=== PATIENT | female | born 1945 | race Caucasian/White ===

== ENCOUNTER → 2016-08-31 | Outpatient (REF) | payer OTHER, MEDICARE ==
[2016-08-31 10:10] LABS: BASO # 0.1 K/mm3 (0.0-0.2); BASO % 1.1 % (0.0-1.0); EOS # 0.5 K/mm3 (0.0-0.50); EOS % 6.2 % (0.0-3.0); LARGE UNSTAINED CELL # 0.2 K/mm3 (0.0-0.4); LARGE UNSTAINED CELL % 2.1 % (0.0-4.0); LYMPH # 2.1 K/mm3 (1.5-4.5); LYMPH % 24.7 % (24.0-44.0); MEAN CORPUSCULAR HEMOGLOBIN 29.1 pg (27.0-33.0); MEAN CORPUSCULAR VOLUME 88.3 fl (80.0-96.0); MONO # 0.8 K/mm3 (0.0-0.8); MONO % 9.8 % (0.0-5.0); NEUTROPHILS # 4.3 K/mm3 (1.8-7.7); NEUTROPHILS % 56.1 % (36.0-66.0); PLATELET COUNT, AUTOMATED 273 k/mm3 (150-450); RED CELL DISTRIBUTION WIDTH 13.1 % (11.5-14.5); WHITE BLOOD COUNT 7.7 K/mm3 (4.0-10.0)
[2016-08-31 10:11] LABS: ALBUMIN 3.8 GM/DL (3.2-5.2); ALBUMIN/GLOBULIN RATIO 1.12 (1.00-1.93); ALKALINE PHOSPHATASE 88 U/L (45-117); ALT/SGPT 22 U/L (12-78); ANION GAP 5 MEQ/L (8-16); AST/SGOT 20 U/L (15-37); BILIRUBIN,TOTAL 0.2 MG/DL (0.2-1.0); BLOOD UREA NITROGEN 24 MG/DL (7-18); CALCIUM LEVEL 9.3 MG/DL (8.8-10.2); CARBON DIOXIDE LEVEL 33 MEQ/L (21-32); CHLORIDE LEVEL 105 MEQ/L (98-107); CHOLESTEROL LEVEL 211 MG/DL (<200); GLOMERULAR FILTRATION RATE > 60.0 (>39); GLUCOSE, FASTING 108 MG/DL (83-110); POTASSIUM SERUM 3.8 MEQ/L (3.5-5.1); SODIUM LEVEL 143 MEQ/L (136-145); TOTAL PROTEIN 7.2 GM/DL (6.4-8.2); TRIGLYCERIDES LEVEL 80 MG/DL (<150)
== END ==
LOC: M LABDRAW1 09:27
PROVIDERS: ATTEND Family Medicine
DX: E78.00 Pure hypercholesterolemia, unspecified (principal); I10 Essential (primary) hypertension; R73.01 Impaired fasting glucose

== ENCOUNTER → 2016-11-28 | Outpatient (REF) | payer OTHER, MEDICARE ==
[2016-11-28 12:55] LABS: ALBUMIN 3.6 GM/DL (3.2-5.2); ALBUMIN/GLOBULIN RATIO 1.03 (1.00-1.93); ALKALINE PHOSPHATASE 91 U/L (45-117); ALT/SGPT 23 U/L (12-78); ANION GAP 8 MEQ/L (8-16); AST/SGOT 17 U/L (15-37); BILIRUBIN,TOTAL 0.4 MG/DL (0.2-1.0); BLOOD UREA NITROGEN 23 MG/DL (7-18); CALCIUM LEVEL 9.4 MG/DL (8.8-10.2); CARBON DIOXIDE LEVEL 31 MEQ/L (21-32); CHLORIDE LEVEL 102 MEQ/L (98-107); CHOLESTEROL LEVEL 248 MG/DL (<200); CREATININE FOR GFR 0.65 MG/DL (0.55-1.02); GLOMERULAR FILTRATION RATE > 60.0 (>39); GLUCOSE, FASTING 100 MG/DL (83-110); POTASSIUM SERUM 3.4 MEQ/L (3.5-5.1); SODIUM LEVEL 141 MEQ/L (136-145); TOTAL PROTEIN 7.1 GM/DL (6.4-8.2); TRIGLYCERIDES LEVEL 111 MG/DL (<150)
== END ==
LOC: M LABDRAW1 10:18
PROVIDERS: ATTEND Family Medicine
DX: R73.9 Hyperglycemia, unspecified (principal); E78.00 Pure hypercholesterolemia, unspecified

== ENCOUNTER → 2017-03-01 | Outpatient (REF) | payer OTHER, MEDICARE ==
[2017-03-01 14:20] LABS: ALKALINE PHOSPHATASE 90 U/L (45-117); ALT/SGPT 17 U/L (12-78); ANION GAP 9 MEQ/L (8-16); AST/SGOT 14 U/L (7-37); BILIRUBIN,TOTAL 0.3 MG/DL (0.2-1.0); BLOOD UREA NITROGEN 33 MG/DL (7-18); CALCIUM LEVEL 9.9 MG/DL (8.8-10.2); CARBON DIOXIDE LEVEL 31 MEQ/L (21-32); CHLORIDE LEVEL 99 MEQ/L (98-107); CHOLESTEROL LEVEL 199 MG/DL (<200); CREATININE FOR GFR 0.76 MG/DL (0.55-1.02); GLOMERULAR FILTRATION RATE > 60.0 (>39); GLUCOSE, FASTING 106 MG/DL (83-110); POTASSIUM SERUM 3.7 MEQ/L (3.5-5.1); SODIUM LEVEL 139 MEQ/L (136-145); TRIGLYCERIDES LEVEL 86 MG/DL (<150)
[2017-03-01 14:21] LABS: ALBUMIN 3.8 GM/DL (3.2-5.2); ALBUMIN/GLOBULIN RATIO 1.09 (1.00-1.93); TOTAL PROTEIN 7.3 GM/DL (6.4-8.2)
== END ==
LOC: M LAB REF 08:11
PROVIDERS: ATTEND Physician Assistant Medical
DX: E78.00 Pure hypercholesterolemia, unspecified (principal); I10 Essential (primary) hypertension; R73.03 Prediabetes

== ENCOUNTER → 2017-10-03 | Outpatient (REF) | payer OTHER, MEDICARE ==
[2017-10-03 12:02] LABS: HEMATOCRIT 37.6 % (36.0-47.0); HEMOGLOBIN 12.1 g/dl (12.0-15.5); MEAN CORPUSCULAR HEMOGLOBIN 28.5 pg (27.0-33.0); MEAN CORPUSCULAR HGB CONC 32.2 g/dl (32.0-36.5); MEAN CORPUSCULAR VOLUME 88.5 fl (80.0-96.0); PLATELET COUNT, AUTOMATED 353 10^3/uL (150-450); RED BLOOD COUNT 4.25 10^6/uL (4.00-5.40); RED CELL DISTRIBUTION WIDTH 13.9 % (11.5-14.5)
[2017-10-03 12:21] LABS: ALBUMIN/GLOBULIN RATIO 1.18 (1.00-1.93); ALKALINE PHOSPHATASE 106 U/L (45-117); ALT/SGPT 20 U/L (12-78); ANION GAP 8 MEQ/L (8-16); AST/SGOT 17 U/L (7-37); BILIRUBIN,TOTAL 0.3 MG/DL (0.2-1.0); BLOOD UREA NITROGEN 37 MG/DL (7-18); CALCIUM LEVEL 10.1 MG/DL (8.8-10.2); CARBON DIOXIDE LEVEL 30 MEQ/L (21-32); CHLORIDE LEVEL 105 MEQ/L (98-107); CHOLESTEROL LEVEL 167 MG/DL (<200); CHOLESTEROL RISK RATIO 2.197 (<5); CREATININE FOR GFR 0.85 MG/DL (0.55-1.30); GLOMERULAR FILTRATION RATE > 60.0 (>39); GLUCOSE, FASTING 106 MG/DL (70-100); HDL CHOLESTEROL 76 MG/DL (>40); NON-HDL-C 91 MG/DL; POTASSIUM SERUM 3.9 MEQ/L (3.5-5.1); SODIUM LEVEL 143 MEQ/L (136-145); TOTAL PROTEIN 7.4 GM/DL (6.4-8.2); TRIGLYCERIDES LEVEL 70 MG/DL (<150)
[2017-10-03 12:32] LABS: ESTIMATED AVERAGE GLUCOSE 128 MG/DL (60-110); HEMOGLOBIN A1c 6.1 %
[2017-10-03 12:39] LABS: TOTAL 25(OH) VITAMIN D 19.5 NG/ML (30.0-100.0)
== END ==
LOC: M LABDRAW1 08:14
DX: Z00.00 Encounter for general adult medical examination without abnormal findings (principal); R73.03 Prediabetes; E78.00 Pure hypercholesterolemia, unspecified; E55.9 Vitamin D deficiency, unspecified; Z79.899 Other long term (current) drug therapy
CPT/HCPCS: 80053

== ENCOUNTER → 2017-10-29 | Outpatient (CLI) | payer OTHER ==
[~2017-10-29] MED LIST: GASTROGRAFIN SOLUTION 30ML (Q9963) As Ordered; ISOVUE-370 76% 100ML VIAL (Q9967) As Ordered
== END ==
LOC: M RAD 13:37
DX: R14.0 Abdominal distension (gaseous) (principal)
CPT/HCPCS: Q9963

== ENCOUNTER → 2017-11-04 | Outpatient (CLI) | payer OTHER ==
[~2017-11-04] MED LIST changes: -GASTROGRAFIN SOLUTION 30ML (Q9963) As Ordered; -ISOVUE-370 76% 100ML VIAL (Q9967) As Ordered; +METHACHOLINE KIT (J7674) INH
== END ==
LOC: M CARPUL 06:47
DX: R06.02 Shortness of breath (principal)
CPT/HCPCS: J7674

== ENCOUNTER → 2018-05-13 | Outpatient (REF) | payer OTHER ==
[2018-05-13 10:59] LABS: HEMATOCRIT 40.1 % (36.0-47.0); HEMOGLOBIN 13.2 g/dl (12.0-15.5); MEAN CORPUSCULAR HEMOGLOBIN 28.2 pg (27.0-33.0); MEAN CORPUSCULAR HGB CONC 32.9 g/dl (32.0-36.5); MEAN CORPUSCULAR VOLUME 85.7 fl (80.0-96.0); PLATELET COUNT, AUTOMATED 377 10^3/uL (150-450); RED BLOOD COUNT 4.68 10^6/uL (4.00-5.40); WHITE BLOOD COUNT 8.3 10^3/uL (4.0-10.0)
[2018-05-13 11:13] LABS: ALT/SGPT 18 U/L (12-78); BILIRUBIN,TOTAL 0.3 MG/DL (0.2-1.0); BLOOD UREA NITROGEN 32 MG/DL (7-18); CALCIUM LEVEL 9.6 MG/DL (8.8-10.2); CARBON DIOXIDE LEVEL 28 MEQ/L (21-32); CHLORIDE LEVEL 100 MEQ/L (98-107); CHOLESTEROL LEVEL 199 MG/DL (<200); CHOLESTEROL RISK RATIO 2.117 (<5); CREATININE FOR GFR 0.84 MG/DL (0.55-1.30); GLOMERULAR FILTRATION RATE > 60.0 (>39); GLUCOSE, FASTING 109 MG/DL (70-100); HDL CHOLESTEROL 94 MG/DL (>40); LDL CHOLESTEROL 91 MG/DL (<100); NON-HDL-C 105 MG/DL; POTASSIUM SERUM 3.1 MEQ/L (3.5-5.1); SODIUM LEVEL 140 MEQ/L (136-145); TOTAL 25(OH) VITAMIN D 30.1 NG/ML (30.0-100.0); TOTAL PROTEIN 8.1 GM/DL (6.4-8.2); TRIGLYCERIDES LEVEL 69 MG/DL (<150)
[2018-05-13 11:40] LABS: HEMOGLOBIN A1c 6.4 %
== END ==
LOC: M LABDRAW1 09:21
PROVIDERS: ATTEND Nurse Practitioner Adult Health
DX: E78.00 Pure hypercholesterolemia, unspecified (principal); E55.9 Vitamin D deficiency, unspecified; R73.03 Prediabetes

== ENCOUNTER → 2018-08-14 | Outpatient (CLI) | payer MEDICARE ==
--- NOTE | 2018-08-14 13:50 | REP ---
ABDOMEN: TWO VIEWS. HISTORY: Hematuria. FINDINGS: Two views of the abdomen demonstrate a normal bowel gas pattern. There are surgical clips in the left pelvis. There is a levoconvex lumbar scoliosis with degenerative disc and facet changes. Psoas margins and flank stripes are intact. No mass or organomegaly is seen. There is a calcification overlying the right kidney measuring 0.5 cm in diameter compatible with an intrarenal calculus. There are other calcifications believed to be costochondral calcifications which project outside the kidney. Some vascular calcifications noted. IMPRESSION: 5 mm calcification projecting over the right kidney may be an intrarenal stone. Scoliosis. Normal bowel gas pattern. Electronically Signed by Cm Borja MD 08/14/2018 02:10 P
== END ==
LOC: M WUC 12:38
PROVIDERS: ATTEND Nurse Practitioner Adult Health
DX: N20.0 Calculus of kidney (principal); R30.0 Dysuria; R31.9 Hematuria, unspecified
CPT/HCPCS: 74018; 81002; 87086; G0463

== ENCOUNTER → 2018-08-21 | Outpatient (REF) | payer MEDICARE ==
[2018-08-21 17:33] LABS: APPEARANCE, URINE HAZY (CLEAR); BACTERIA, URINE AUTO NEGATIVE (NEGATIVE); BILIRUBIN, URINE AUTO NEGATIVE (NEGATIVE); BLOOD, URINE BLOOD NEGATIVE (NEGATIVE); COLOR, URINE YELLOW (YELLOW); GLUCOSE, URINE (UA) AUTO NEGATIVE (NEGATIVE); KETONE, URINE AUTO NEGATIVE (NEGATIVE); LEUKOCYTE ESTERASE, URINE AUTO 3+ (NEGATIVE); NITRITE, URINE AUTO NEGATIVE (NEGATIVE); PROTEIN, URINE AUTO NEGATIVE (NEGATIVE); RBC, URINE AUTO 1 /HPF (0-3); SPECIFIC GRAVITY URINE AUTO 1.017 (1.002-1.035); SQUAMOUS EPITHELIAL CELL UR AU 2 /HPF (0-6); UROBILINOGEN, URINE AUTO 0.2 mg/dL (0.0-2.0); WBC, URINE AUTO 13 /HPF (0-3)
== END ==
LOC: M SMT 17:11
PROVIDERS: ATTEND Nurse Practitioner Women's Health
DX: R31.29 Other microscopic hematuria (principal)
CPT/HCPCS: 36415; 80048; 81001; 87086; 88108; G0463

== ENCOUNTER → 2018-08-21 | Outpatient (CLI) | payer MEDICARE ==
[2018-08-21 17:42] LABS: CALCIUM LEVEL 9.5 MG/DL (8.8-10.2); CREATININE FOR GFR 1.39 MG/DL (0.55-1.30); GLOMERULAR FILTRATION RATE 39.6 (>39)
== END ==
LOC: M SMT 15:19
PROVIDERS: ATTEND Nurse Practitioner Women's Health
DX: R31.29 Other microscopic hematuria (principal)

== ENCOUNTER 2018-10-30 05:58 | Day surgery (SDC) | payer MEDICARE ==
[~2018-10-30] VITALS: Ht 149.9 cm; Wt 68.9 kg
[~2018-10-30 05:58] MED LIST changes: +COQ1200C3 PO; +CVS400CA PO; +DOCU-123 PO; +ESSE250T PO; +GEMF600T5 PO; +GLUCCAP5 PO; +LISI-538 PO; +MAPA325T2 PO; +MAPA500C PO; -METHACHOLINE KIT (J7674) INH; +MULTCAP PO; +OCUV1CAP4 PO; +OMEG12004 PO; +OYST1TAB PO; +VITA1CAP25 PO; +VITA80003 PO; +ZANT150T40 PO; +[UNRECOGNIZED DRUG - CODE] PO
[2018-10-30] MEDS ORDERED: ACETAMINOPHEN 325 MG TAB PO PRN (06:00)
[2018-10-30] MEDS ORDERED: BALANCED SALT IRRIGATION SOLUTION 500ML BAG (FOR OR EYE MACHINE) As Ordered ONE (06:12)
[2018-10-30] MEDS ORDERED: POVIDONE-IODINE 5% OPHTH PREP SOL 30ML As Ordered ONE (06:12)
[2018-10-30] MEDS ORDERED: CEFUROXIME 1MG/0.1ML INTRACAMERAL INJ As Ordered ONE (06:13)
[2018-10-30] MEDS ORDERED: DUOVISC (0.50ML VISCOAT/0.55ML PROVISC) OPHTH KIT As Ordered ONE (06:13)
[2018-10-30] MEDS ORDERED: LIDOCAINE 0.75%/EPINEPHRINE 0.025% IN BSS 1ML SYR INTRACAMERAL (OR ONLY) As Ordered ONE (06:13)
[2018-10-30] MEDS ORDERED: MIDAZOLAM INJ 2 MG/2 ML VIAL (J2250) As Ordered ONE (06:59)
[2018-10-30] MEDS ORDERED: fentaNYL 100 MCG/2 ML INJECTION (J3010) As Ordered ONE (06:59)
[2018-10-30] MEDS ORDERED: TROPICAMIDE 1% OPHTH SOLN 2ML OS ONE (07:00)
[2018-10-30] MEDS ORDERED: PHENYLEPHRINE 2.5% OPHTH SOL 2ML OS ONE (07:00)
[2018-10-30] MEDS ORDERED: PROPARACAINE 0.5% OPHTH SOL 15ML OS ONE (07:00)
[2018-10-30] MEDS ORDERED: OFLOXACIN 0.3 % (OCUFLOX) OPTH SOL 5ML OS ONE (07:00)
[2018-10-30 08:40] VITALS: BP 100/57
[2018-10-30] MEDS ORDERED: PROMETHAZINE INJ 25 MG/ML VIAL (J2550) IV PRN (08:45)
[2018-10-30] MEDS ORDERED: METOCLOPRAMIDE INJ 10MG/2ML VIAL (J2765) IV PRN (08:45)
[2018-10-30] MEDS ORDERED: TRIMETHOBENZAMIDE 300 MG CAP PO PRN (08:45)
[2018-10-30] MEDS ORDERED: oxyCODONE 5MG TAB PO PRN (08:45)
[2018-10-30] MEDS ORDERED: fentaNYL 100 MCG/2 ML INJECTION (J3010) IV PRN (08:45)
--- NOTE | 2018-10-31 22:30 | RO ---
DATE OF PROCEDURE: 10/30/2018 PREOPERATIVE DIAGNOSIS: 1. Visually significant nuclear sclerotic cataract left eye. 2. Presbyopia, left eye POSTOPERATIVE DIAGNOSIS: 1. Visually significant nuclear sclerotic cataract left eye. PROCEDURE PERFORMED: 1. Cataract extraction with use of phacoemulsification, and placement of intraocular lens, SN6AD1, 20.5 D, left eye, with use of intraoperative aberrometry. SURGEON: Dr. Barry Whitaker VENDING MACHINE REPAIRER: ANESTHESIA: Local with monitored anesthesia care (MAC). COMPLICATIONS: None. POSTOPERATIVE CONDITION: Stable. INDICATION FOR SURGERY: 1. Blurred vision affecting patient's activities of daily living. DESCRIPTION OF PROCEDURE: The patient was seen in the preoperative area and properly identified. The correct operative eye was identified and marked. The patient received topical anesthetic, antibiotics, and topical dilating drops. The patient was then transferred to the operating room. The correct side was re-identified and a time-out was performed. The eye was prepped and draped in a sterile fashion. The eyelids were isolated with Tegaderm tape, and the lids were held open with an adjustable speculum. A 1.0 mm paracentesis incision was made. Intraocular preservative-free Shugarcaine was then injected into the anterior chamber through the paracentesis. Using a 2.4 mm sharp-tipped keratome, the anterior chamber was entered via a temporal clear corneal incision. A continuous curvilinear capsulorrhexis was created with Utrata forceps. Hydrodissection was performed with balanced salt solution (BSS) on a blunt cannula until the nucleus was able to rotate freely. The crystalline lens was phacoemulsified and aspirated. Irrigation/aspiration was used to remove the cortical material. Cohesive viscoelastic was placed into the capsular bag to deepen it. The Optiwave Refractive Analysis (ORA) device was turned on, two sets of measurements were obtained, and the implant power was confirmed. The implant was placed into the capsular bag and allowed to unfold. Placement was confirmed by visualizing the anterior capsulorrhexis. Irrigation/aspiration was used to remove the viscoelastic. The clear corneal incision was hydrated with BSS on a blunt cannula. The lens was well positioned. The incisions were then tested for leaks and found to be negative. The eye was then palpated for appropriate pressure and adjusted accordingly with BSS. The eyelid speculum was then carefully removed. A shield was placed over the eye. The patient tolerated the procedure well and was discharged to the recovery unit in a stable condition. BETHANY
== END 2018-10-30 08:59 | disposition home or self-care (01) ==
LOC: M SDC 05:58
PROVIDERS: ATTEND Ophthalmology
DX: H25.12 Age-related nuclear cataract, left eye (principal); E11.9 Type 2 diabetes mellitus without complications; I10 Essential (primary) hypertension; E78.5 Hyperlipidemia, unspecified; G47.30 Sleep apnea, unspecified; K21.9 Gastro-esophageal reflux disease without esophagitis; Z79.899 Other long term (current) drug therapy
CPT/HCPCS: 66984; 92015; J2250; J3010; V2788

== ENCOUNTER → 2019-05-12 | Outpatient (CLI) | payer MEDICARE ==
--- NOTE | 2019-05-12 16:42 | REP ---
The PA and lateral chest: There are no comparisons. The lung adams are clear. The cardiac size is normal. The maria victoria and mediastinum are unremarkable. There is thoracic scoliosis convex right in the mid thoracic spine left at the thoracolumbar junction. Impression: Scoliosis. Otherwise, negative PA and lateral chest Electronically Signed by Lauri Smith MD 05/12/2019 04:34 P
== END ==
LOC: M WUC 10:49
PROVIDERS: ATTEND Nurse Practitioner Adult Health
DX: R05 Cough (principal)

== ENCOUNTER → 2019-05-15 | Outpatient (REF) | payer MEDICARE ==
[2019-05-15 11:51] LABS: ALBUMIN 3.8 GM/DL (3.2-5.2); BILIRUBIN,TOTAL 0.5 MG/DL (0.2-1.0); CHOLESTEROL RISK RATIO 2.675 (<5); CREATININE FOR GFR 0.98 MG/DL (0.55-1.30); GLOMERULAR FILTRATION RATE 59.1 (>39); POTASSIUM SERUM 4.8 MEQ/L (3.5-5.1); TOTAL PROTEIN 7.1 GM/DL (6.4-8.2)
[2019-05-15 12:06] LABS: TOTAL 25(OH) VITAMIN D 40.8 NG/ML (30.0-100.0)
[2019-05-15 12:07] LABS: HEMOGLOBIN A1c 6.4 %
== END ==
LOC: M LABDRAW1 09:02
PROVIDERS: ATTEND Nurse Practitioner Adult Health
DX: R73.03 Prediabetes (principal); I10 Essential (primary) hypertension; E55.9 Vitamin D deficiency, unspecified; E78.00 Pure hypercholesterolemia, unspecified; Z79.899 Other long term (current) drug therapy

== ENCOUNTER → 2019-10-01 | Outpatient (REF) | payer MEDICARE ==
[~2019-10-01] MED LIST changes: -MAPA325T2 PO; +MAPA325T8 PO
[2019-10-01 17:30] LABS: APPEARANCE, URINE CLOUDY (CLEAR); BACTERIA, URINE AUTO NEGATIVE (NEGATIVE); BILIRUBIN, URINE AUTO NEGATIVE (NEGATIVE); BLOOD, URINE BLOOD 1+ (NEGATIVE); COLOR, URINE YELLOW (YELLOW); GLUCOSE, URINE (UA) AUTO NEGATIVE (NEGATIVE); KETONE, URINE AUTO NEGATIVE (NEGATIVE); LEUKOCYTE ESTERASE, URINE AUTO 3+ (NEGATIVE); MUCUS, URINE SMALL (NEGATIVE); NITRITE, URINE AUTO NEGATIVE (NEGATIVE); PROTEIN, URINE AUTO NEGATIVE (NEGATIVE); RBC, URINE AUTO 6 /HPF (0-3); SPECIFIC GRAVITY URINE AUTO 1.019 (1.002-1.035); SQUAMOUS EPITHELIAL CELL UR AU 8 /HPF (0-6); UROBILINOGEN, URINE AUTO 0.2 mg/dL (0.0-2.0); WBC, URINE AUTO 35 /HPF (0-3)
== END ==
LOC: M SFHCPLAZ 16:34
PROVIDERS: ATTEND Physician Assistant Medical
DX: R35.0 Frequency of micturition (principal)

== ENCOUNTER → 2019-12-01 | Outpatient (REF) | payer MEDICARE ==
[2020-01-15 21:10] LABS: ALBUMIN 3.8 GM/DL (3.2-5.2); BILIRUBIN,TOTAL 0.4 MG/DL (0.2-1.0); CALCIUM LEVEL 10.4 MG/DL (8.8-10.2); CHOLESTEROL RISK RATIO 1.877 (<5); CREATININE FOR GFR 1.05 MG/DL (0.55-1.30); GLOMERULAR FILTRATION RATE 54.4 (>39); POTASSIUM SERUM 4.9 MEQ/L (3.5-5.1); TOTAL 25(OH) VITAMIN D 24.9 NG/ML (30.0-100.0); TOTAL PROTEIN 7.1 GM/DL (6.4-8.2)
== END ==
LOC: M LABWUC 07:24 → M SFHCPLAZ 07:24
PROVIDERS: ATTEND Nurse Practitioner Adult Health
DX: R73.03 Prediabetes (principal); E55.9 Vitamin D deficiency, unspecified; I10 Essential (primary) hypertension; E78.00 Pure hypercholesterolemia, unspecified; Z79.899 Other long term (current) drug therapy

== ENCOUNTER → 2020-03-11 | Outpatient (CLI) | payer MEDICARE ==
--- NOTE | 2020-03-11 12:38 | REPPI ---
INDICATION: PAIN. COMPARISON: None. TECHNIQUE: Four views FINDINGS: No acute fracture or destructive osseous lesion. The mortise is intact. There is a smoothly marginated well corticated 5 mm sized ossific density just distal to the distal fibular tip. There is a small plantar calcaneal heel spur. IMPRESSION: Chronic changes as described above. <Electronically signed by Lobito Vaz > 03/11/20 [id number]
--- NOTE | 2020-03-11 12:49 | REPPI ---
INDICATION: PAIN. COMPARISON: 12/21/2011 TECHNIQUE: Four views FINDINGS: There is a hallux valgus deformity which is essentially unchanged. There is asymmetric joint space narrowing involving the 1st metatarsophalangeal joint. More mild degenerative changes seen throughout the foot. These, however, have increased from the prior exam. There is a plantar calcaneal heel spur. This has increased in size from the prior exam. There is no evidence of an acute fracture.. IMPRESSION: Chronic changes as described above. <Electronically signed by Lobito Vaz > 03/11/20 [id number]
== END ==
LOC: M PLAIMG 11:23
PROVIDERS: ATTEND Physician Assistant
DX: M20.12 Hallux valgus (acquired), left foot (principal); M19.072 Primary osteoarthritis, left ankle and foot; M77.32 Calcaneal spur, left foot; M25.572 Pain in left ankle and joints of left foot; M79.672 Pain in left foot

== ENCOUNTER → 2020-05-25 | Outpatient (CLI) | payer MEDICARE ==
[~2020-05-25] MED LIST changes: -LISI-538 PO; +LISI20TA33 PO
[2020-05-25 17:19] LABS: HEMATOCRIT 35.7 % (36.0-47.0); HEMOGLOBIN 11.4 g/dl (12.0-15.5); MEAN CORPUSCULAR HEMOGLOBIN 28.9 pg (27.0-33.0); MEAN CORPUSCULAR HGB CONC 31.9 g/dl (32.0-36.5); MEAN CORPUSCULAR VOLUME 90.4 fl (80.0-96.0); PLATELET COUNT, AUTOMATED 462 10^3/uL (150-450); RED BLOOD COUNT 3.95 10^6/uL (4.00-5.40); WHITE BLOOD COUNT 12.4 10^3/uL (4.0-10.0)
== END ==
LOC: M PLALAB 14:16
PROVIDERS: ATTEND Physician Assistant Medical
DX: R19.5 Other fecal abnormalities (principal)
CPT/HCPCS: 36415; 85027; G0463

== ENCOUNTER → 2020-06-02 | Outpatient (REF) | payer MEDICARE ==
[2020-06-02 11:04] LABS: ALBUMIN 4.1 GM/DL (3.2-5.2); BILIRUBIN,TOTAL 0.2 MG/DL (0.2-1.0); CALCIUM LEVEL 10.1 MG/DL (8.8-10.2); CHOLESTEROL RISK RATIO 2.614 (<5); CREATININE FOR GFR 1.01 MG/DL (0.55-1.30); GLOMERULAR FILTRATION RATE 56.9 (>39); POTASSIUM SERUM 4.9 MEQ/L (3.5-5.1); TOTAL PROTEIN 7.5 GM/DL (6.4-8.2)
== END ==
LOC: M SFHCPLAZ 08:02
PROVIDERS: ATTEND Nurse Practitioner Adult Health
DX: R73.03 Prediabetes (principal); E55.9 Vitamin D deficiency, unspecified; I10 Essential (primary) hypertension; E78.00 Pure hypercholesterolemia, unspecified; R19.5 Other fecal abnormalities; D64.9 Anemia, unspecified

== ENCOUNTER → 2020-06-02 | Outpatient (CLI) | payer MEDICARE ==
[2020-06-02 11:00] LABS: PERCENT SATURATION 15.5 % (13.2-45.0)
== END ==
LOC: M PLALAB 08:00
PROVIDERS: ATTEND Physician Assistant Medical
DX: R19.5 Other fecal abnormalities (principal); D64.9 Anemia, unspecified

== ENCOUNTER → 2020-06-11 | Outpatient (CLI) | payer MEDICARE ==
[~2020-06-11] MED LIST changes: +CINN500C15 PO; +COQ-100C5 PO; +CYAN500T14 PO; +D31000TA2 PO; +FAMO20TA5 PO; +GNP10TAB20 PO; +IBUP-1022 PO; +LISI-898 PO; +LOPI600T PO; +RA T500C2 PO; +VITMTA PO; +omega red PO; +vitamin b1 PO
== END ==
LOC: M LABSMTC 10:05
PROVIDERS: ATTEND Anesthesiology
DX: Z01.812 Encounter for preprocedural laboratory examination (principal); Z20.822 Contact with and (suspected) exposure to COVID-19

== ENCOUNTER 2020-06-16 09:00 | Day surgery (SDC) | payer MEDICARE ==
[~2020-06-16] VITALS: Ht 152.4 cm; Wt 69.3 kg
[~2020-06-16 09:00] MED LIST changes: +LIDOCAINE 2% 100MG/5ML SDV (FOR ANES.) As Ordered ONE; +NS 1,000 ML IV ONE; +propofoL 500 MG/50 ML VIAL As Ordered ONE
--- OUTSIDE RECORDS SUMMARY | 2020-06-16 09:05 | CCD | Continuity of Care Document ---
Author Author Lucy ARENAS MD Organization Unknown Address [address] [place] [id number] Phone [phone] Care Team Providers Care Net Web Application Developer Name Role Phone Swati Guzman M.D. AUTM [phone] Valeria Deng R.N. AUTM [phone] AUTM Unavailable Problems Active Problems Provider Date Obstructive sleep apnea syndrome Munira Meek A.N.P. Onset: 05/17/2010 Essential hypertension ZACH Slater Onset: Social History Type Date Description Comments Sex Unknown ETOH Use Drinks Alcoholic Beverages Rarel y Tobacco Use Start: Unknown Patient has never smoked Recreational Drug Use Denies Drug Use Tobacco Use Start: Unknown No Exposure To Second-Hand Smoke In The Home Exercise Type/Frequency Occasional Mild Exercise Allergies, Adverse Reactions, Alerts Description No Known Drug Allergies Medications Active Medications SIG Qnty Indications Ordering Provide r Date Suprep Bowel Prep Kit 17.5-3.13-1.6GM/177ML Solution take per doctor's bowel prep instructions. 354ml K21.9 Kody Arenas MD 05/19/[address] take 4 tabs by mouth prior to procedure per instructions. 4tabs R19.5 Kody Arenas MD 05/19/2020 Famotidine 20mg Tablets 1 at hs Unknown Turmeric Curcumin Capsules D aily Unknown Flaxseed Oil 1000mg Capsules Daily Unknown Coq10 100mg Capsules Daily Unknown [place]-3 Krill Oil 300mg Capsules Daily Unknown Niacinamide 500mg Tablets Martina ly Unknown Vitamin B1 100mg Tablets 1 by mouth every day Unknown Vitamin D3 125mcg (5000 Ut) Capsul es Daily Unknown Lutein 10mg Tablets Daily Unknown Acidophilus Lactobacillus Capsule s 1 by mouth every day Unknown Lisinopril 5mg Tablets bid Unknown Dhea 25mg Tablets 1 po qod Unknown Cinnamon 500mg Capsules 2 po qd Unknown Acetaminophen 500mg Tablets 2 tablets every six hours as needed Unknown Gemfibrozil 600mg Tablets bid Unknown Glucosamine Chondroitin 1500 Complex Max imum Strength 1500Com Capsules Unknow n Magnesium 500mg Tablets once a day with a meal Unknown Multivitamin Adult Chewtabs 1 by mouth every day Unknown Immunizations Description No Information Available Vital Signs Date Vital Result Comment 05/19/2020 1:11pm BP Systolic 132 mmHg BP Diastolic 82 mmHg Height 60 inches 5'0" Weight 154.00 lb BMI (Body Mass Index) 30.1 kg/m2 [place] Body Weight 100 lb Weight 69.854 kg BSA (Body Surface Area) 1.67 m2 12/04/2018 9:18am Height 60 inches 5'0" Weight 150.00 lb BMI (Body Mass Index) 29.3 kg/m2 [place] Body Weight 100 lb Weight 68.040 kg BSA (Body Surface Area) 1.65 m2 Results Test Acquired Date Facility Test Result H/L Range Note Total Iron Binding Capacit 06/02/2020 [facility] [address] [place] [address] [phone] Iron (Fe) 74 g/dL Normal 50-170 Total Iron Binding Capacity 476 g/dL High 250-450 Percent Saturation 15.5 % Normal 13.2-45.0 Complete Blood Count 05/25/2020 [facility] [address] [place] [address] [phone] White Blood Count 12.4 10 High 4.0-10.0 Red Blood Count 3.95 10 Low 4.00-5.40 Hemoglobin 11.4 g/dL Low 12.0-15.5 Hematocrit 35.7 % Low 36.0-47.0 Mean Corpuscular Volume 90.4 fl Normal 80.0-96.0 Mean Corpuscular Hemoglobin 28.9 pg Normal 27.0-33.0 Mean Corpuscular HGB Conc 31.9 g/dL Low 32.0-36.5 Red Cell Distribution Width 13.3 % Normal 11.5-14.5 Platelet Count, Automated 462 10 High 150-450 Nucleated Red Blood Cell % 0.0 % Normal 0-0 1 1 05/27/20 (SatMay 27) 04:45 P M RAMEZ KING Abnormalities noted. Will discuss with patient. See triage. Procedures Description No Information Available Medical Devices Description No Information Available Encounters Description No Information Available Assessments Date Code Description Provider 05/19/2020 K21.9 Gastro-esophageal reflux disease without esophagitis ZACH Slater 05/19/2020 R19.5 Other fecal abnormalities [place] ZACH Schreiber 05/19/2020 K62.5 Hemorrhage of anus and rectum [place] 05/19/2020 R19.8 Other specified symp toms and signs involving the digestive system and abdomen ZACH Slater Plan of Treatment Future Appointment(s):* 06/22/2020 1:20 pm - Mal Morrison M.D. at [facility] * 06/16/2020 8:03 am - Mal Morrison M.D. at [facility] 05/19/2020 - ZACH Slater* K21.9 Gastro-esophageal reflux disease without esophagitis * R19.5 Other fecal abnormalities * K62.5 Hemorrhage of anus and rectum * R19.8 Other specified symptoms and signs involving the digestive system and abdomen * * New Medication:* Suprep Bowel Prep Kit 17.5-3.13-1.6 GM/177ML * New Orders:* Endoscopy, Ordered: 05/19/20 * Comments:* Will arrange for upper endoscopy and colonoscopy. Reviewed risks and benefits of the procedures, as well as other options, with the patient. Prep for this procedure was discussed with patient, including risks and side effects associated with the prep. Patient verbalized understanding of all of the above and is in agreement to proceed. Patient will seek medical attention for any acute changes. Will monitor. * Follow up:* As scheduled, sooner if needed. Functional Status Description No Information Available Mental Status Description No Information Available Referrals Refer to Reason for Referral Status Appt Date Mal Morrison M.D. [phone] ([facility] [id number] [phone]) Scheduled 06/17/[address], [place] [id number] [phone] Mal Morrison M.D. colo screening and requesting EGD Sc heduled 04/26/[address], [facility] [address] [place] [address] [phone]
--- OUTSIDE RECORDS SUMMARY | 2020-06-16 09:05 | CCD ---
Author Author [facility] Organization [facility] Address Unknown Phone Unavailable Care Team Providers Care Bone Tender Name Role Phone Valeria Deng Unavailable PROBLEMS Type Condition ICD9-CM Code [id number] Code Onset Dates Condition S tatus W/U Status Risk SNOMED Code Notes Problem Tremor of left hand R25.1 Active confirmed 179487293 Problem Pure hypercholesterolemia E78.00 Active confirmed 170910078 Problem Prediabetes R73.03 Active confirmed 84075294 2 Problem Melanocytic nevi of left upper limb, including shoulder D22.62 Active confirmed 391768311 Problem Melanocytic nevi of right lower limb, including hip D22.71 Active confirmed 561307623 Problem Gastroesophageal reflux disease without esophagitis K21.9 Active confirmed 241952918 Problem BMI 30.0-30.9,adult Z68.30 Active confirmed 788265463 Problem Other chronic pain G89.29 Active confirmed 8 0681670 Problem Essential hypertension I10 Active confirmed 25758458 Problem Abdominal bloating R14.0 Active confirmed 1 10763039 Problem Diverticulosis K57.90 Active confirmed 79036 1000 Problem Melanocytic nevi of left lower limb, including hip D22.72 Active confirmed 473790655 Problem Decreased hearing of both ears H91.93 Active confir med 863644160 Problem Melanocytic nevi of right upper limb, including shoulder D22.61 Active confirmed 457182996 Problem Melanocytic nevi of trunk D22.5 Active confirmed 239666841 Problem SK (seborrheic keratosis) L82.1 Active confirmed 472577947 Problem Acute left-sided low back pain with left-sided sciatica M54.42 Active confirmed 302439140 Problem Obstructive sleep apnea syndrome G47.33 Active conf irmed 40374086 Problem Sciatica of left side M54.32 Active confirmed 97926281 Problem Balance problem R26.89 Active confirmed 3876 77858 Problem Vitamin D deficiency E55.9 Active confirmed 88621435 Problem Family history of skin cancer Z80.8 Active confirm ed 370910947 Problem Melanocytic nevi of face D22.30 Active confirmed 673748200 Problem Lentigines L81.4 Active confirmed 039258634 Problem Oden angioma D18.01 Active confirmed 64807 01 ALLERGIES No Known Allergies ENCOUNTERS from 1944 to 2020-05-30 Encounter Location Date Provider Diagnosis [address] [address] May, Valeria Servage Sciatica of left side M54.32 ; Left shou lder pain, unspecified chronicity M25.512 ; Right hip pain M25.551 and Left hip pain M25.552 IMMUNIZATIONS Vaccine Route Administration Date Status Influenza (Pharmacy Given) Unknown Feb 16, 2019 Admin istered Influenza (18 yrs & older) Flublok Unknown Feb 01, 2020 Administered Influenza (High Dose 65 & up) Unknown Mar 25, 2012 Ad ministered Zoster 0.65mL (Zostavax) Unknown Feb 23, 2009 Adminis tered Pneumococcal Adult 0.5mL (Pneumovax 23) IM Intramuscular Feb 29, 2020 Administered Pneumococcal Adult 0.5mL (Pneumovax 23) Unknown Mar 01, 2010 Administered Pneumococcal 0.5mL (Prevnar 13) IM Intramuscular May 15, 2017 Administered TD Adult 0.5mL (Tetanus) Unknown Dec 31, 2003 Adminis tered SOCIAL HISTORY Tobacco Use: Social History Observation Description Date Details (start date - stop date) Never Smoker Sex Assigned At : Social History Observation Description Sex Assigned At Unknown Education: Question Answer Notes Level of Education: Finished High School business school Audit Question Answer Notes Total Score: 0 Interpretation: Alcohol Education Language: Question Answer Notes Languages spoken: Tuvaluan Protestant: Question Answer Notes Protestant 21 Orthodox No jain beliefs that would impact health care. Sexual Hx: Question Answer Notes Had sex in the last 12 months (vaginal, oral, or anal)? No LMP: menopause Have you ever had an STD? No Drug and Alcohol Question Answer Notes Total Score: 0 Interpretation: No problems reported Alcohol Screening: Question Answer Notes Did you have a drink containing alcohol in the past year? Ye s Points 1 Interpretation Negative How often did you have six or more drinks on one occas ion in the past year? Never (0 points) How many drinks did you have on a typica l day when you were drinking in the past year? 1 or 2 (0 points) How often did you have a drink containing alcohol in t he past year? Monthly or less (1 point) Tobacco Use: Question Answer Notes Are you a: never smoker never smoker REASON FOR REFERRAL No Information VITAL SIGNS Weight 156 lbs May, Height 60 in May, BMI 30.46 kg/m2 May, Heart Rate 86 /min May, Respiratory Rate 18 /min May, Temperature 95% degrees Fahrenheit May, Oximetry 95% May, Blood pressure systolic 140 mm Hg May, Blood pressure diastolic 84 mm Hg May, MEDICATIONS Medication SIG (Take, Route, Frequency, Duration) Notes Start Da te End Date Status Gemfibrozil 600 MG 1 tablet 30 minutes before m orning and evening meals Orally twice daily for 90 Active Magnesium 65 MG 1 tablet Orally Once a day Active Tramadol HCl 50 MG 1 tablet as needed Orally TID prn for 5 days Feb, Not-Taking Multivitamin Adults 50+ - 1 tab Orally Daily Active Glucosamine Chond Double Str - 1 tab Orally Daily Active Acetaminophen Extra Strength 500 MG 1 tablet as needed Orally twice a day Active Lutein 10 MG 1 tablet with a meal Orally Once a day Active Voltaren 1 % 1 gram to lower back and lower leg Trans dermal Q6 hours for 7 days Feb, Active Robaxin 500 MG 1-2 tablets Orally Qhs for 5 days Feb, 020 Active Lisinopril 5 MG 2 Orally Once a day for 90 days Unknown Vitamin D3 Super Strength 2000 UNIT 1 tablet Orally Once a day Active Famotidine 20 MG 1 tablet at bedtime as needed Orally Once a day for 90 days Active Vitamin A 5000 UNIT Orally Activ e Co Q 10 100 MG 1 capsule with a meal Orally Once a day Active Vitamin E 400 UNIT 1 capsule Orally Once a day Active [place] 3 1200 MG 1 capsule Orally Once a day Active Lisinopril 5 MG 1 tablet Orally bid for 90 Active Fluticasone Propionate 50 MCG/ACT 2 sprays in each nos tril Nasally Once a day for 90 day(s) Jul, Not-Taking PROCEDURES No Information RESULTS No Results REASON FOR VISIT back pain-call in MEDICAL (GENERAL) HISTORY Type Description Date Medical History essential hypertension Medical History hypercholesterolemia Medical History obstructive sleep apnea uses CPAP Medical History osteopenia-bone density study 2011 refus es treatment 09/21/2013 Medical History palpitations Medical History left foot tendon tear treate d with orthotics refuses surgery(workmen's compensation injury dated 12/03/2011) not a medical issue. Medical History hearing loss left ear Medical History prediabetes November 2016 hemoglobin A1c w as 6.3, 05/13/18 6.4 Medical History 08/12/2007 stress test negative Medical History vitamin d deficiency Surgical History Neck lesion removed 02/1976 Surgical History right foot bunionectomy 02/1981 Surgical History Cone biopsy for cervical cancer 02/1983 Surgical History Uterine suspension laparoscopically 06/21 006 Surgical History Epigastric hernia repair 04/2011 Surgical History Bilateral cataract surgery-Dr. Whitaker 10/30 & 11/13/2018 Hospitalization History as above Goals Section No Information Health Concerns No Information MEDICAL EQUIPMENT No Information MENTAL STATUS No Information FUNCTIONAL STATUS No Information ASSESSMENTS Encounter Date Diagnosis Assessment Notes Treatment Notes Treatm ent Clinical Notes May, Sciatica of left side (ICD-10 - M54.32) Sciatica has improved, states she attended physical therapy 3 times and they gave her exercises to perform at home Physical therapy note reviewed they recommended 2-3 times a week for 6-8 weeks. Patient felt that she did not need to have it that long so she stopped going felt sometimes it made it worse. May, Left shoulder pain, unspecified chronicity (ICD- 10 - M25.512) discussed using otc items bio freeze, aspercream with lidocaine, voltaren gel for compfrt May, Right hip pain (ICD-10 - M25.551) prior xrays reviewed with pt has thoracic scoliosis in the midthoracic region she also has mild degenerative changes noted upon x-ray May, Left hip pain (ICD-10 - M25.552) prior hip xray indicates mild to moderate asymmmetric hip joint space narrowing. does not want referrl to ortho May, Other discussed with pt ahe has arthritis she is going to have joint discomfort, try tylenol for comfprt does not like tramadol made her dizzy, discussed try cuttin it in half to see if she tolerates that does. dicussed how she is not doing as much work around the yard as she does in the summer. PLAN OF TREATMENT Treatment Notes Assessment Notes Clinical Notes Sciatica of left side Sciatica has impro jose, states she attended physical therapy 3 times and they gave her exercises to perform at homePhysical therapy note reviewed they recommended 2-3 times a week for 6-8 weeks. Patient felt that she did not need to have it that long so she stopped going felt sometimes it made it worse. Left shoulder pain, unspecified chronicity discussed using otc items bio freeze, aspercream with lidocaine, voltaren gel for compfrt Right hip pain prior xrays reviewed with pt has thoracic scoliosis in the midthoracic region she also has mild degenerative changes noted upon x-ray Left hip pain prior hip xray indic ates mild to moderate asymmmetric hip joint space narrowing.does not want referrl to ortho Next Appt Details valeria as scheduled Reason: Provider Name:Valeria Deng, 08:00:00 AM, [address] [place], [address], Insurance Providers Payer Name Payer Address Payer Phone Insured Name Patient Relati onship to Insured Coverage Start Date Coverage End Date [employer] [address] [address] [facility] [phone] [employer] self
--- OUTSIDE RECORDS SUMMARY | 2020-06-16 09:06 | CCD ---
Author Author [facility] Organization [facility] Address Unknown Phone Unavailable Care Team Providers Care Acidizer Name Role Phone Valeria Deng Unavailable PROBLEMS Type Condition ICD9-CM Code [id number] Code Onset Dates Condition S tatus W/U Status Risk SNOMED Code Notes Problem Tremor of left hand R25.1 Active confirmed 850776866 Problem Pure hypercholesterolemia E78.00 Active confirmed 746068884 Problem Prediabetes R73.03 Active confirmed 86532422 2 Problem Melanocytic nevi of left upper limb, including shoulder D22.62 Active confirmed 721060836 Problem Melanocytic nevi of right lower limb, including hip D22.71 Active confirmed 070421121 Problem Gastroesophageal reflux disease without esophagitis K21.9 Active confirmed 077658122 Problem BMI 30.0-30.9,adult Z68.30 Active confirmed 273559158 Problem Other chronic pain G89.29 Active confirmed 8 1694447 Problem Essential hypertension I10 Active confirmed 13296079 Problem Abdominal bloating R14.0 Active confirmed 1 86113746 Problem Diverticulosis K57.90 Active confirmed 55353 1000 Problem Melanocytic nevi of left lower limb, including hip D22.72 Active confirmed 860222613 Problem Decreased hearing of both ears H91.93 Active confir med 281427132 Problem Melanocytic nevi of right upper limb, including shoulder D22.61 Active confirmed 268908293 Problem Melanocytic nevi of trunk D22.5 Active confirmed 163798921 Problem SK (seborrheic keratosis) L82.1 Active confirmed 391065979 Problem Acute left-sided low back pain with left-sided sciatica M54.42 Active confirmed 485417091 Problem Obstructive sleep apnea syndrome G47.33 Active conf irmed 88349146 Problem Sciatica of left side M54.32 Active confirmed 32577734 Problem Balance problem R26.89 Active confirmed 3876 61142 Problem Vitamin D deficiency E55.9 Active confirmed 97867051 Problem Family history of skin cancer Z80.8 Active confirm ed 686895987 Problem Melanocytic nevi of face D22.30 Active confirmed 160321129 Problem Lentigines L81.4 Active confirmed 140059714 Problem Oden angioma D18.01 Active confirmed 10879 01 ALLERGIES No Known Allergies ENCOUNTERS from 1945 to 2020-05-23 Encounter Location Date Provider Diagnosis [address] [place] [address] 29 Apr, 2020 Valeria Servage IMMUNIZATIONS Vaccine Route Administration Date Status Influenza [...] Education Language: Question Answer Notes Languages spoken: Uzbek Sikhism: Question Answer Notes Sikhism 21 Tenriism No zoroastrianism beliefs that would impact health care. Sexual [...] REASON FOR REFERRAL No Information VITAL SIGNS No information MEDICATIONS Medication SIG (Take, Route, Frequency, Duration) Notes Start Da te End Date Status Gemfibrozil 600 MG 1 tablet 30 minutes before m orning and evening meals Orally twice daily for 90 Active Lutein 10 MG 1 tablet with a meal Orally Once a day Active Lisinopril 5 MG 1 tablet Orally bid for 90 Active Vitamin A 5000 UNIT Orally Activ e Acetaminophen Extra Strength 500 MG 1 tablet as needed Orally twice a day Active Glucosamine Chond Double Str - 1 tab Orally Daily Active Magnesium 65 MG 1 tablet Orally Once a day Active Voltaren 1 % 1 gram to lower back and lower leg Trans dermal Q6 hours for 7 days Feb, Active Famotidine 20 MG 1 tablet at bedtime as needed Orally Once a day for 90 days Active Multivitamin Adults 50+ - 1 tab Orally Daily Active Robaxin 500 MG 1-2 tablets Orally Qhs for 5 days Feb, 020 Active Lisinopril 5 MG 2 Orally Once a day for 90 days Not-Taking Fluticasone Propionate 50 MCG/ACT 2 sprays in each nos tril Nasally Once a day for 90 day(s) Jul, Not-Taking Tramadol HCl 50 MG 1 tablet as needed Orally TID prn for 5 days Feb, Active Vitamin D3 Super Strength 2000 UNIT 1 tablet Orally Once a day Active [place] 3 1200 MG 1 capsule Orally Once a day Active Vitamin E 400 UNIT 1 capsule Orally Once a day Active Co Q 10 100 MG 1 capsule with a meal Orally Once a day Active PROCEDURES No Information RESULTS No Results REASON FOR VISIT gemfibrozil MEDICAL (GENERAL) HISTORY Type Description Date Medical [...] No Information FUNCTIONAL STATUS No Information ASSESSMENTS No Information PLAN OF TREATMENT Medication Medication Name Sig Start Date Stop Date Gemfibrozil 600 MG 1 tablet 30 minutes before m orning and evening meals Orally twice daily for 90 Next Appt Details Provider Name:Valeria Deng, 08:00:00 AM, [address] [place], [address], Insurance Providers Payer Name Payer Address Payer Phone Insured Name Patient Relati onship to Insured Coverage Start Date Coverage End Date [facility] [address] [address] [facility] [phone] KINSEY URIBE self
--- OUTSIDE RECORDS SUMMARY | 2020-06-16 09:06 | CCD ---
Author Author [facility] Organization [facility] Address Unknown Phone Unavailable Care Team Providers Care Graphic Design Teacher Name Role Phone Valeria Deng Unavailable PROBLEMS Type Condition ICD9-CM Code [id number] Code Onset Dates Condition S tatus SNOMED Code Notes Problem Tremor of left hand R25.1 Active 566595616 Problem Pure hypercholesterolemia E78.00 Active 329285 004 Problem Prediabetes R73.03 Active 049360010 Problem Melanocytic nevi of left upper limb, including shoulder D22.62 Active 487378437 Problem Melanocytic nevi of right lower limb, including hip D22.71 Active 385899509 Problem Gastroesophageal reflux disease without esophagitis K21.9 Active 602335110 Problem BMI 30.0-30.9,adult Z68.30 Active 928576595 Problem Other chronic pain G89.29 Active 12386806 Problem Essential hypertension I10 Active 37814800 Problem Abdominal bloating R14.0 Active 294966162 Problem Diverticulosis K57.90 Active 073715837 Problem Melanocytic nevi of left lower limb, including hip D22.72 Active 731475053 Problem Decreased hearing of both ears H91.93 Active 1 18154995 Problem Melanocytic nevi of right upper limb, including shoulder D22.61 Active 900370838 Problem Melanocytic nevi of trunk D22.5 Active 200475 002 Problem SK (seborrheic keratosis) L82.1 Active 294177 000 Problem Acute left-sided low back pain with left-sided sciatica M54.42 Active 956148538 Problem Obstructive sleep apnea syndrome G47.33 Active 01940186 Problem Sciatica of left side M54.32 Active 23704541 Problem Balance problem R26.89 Active 697461756 Problem Vitamin D deficiency E55.9 Active 97781250 Problem Family history of skin cancer Z80.8 Active 42 7803384 Problem Melanocytic nevi of face D22.30 Active 2139515 04 Problem Lentigines L81.4 Active 016436398 Problem Oden angioma D18.01 Active 1453177 ALLERGIES No Known Allergies ENCOUNTERS from 1945 to 2020-05-17 Encounter Location Date Provider Diagnosis [address] [address] Apr, Valeria Servage IMMUNIZATIONS Vaccine Route Administration Date [...] Education Language: Question Answer Notes Languages spoken: Irish Sabianism: Question Answer Notes Sabianism 21 Samaritan No presybeterian beliefs that would impact health care. Sexual [...] Notes Start Da te End Date Status Acetaminophen Extra Strength 500 MG 1 tablet as needed Orally twice a day Active Lutein 10 MG 1 tablet with a meal Orally Once a day Active Gemfibrozil 600 MG 1 tablet 30 minutes before m orning and evening meals Orally twice daily for 90 Active Vitamin A 5000 UNIT Orally Activ e Lisinopril 5 MG 1 tablet Orally bid for 90 Active Glucosamine Chond Double Str - 1 [...] tablets Orally Qhs for 5 days Feb, Active Lisinopril 5 MG 2 Orally Once a day for 90 days Not-Taking Fluticasone Propionate 50 MCG/ACT 2 sprays in each nos tril Nasally Once a day for 90 day(s) Jul, Not-Taking Tramadol HCl 50 MG 1 tablet as needed Orally TID prn for 5 days Feb, Active Vitamin D3 Super Strength 2000 UNIT 1 tablet Orally Once a day Active [place] 3 1200 MG 1 capsule Orally Once a day Active Vitamin E 400 UNIT 1 capsule Orally Once a day Active Co Q 10 100 MG 1 capsule with a meal Orally Once a day Active PROCEDURES No Information RESULTS No Results REASON FOR VISIT GI MEDICAL (GENERAL) HISTORY Type Description Date Medical [...] Details Provider Name:Valeria Deng, 08:00:00 AM, [address] [place], [address], Insurance Providers Payer Name Payer Address Payer Phone Insured Name Patient Relati onship to Insured Coverage Start Date Coverage End Date [facility] [employer] [facility] [address] [address] [facility] [address] KINSEY URIBE self
--- OUTSIDE RECORDS SUMMARY | 2020-06-16 09:06 | CCD ---
Author Author [facility] Organization [facility] Address Unknown Phone Unavailable Care Team Providers Care Acid Operator Name Role Phone Valeria Deng Unavailable PROBLEMS Type Condition ICD9-CM Code [id number] Code Onset Dates Condition S tatus SNOMED Code Notes Problem Tremor of left hand R25.1 Active 179628911 Problem Pure hypercholesterolemia E78.00 Active 271397 004 Problem Prediabetes R73.03 Active 079046952 Problem Melanocytic nevi of left upper limb, including shoulder D22.62 Active 104711427 Problem Melanocytic nevi of right lower limb, including hip D22.71 Active 480681655 Problem Gastroesophageal reflux disease without esophagitis K21.9 Active 009513448 Problem BMI 30.0-30.9,adult Z68.30 Active 000711508 Problem Other chronic pain G89.29 Active 68399289 Problem Essential hypertension I10 Active 93200697 Problem Abdominal bloating R14.0 Active 896788384 Problem Diverticulosis K57.90 Active 450705467 Problem Melanocytic nevi of left lower limb, including hip D22.72 Active 934720658 Problem Decreased hearing of both ears H91.93 Active 1 10077834 Problem Melanocytic nevi of right upper limb, including shoulder D22.61 Active 524611921 Problem Melanocytic nevi of trunk D22.5 Active 255001 002 Problem SK (seborrheic keratosis) L82.1 Active 758701 000 Problem Acute left-sided low back pain with left-sided sciatica M54.42 Active 508299488 Problem Obstructive sleep apnea syndrome G47.33 Active 26097060 Problem Sciatica of left side M54.32 Active 07422113 Problem Balance problem R26.89 Active 395557780 Problem Vitamin D deficiency E55.9 Active 37011088 Problem Family history of skin cancer Z80.8 Active 42 3337156 Problem Melanocytic nevi of face D22.30 Active 9160350 04 Problem Lentigines L81.4 Active 616111009 Problem Oden angioma D18.01 Active 7524451 ALLERGIES No Known Allergies ENCOUNTERS from 1945 to 2020-04-18 Encounter Location Date Provider Diagnosis [address] [address] Mar, Valeria Servage IMMUNIZATIONS Vaccine Route Administration Date [...] Education Language: Question Answer Notes Languages spoken: Romansh Evangelical: Question Answer Notes Evangelical 21 Pentecostal No yazidism beliefs that would impact health care. Sexual [...] Notes Start Da te End Date Status Vitamin D3 Super Strength 2000 UNIT 1 tablet Orally Once a day Active Multivitamin Adults 50+ - 1 tab Orally Daily Active Co Q 10 100 MG 1 capsule with a meal Orally Once a day Active Lutein 10 MG 1 tablet with a meal Orally Once a day Active Fluticasone Propionate 50 MCG/ACT 2 sprays in each nos tril Nasally Once a day for 90 day(s) Jul, Active Vitamin A 5000 UNIT Orally Activ e Lisinopril 5 MG 2 Orally Once a day for 90 days Active Vitamin E 400 UNIT 1 capsule Orally Once a day Active Glucosamine Chond Double Str - 1 tab Orally Daily Active Tramadol HCl 50 MG 1 tablet as needed Orally TID prn for 5 days Feb, Active Gemfibrozil 600 MG 1 tablet 30 minutes before m orning and evening meals Orally twice daily for 90 day(s) Active Famotidine 20 MG 1 tablet at bedtime as needed Orally Once a day for 90 days Active Lisinopril 5 MG 1 tablet Orally bid for 90 Active Robaxin 500 MG 1-2 tablets Orally Qhs for 5 days Feb, 2 020 Active Acetaminophen Extra Strength 500 MG 1 tablet as needed Orally twice a day Active Magnesium 65 MG 1 tablet Orally Once a day Active Voltaren 1 % 1 gram to lower back and lower leg Trans dermal Q6 hours for 7 days Feb, Active [place] 3 1200 MG 1 capsule Orally Once a day Active PROCEDURES No Information RESULTS No Results REASON FOR VISIT swollen feet and ankles MEDICAL (GENERAL) HISTORY Type Description Date Medical [...] Medication Name Sig Start Date Stop Date Robaxin 500 MG 1-2 tablets Orally Qhs for 5 days Feb, Voltaren 1 % 1 gram to lower back and lower leg Trans dermal Q6 hours for 7 days Feb, Tramadol HCl 50 MG 1 tablet as needed Orally TID prn for 5 days Feb, Next Appt Details Provider Name:Valeria Deng, 08:00:00 AM, [address] [place], [address], Insurance Providers Payer Name Payer Address Payer Phone Insured Name Patient Relati onship to Insured Coverage Start Date Coverage End Date [facility] [address] [address] [facility] [address] [phone] KINSEY URIBE
--- OUTSIDE RECORDS SUMMARY | 2020-06-16 09:06 | CCD ---
Author Author [facility] Organization [facility] Address Unknown Phone Unavailable Care Team Providers Care Cap Sizer Name Role Phone Valeria Deng Unavailable PROBLEMS Type Condition ICD9-CM Code [id number] Code Onset Dates Condition S tatus SNOMED Code Notes Problem Tremor of left hand R25.1 Active 824553164 Problem Pure hypercholesterolemia E78.00 Active 297823 004 Problem Prediabetes R73.03 Active 834835146 Problem Melanocytic nevi of left upper limb, including shoulder D22.62 Active 601802345 Problem Melanocytic nevi of right lower limb, including hip D22.71 Active 857167354 Problem Gastroesophageal reflux disease without esophagitis K21.9 Active 342447467 Problem BMI 30.0-30.9,adult Z68.30 Active 426912999 Problem Other chronic pain G89.29 Active 57995945 Problem Essential hypertension I10 Active 01132018 Problem Abdominal bloating R14.0 Active 866823241 Problem Diverticulosis K57.90 Active 515038583 Problem Melanocytic nevi of left lower limb, including hip D22.72 Active 918693201 Problem Decreased hearing of both ears H91.93 Active 1 31109989 Problem Melanocytic nevi of right upper limb, including shoulder D22.61 Active 910640575 Problem Melanocytic nevi of trunk D22.5 Active 351251 002 Problem SK (seborrheic keratosis) L82.1 Active 279165 000 Problem Acute left-sided low back pain with left-sided sciatica M54.42 Active 639465725 Problem Obstructive sleep apnea syndrome G47.33 Active 38090445 Problem Sciatica of left side M54.32 Active 30529290 Problem Balance problem R26.89 Active 568670356 Problem Vitamin D deficiency E55.9 Active 31099989 Problem Family history of skin cancer Z80.8 Active 42 1439962 Problem Melanocytic nevi of face D22.30 Active 3232421 04 Problem Lentigines L81.4 Active 728591572 Problem Oden angioma D18.01 Active 1207040 ALLERGIES No Known Allergies ENCOUNTERS from 1945 to 2020-05-05 Encounter Location Date Provider Diagnosis [address] [address] Apr, Valeria Vieraage Positive FIT (fecal immunochemical test) R19.5 and Gastroesophageal reflux disease without esophagitis K21.9 IMMUNIZATIONS Vaccine Route Administration Date Status Influenza [...] Education Language: Question Answer Notes Languages spoken: Sami Orthodoxy: Question Answer Notes Orthodoxy 21 Mormonism No confucianism beliefs that would impact health care. Sexual [...] 1 tablet Orally Once a day Active [place] 3 1200 MG 1 capsule Orally Once a day Active Vitamin E 400 UNIT 1 capsule Orally Once a day Active Co Q 10 100 MG 1 capsule with a meal Orally Once a day Active PROCEDURES No Information RESULTS No Results REASON FOR VISIT abnormal colon test MEDICAL (GENERAL) HISTORY Type Description Date Medical [...] Notes Treatment Notes Treatm ent Clinical Notes Apr, Positive FIT (fecal immunochemical test) (ICD-10 - R19.5) Her insurance company sent her stool sit test. Which she performed. Results positive, discussed with patient, willing to be sent for colonoscopy. She is also requesting an endoscopy at the same time to assess her reflux Apr, Gastroesophageal reflux dise ase without esophagitis (ICD-10 - K21.9) PLAN OF TREATMENT Medication Medication Name Sig Start Date Stop Date Gemfibrozil 600 MG 1 tablet 30 minutes before m orning and evening meals Orally twice daily for 90 Treatment Notes Assessment Notes Clinical Notes Positive FIT (fecal immunochemical test) Her insurance company sent her stool sit test. Which she performed. Results positive, discussed with patient, willing to be sent for colonoscopy. She is also requesting an endoscopy at the same time to assess her reflux Next Appt Details Provider Name:Valeria Mary Deng, 08:00:00 AM, [address] [place], [address], Insurance Providers Payer Name Payer Address Payer Phone Insured Name Patient Relati onship to Insured Coverage Start Date Coverage End Date [facility] [address] [address] [facility] [address] [phone] KINSEY URIBE
--- OUTSIDE RECORDS SUMMARY | 2020-06-16 09:06 | CCD ---
Author Author [facility] Organization [facility] Address Unknown Phone Unavailable Care Team Providers Care Bellows Filler Name Role Phone Drea Rhodes Unavailable PROBLEMS Type Condition ICD9-CM Code [id number] Code Onset Dates Condition S tatus SNOMED Code Notes Problem Tremor of left hand R25.1 Active 937617937 Problem Pure hypercholesterolemia E78.00 Active 983398 004 Problem Prediabetes R73.03 Active 817402558 Problem Melanocytic nevi of left upper limb, including shoulder D22.62 Active 899256814 Problem Melanocytic nevi of right lower limb, including hip D22.71 Active 122646671 Problem Gastroesophageal reflux disease without esophagitis K21.9 Active 642015630 Problem BMI 30.0-30.9,adult Z68.30 Active 547513809 Problem Other chronic pain G89.29 Active 34621145 Problem Essential hypertension I10 Active 83863532 Problem Abdominal bloating R14.0 Active 587325704 Problem Diverticulosis K57.90 Active 213870772 Problem Melanocytic nevi of left lower limb, including hip D22.72 Active 887631833 Problem Decreased hearing of both ears H91.93 Active 1 35276805 Problem Melanocytic nevi of right upper limb, including shoulder D22.61 Active 222479501 Problem Melanocytic nevi of trunk D22.5 Active 101987 002 Problem SK (seborrheic keratosis) L82.1 Active 693741 000 Problem Acute left-sided low back pain with left-sided sciatica M54.42 Active 947249667 Problem Obstructive sleep apnea syndrome G47.33 Active 75159355 Problem Sciatica of left side M54.32 Active 90385501 Problem Balance problem R26.89 Active 294062442 Problem Vitamin D deficiency E55.9 Active 58238489 Problem Family history of skin cancer Z80.8 Active 42 5279761 Problem Melanocytic nevi of face D22.30 Active 8200597 04 Problem Lentigines L81.4 Active 700678862 Problem Oden angioma D18.01 Active 1546915 ALLERGIES No Known Allergies ENCOUNTERS from 1945 to 2020-04-21 Encounter Location Date Provider Diagnosis [address] [address] Mar, Drea Rhodes IMMUNIZATIONS Vaccine Route Administration Date Status Influenza [...] Education Language: Question Answer Notes Languages spoken: Kinyarwanda Buddhist: Question Answer Notes Buddhist 21 Voodoo No pentecostalism beliefs that would impact health care. Sexual [...] Notes Start Da te End Date Status Lutein 10 MG 1 tablet with a meal Orally Once a day Active Co Q 10 100 MG 1 capsule with a meal Orally Once a day Active Lisinopril 5 MG 1 tablet Orally bid for 90 Active Tramadol HCl 50 MG 1 tablet as needed Orally TID prn for 5 days Feb, Active Acetaminophen Extra Strength 500 MG 1 tablet as needed Orally twice a day Active Voltaren 1 % 1 gram to lower back and lower leg Trans dermal Q6 hours for 7 days Feb, Active Gemfibrozil 600 MG 1 tablet 30 minutes before m orning and evening meals Orally twice daily for 90 day(s) Active Magnesium 65 MG 1 tablet Orally Once a day Active Famotidine 20 MG 1 tablet at bedtime as needed Orally Once a day for 90 days Active Robaxin 500 MG 1-2 tablets Orally Qhs for 5 days Feb, 020 Active Vitamin A 5000 UNIT Orally Activ e Glucosamine Chond Double Str - 1 tab Orally Daily Active Vitamin D3 Super Strength 2000 UNIT 1 tablet Orally Once a day Active Vitamin E 400 UNIT 1 capsule Orally Once a day Active Multivitamin Adults 50+ - 1 tab Orally Daily Active [place] 3 1200 MG 1 capsule Orally Once a day Active Lisinopril 5 MG 2 Orally Once a day for 90 days Not-Taking Fluticasone Propionate 50 MCG/ACT 2 sprays in each nos tril Nasally Once a day for 90 day(s) Jul, Not-Taking PROCEDURES No Information RESULTS No Results REASON FOR VISIT left eye red and swollen MEDICAL (GENERAL) HISTORY Type Description Date Medical [...] Information ASSESSMENTS No Information PLAN OF TREATMENT Next Appt Details Provider Name:Valeria Hernandez Sowmya, 08:00:00 AM, [address] [place], [address], Insurance Providers Payer Name Payer Address Payer Phone Insured Name Patient Relati onship to Insured Coverage Start Date Coverage End Date [facility] [address] [address] [facility] [address] [phone] KINSEY URIBE self
--- OUTSIDE RECORDS SUMMARY | 2020-06-16 09:06 | CCD ---
Author Author [facility] Organization [facility] Address Unknown Phone Unavailable Care Team Providers Care Cryptographer Name Role Phone Valeria Deng Unavailable PROBLEMS Type Condition ICD9-CM Code QNO25-TO Code Onset Dates Condition S tatus SNOMED Code Notes Problem Tremor of left hand R25.1 Active 406608005 Problem Pure hypercholesterolemia E78.00 Active 562037 004 Problem Prediabetes R73.03 Active 761676142 Problem Melanocytic nevi of left upper limb, including shoulder D22.62 Active 550973583 Problem Melanocytic nevi of right lower limb, including hip D22.71 Active 408087162 Problem Gastroesophageal reflux disease without esophagitis K21.9 Active 816758658 Problem BMI 30.0-30.9,adult Z68.30 Active 914102949 Problem Other chronic pain G89.29 Active 42324214 Problem Essential hypertension I10 Active 89446619 Problem Abdominal bloating R14.0 Active 293856325 Problem Diverticulosis K57.90 Active 068759187 Problem Melanocytic nevi of left lower limb, including hip D22.72 Active 902442516 Problem Decreased hearing of both ears H91.93 Active 1 95355037 Problem Melanocytic nevi of right upper limb, including shoulder D22.61 Active 404410025 Problem Melanocytic nevi of trunk D22.5 Active 460298 002 Problem SK (seborrheic keratosis) L82.1 Active 914087 000 Problem Acute left-sided low back pain with left-sided sciatica M54.42 Active 857020847 Problem Obstructive sleep apnea syndrome G47.33 Active 93710750 Problem Sciatica of left side M54.32 Active 95551545 Problem Balance problem R26.89 Active 450914529 Problem Vitamin D deficiency E55.9 Active 50716651 Problem Family history of skin cancer Z80.8 Active 42 2934098 Problem Melanocytic nevi of face D22.30 Active 8499786 04 Problem Lentigines L81.4 Active 408069590 Problem Oden angioma D18.01 Active 9983464 ALLERGIES No Known Allergies ENCOUNTERS from 1945 to 2020-03-29 Encounter Location Date Provider Diagnosis [address] [address] Mar, Valeria Aylinage Sciatica of left side M54.32 IMMUNIZATIONS Vaccine Route Administration Date Status Influenza [...] Education Language: Question Answer Notes Languages spoken: Amharic Congregation: Question Answer Notes Congregation 21 Yazdanism No yarsanism beliefs that would impact health care. Sexual [...] Qhs for 5 days Feb, 020 Active Acetaminophen Extra Strength 500 MG 1 tablet as needed Orally twice a day Active Magnesium 65 MG 1 tablet Orally Once a day Active Voltaren 1 % 1 gram to lower back and lower leg Trans dermal Q6 hours for 7 days Feb, Active [place] 3 1200 MG 1 capsule Orally Once a day Active PROCEDURES No Information RESULTS No Results REASON FOR VISIT [facility] Therapy [facility] MEDICAL (GENERAL) HISTORY Type Description Date Medical [...] Notes Treatment Notes Treatm ent Clinical Notes Mar, Sciatica of left side (ICD-10 - M54.32) PLAN OF TREATMENT Medication Medication Name Sig Start Date Stop Date Robaxin 500 MG 1-2 tablets Orally Qhs for 5 days Feb, Voltaren 1 % 1 gram to lower back and lower leg Trans dermal Q6 hours for 7 days Feb, Tramadol HCl 50 MG 1 tablet as needed Orally TID prn for 5 days Feb, Insurance Providers Payer Name Payer Address Payer Phone Insured Name Patient Relati onship to Insured Coverage Start Date Coverage End Date [facility] [address] [address] [facility] [address] [phone] KINSEY URIBE
--- OUTSIDE RECORDS SUMMARY | 2020-06-16 09:06 | CCD ---
Author Author [facility] Organization [facility] Address Unknown Phone Unavailable Care Team Providers Care Mds Rn Name Role Phone Valeria Deng Unavailable PROBLEMS Type Condition ICD9-CM Code EPC21-HG Code Onset Dates Condition S tatus SNOMED Code Notes Problem Tremor of left hand R25.1 Active 180911169 Problem Pure hypercholesterolemia E78.00 Active 750811 004 Problem Prediabetes R73.03 Active 032198913 Problem Melanocytic nevi of left upper limb, including shoulder D22.62 Active 541056170 Problem Melanocytic nevi of right lower limb, including hip D22.71 Active 395034639 Problem Gastroesophageal reflux disease without esophagitis K21.9 Active 929330483 Problem BMI 30.0-30.9,adult Z68.30 Active 575398954 Problem Other chronic pain G89.29 Active 50009488 Problem Essential hypertension I10 Active 38785827 Problem Abdominal bloating R14.0 Active 103061296 Problem Diverticulosis K57.90 Active 248059433 Problem Melanocytic nevi of left lower limb, including hip D22.72 Active 824542635 Problem Decreased hearing of both ears H91.93 Active 1 36462617 Problem Melanocytic nevi of right upper limb, including shoulder D22.61 Active 998547691 Problem Melanocytic nevi of trunk D22.5 Active 854546 002 Problem SK (seborrheic keratosis) L82.1 Active 207687 000 Problem Acute left-sided low back pain with left-sided sciatica M54.42 Active 304136748 Problem Obstructive sleep apnea syndrome G47.33 Active 94068036 Problem Sciatica of left side M54.32 Active 25528085 Problem Balance problem R26.89 Active 866680271 Problem Vitamin D deficiency E55.9 Active 59401861 Problem Family history of skin cancer Z80.8 Active 42 7689060 Problem Melanocytic nevi of face D22.30 Active 1213634 04 Problem Lentigines L81.4 Active 109559892 Problem Oden angioma D18.01 Active 1695794 ALLERGIES No Known Allergies ENCOUNTERS from 1945 to 2020-04-20 Encounter Location Date Provider Diagnosis [address] [address] Mar, Valeria Servage Sciatica of left side M54.32 ; Vertigo R 42 ; Leg edema R60.0 and Decreased hearing of both ears H91.93 IMMUNIZATIONS Vaccine Route Administration Date Status Influenza [...] Education Language: Question Answer Notes Languages spoken: Persian Pentecostal: Question Answer Notes Pentecostal 21 Sabianism No protestant beliefs that would impact health care. Sexual [...] FOR REFERRAL No Information VITAL SIGNS Weight 157 lbs Mar, Height 60 in Mar, BMI 30.66 kg/m2 Mar, Heart Rate 80 /min Mar, Respiratory Rate 20 /min Mar, Temperature 96.7 degrees Fahrenheit Mar, Oximetry 95 Mar, Blood pressure systolic 122 mm Hg Mar, Blood pressure diastolic 70 mm Hg Mar, MEDICATIONS Medication SIG (Take, Route, Frequency, Duration) [...] 50+ - 1 tab Orally Daily Active [place] 3 1200 MG 1 capsule Orally Once a day Active Lisinopril 5 MG 2 Orally Once a day for 90 days Not-Taking Fluticasone Propionate 50 MCG/ACT 2 sprays in each nos tril Nasally Once a day for 90 day(s) Jul, Not-Taking PROCEDURES No Information RESULTS No Results REASON FOR VISIT lower extremity edema MEDICAL (GENERAL) HISTORY Type Description Date Medical [...] not need to have it that long Mar, Vertigo (ICD-10 - R42) Requesting referral for exercises once again to help with her vertigo Mar, Leg edema (ICD-10 - R60.0) Discussed dependent edema, especially from sitting all day with Syeda. Suggested that she wear compression knee-high's daily, suggested that she go to the uniform shop and purchase a couple pair patient states she has them at home. Discussed to elevate her legs whenever sitting down, the fluid will pool in her lower extremities whenever she is sitting Also explained is a good sign that the edema is gone in the morning when she wakes up Mar, Decreased hearing of both ears (ICD-10 - H91.93) Requesting referral to [facility] for evaluation and treatment of decreased hearing, Mar, Other annual medicar e wellness in june suggested PLAN OF TREATMENT Treatment Notes Assessment Notes Clinical Notes Sciatica of left side Sciatica has impro jose, states she attended physical therapy 3 times and they gave her exercises to perform at homePhysical therapy note reviewed they recommended 2-3 times a week for 6-8 weeks. Patient felt that she did not need to have it that long Vertigo Requesting referral for exercises once again to help with her vertigo Leg edema Discussed dependent edema, especially from sitting all day with Syeda.Suggested that she wear compression knee-high's daily, suggested that she go to the uniform shop and purchase a couple pair patient states she has them at home. Discussed to elevate her legs whenever sitting down, the fluid will pool in her lower extremities whenever she is sittingAlso explained is a good sign that the edema is gone in the morning when she wakes up Decreased hearing of both ears Therese acosta referral to [facility] for evaluation and treatment of decreased hearing, Next Appt Details Valeria june 2019 medicare wellness Hallie son: Provider Name:Valeria Deng, 08:00:00 AM, [address] [place], [address], Insurance Providers Payer Name Payer Address Payer Phone Insured Name Patient Relati onship to Insured Coverage Start Date Coverage End Date [facility] [employer] [facility] [address] [address] [facility] [phone] KINSEY URIBE self
--- OUTSIDE RECORDS SUMMARY | 2020-06-16 09:06 | CCD ---
Author Author [facility] Organization [facility] Address Unknown Phone Unavailable Care Team Providers Care Lens Marker Name Role Phone Valeria Deng Unavailable PROBLEMS Type Condition ICD9-CM Code SFC08-KF Code Onset Dates Condition S tatus W/U Status Risk SNOMED Code Notes Problem Tremor of left hand R25.1 Active confirmed 940864811 Problem Pure hypercholesterolemia E78.00 Active confirmed 245356896 Problem Prediabetes R73.03 Active confirmed 52077711 2 Problem Melanocytic nevi of left upper limb, including shoulder D22.62 Active confirmed 492182685 Problem Melanocytic nevi of right lower limb, including hip D22.71 Active confirmed 859456119 Problem Gastroesophageal reflux disease without esophagitis K21.9 Active confirmed 574621989 Problem BMI 30.0-30.9,adult Z68.30 Active confirmed 222870379 Problem Other chronic pain G89.29 Active confirmed 8 6854479 Problem Essential hypertension I10 Active confirmed 81451470 Problem Abdominal bloating R14.0 Active confirmed 1 17914402 Problem Diverticulosis K57.90 Active confirmed 35241 1000 Problem Melanocytic nevi of left lower limb, including hip D22.72 Active confirmed 993412062 Problem Decreased hearing of both ears H91.93 Active confir med 632264222 Problem Melanocytic nevi of right upper limb, including shoulder D22.61 Active confirmed 559958560 Problem Melanocytic nevi of trunk D22.5 Active confirmed 594555190 Problem SK (seborrheic keratosis) L82.1 Active confirmed 340907011 Problem Acute left-sided low back pain with left-sided sciatica M54.42 Active confirmed 457764111 Problem Obstructive sleep apnea syndrome G47.33 Active conf irmed 23969590 Problem Sciatica of left side M54.32 Active confirmed 60125285 Problem Balance problem R26.89 Active confirmed 3876 70923 Problem Vitamin D deficiency E55.9 Active confirmed 37984101 Problem Family history of skin cancer Z80.8 Active confirm ed 320826447 Problem Melanocytic nevi of face D22.30 Active confirmed 038087280 Problem Lentigines L81.4 Active confirmed 873321968 Problem Oden angioma D18.01 Active confirmed 01089 01 ALLERGIES No Known Allergies ENCOUNTERS from 1945 to 2020-05-27 Encounter Location Date Provider Diagnosis [address] [address] 03 May, 2020 Valeria Servage Pure hypercholesterolemia E78.00 ; Essen tial hypertension I10 ; Prediabetes R73.03 and Vitamin D deficiency E55.9 IMMUNIZATIONS Vaccine Route Administration Date Status Influenza [...] Education Language: Question Answer Notes Languages spoken: Greek Moravian: Question Answer Notes Moravian 21 Jewish No lutheran beliefs that would impact health care. Sexual [...] 1 capsule Orally Once a day Active [place] 3 1200 MG 1 capsule Orally Once a day Active Lisinopril 5 MG 1 tablet Orally bid for 90 Active Fluticasone Propionate 50 MCG/ACT 2 sprays in each nos tril Nasally Once a day for 90 day(s) Jul, Not-Taking PROCEDURES No Information RESULTS No Results REASON FOR VISIT script for labs MEDICAL (GENERAL) HISTORY Type Description Date Medical [...] Treatment Notes Treatm ent Clinical Notes May, Pure hypercholesterolemia (ICD-10 - E78.00) May, Essential hypertension (ICD-10 - I10) May, Prediabetes (ICD-10 - R73.03) May, Vitamin D deficiency (ICD-10 - E55.9) PLAN OF TREATMENT Treatment Notes Test Name Order Date HEMOGLOBIN A1c 2020-05-25 VITAMIN D 25-HYDROXY 2020-05-25 Comprehensive Metabolic Profile (CMP) 2020-05-25 LIPID PANEL (CARDIAC RISK) 2020-05-25 Next Appt Details Provider Name:Valeria Deng, 08:00:00 AM, [address] [place], [address], Insurance Providers Payer Name Payer Address Payer Phone Insured Name Patient Relati onship to Insured Coverage Start Date Coverage End Date [facility] [address] [address] [facility] [address] KINSEY URIBE self
--- OUTSIDE RECORDS SUMMARY | 2020-06-16 09:06 | CCD ---
Author Author [facility] Organization [facility] Address Unknown Phone Unavailable Care Team Providers Care Cat Dog Or Other Pet Groomer Name Role Phone Valeria Deng Unavailable PROBLEMS Type Condition ICD9-CM Code YWS01-LL Code Onset Dates Condition S tatus SNOMED Code Notes Problem Tremor of left hand R25.1 Active 262935320 Problem Pure hypercholesterolemia E78.00 Active 722056 004 Problem Prediabetes R73.03 Active 171375192 Problem Melanocytic nevi of left upper limb, including shoulder D22.62 Active 208410301 Problem Melanocytic nevi of right lower limb, including hip D22.71 Active 311650918 Problem Gastroesophageal reflux disease without esophagitis K21.9 Active 802913408 Problem BMI 30.0-30.9,adult Z68.30 Active 111958711 Problem Other chronic pain G89.29 Active 33863303 Problem Essential hypertension I10 Active 89870444 Problem Abdominal bloating R14.0 Active 392069398 Problem Diverticulosis K57.90 Active 183539144 Problem Melanocytic nevi of left lower limb, including hip D22.72 Active 292414598 Problem Decreased hearing of both ears H91.93 Active 1 75686905 Problem Melanocytic nevi of right upper limb, including shoulder D22.61 Active 842778900 Problem Melanocytic nevi of trunk D22.5 Active 637867 002 Problem SK (seborrheic keratosis) L82.1 Active 479778 000 Problem Acute left-sided low back pain with left-sided sciatica M54.42 Active 674767669 Problem Obstructive sleep apnea syndrome G47.33 Active 68807414 Problem Sciatica of left side M54.32 Active 02217575 Problem Balance problem R26.89 Active 392701518 Problem Vitamin D deficiency E55.9 Active 71004093 Problem Family history of skin cancer Z80.8 Active 42 9662429 Problem Melanocytic nevi of face D22.30 Active 6940629 04 Problem Lentigines L81.4 Active 794414221 Problem Oden angioma D18.01 Active 2785765 ALLERGIES No Known Allergies ENCOUNTERS from 1945 to 2020-05-10 Encounter Location Date Provider Diagnosis [address] [address] Feb, Valeria Servage IMMUNIZATIONS Vaccine Route Administration Date [...] Education Language: Question Answer Notes Languages spoken: Bengali Gnosticism: Question Answer Notes Gnosticism 21 Amish No jew beliefs that would impact health care. Sexual [...] 1 tablet Orally Once a day Active [place] 3 1200 MG 1 capsule Orally Once a day Active Vitamin E 400 UNIT 1 capsule Orally Once a day Active Co Q 10 100 MG 1 capsule with a meal Orally Once a day Active PROCEDURES No Information RESULTS No Results REASON FOR VISIT transportation authorization MEDICAL (GENERAL) HISTORY Type Description Date Medical [...] Details Provider Name:Valeria Deng, 08:00:00 AM, [address] [place], [address], Insurance Providers Payer Name Payer Address Payer Phone Insured Name Patient Relati onship to Insured Coverage Start Date Coverage End Date [facility] [employer] [facility] [address] [address] [facility] [phone] KINSEY URIBE self
--- OUTSIDE RECORDS SUMMARY | 2020-06-16 09:06 | CCD | Continuity of Care Document ---
Author Author Lucy KING Organization Unknown Address [address] [place] [address], [address] [place] [address] Phone [phone] Care Team Providers Care Substance Abuse Services Director Name Role Phone Swati Guzman M.D. AUTM [phone] Valeria Deng R.N. AUTM [phone] AUTM Unavailable Problems Active Problems Provider Date [...] Daily Unknown Coq10 100mg Capsules Daily Unknown Oxford-3 Krill Oil 300mg Capsules Daily Unknown Niacinamide [...] lb BMI (Body Mass Index) 30.1 kg/m2 Lake Body Weight 100 lb Weight 69.854 kg BSA (Body Surface Area) 1.67 m2 12/04/2018 9:18am Height 60 inches 5'0" Weight 150.00 lb BMI (Body Mass Index) 29.3 kg/m2 [place] Body Weight 100 lb Weight 68.040 kg BSA (Body Surface Area) 1.65 m2 Results Description No Information Available Procedures Description No Information Available Medical Devices Description No Information Available Encounters Description No Information Available Assessments Date Code Description Provider 05/19/2020 K21.9 Gastro-esophageal reflux disease without esophagitis ZACH Slater 05/19/2020 R19.5 Other fecal abnormalities Saraiiss ZACH Schreiber 05/19/2020 K62.5 Hemorrhage of anus and rectum Me shantell ZACH Santillan 05/19/2020 R19.8 Other specified symp toms and signs involving the digestive system and abdomen ZACH Slater Plan of Treatment 05/19/2020 - ZACH Slater* K21.9 Gastro-esophageal reflux [...] Referral Status Appt Date Mal Morrison M.D. colo screening and requesting EGD Sc heduled 04/26/[address] [place] [address], [address] [place] [id number] [phone]
--- OUTSIDE RECORDS SUMMARY | 2020-06-16 09:06 | CCD ---
Author Author [facility] Organization [facility] Address Unknown Phone Unavailable Care Team Providers Care Renewable Energy Technician Name Role Phone Valeria Deng Unavailable PROBLEMS Type Condition ICD9-CM Code ZSN53-RG Code Onset Dates Condition S tatus SNOMED Code Notes Problem Tremor of left hand R25.1 Active 057178497 Problem Pure hypercholesterolemia E78.00 Active 316237 004 Problem Prediabetes R73.03 Active 504847020 Problem Melanocytic nevi of left upper limb, including shoulder D22.62 Active 594633010 Problem Melanocytic nevi of right lower limb, including hip D22.71 Active 246683057 Problem Gastroesophageal reflux disease without esophagitis K21.9 Active 676556740 Problem BMI 30.0-30.9,adult Z68.30 Active 887867040 Problem Other chronic pain G89.29 Active 76933175 Problem Essential hypertension I10 Active 14572817 Problem Abdominal bloating R14.0 Active 260549791 Problem Diverticulosis K57.90 Active 179730210 Problem Melanocytic nevi of left lower limb, including hip D22.72 Active 155512020 Problem Decreased hearing of both ears H91.93 Active 1 22178915 Problem Melanocytic nevi of right upper limb, including shoulder D22.61 Active 125938209 Problem Melanocytic nevi of trunk D22.5 Active 946349 002 Problem SK (seborrheic keratosis) L82.1 Active 308268 000 Problem Acute left-sided low back pain with left-sided sciatica M54.42 Active 520441412 Problem Obstructive sleep apnea syndrome G47.33 Active 93182472 Problem Sciatica of left side M54.32 Active 65986300 Problem Balance problem R26.89 Active 824947719 Problem Vitamin D deficiency E55.9 Active 18398696 Problem Family history of skin cancer Z80.8 Active 42 5085368 Problem Melanocytic nevi of face D22.30 Active 2891190 04 Problem Lentigines L81.4 Active 294189242 Problem Oden angioma D18.01 Active 9759928 ALLERGIES No Known Allergies ENCOUNTERS from 1945 to 2020-05-11 Encounter Location Date Provider Diagnosis [address] [address] Apr, Valeria Servage IMMUNIZATIONS Vaccine Route Administration [...] Education Language: Question Answer Notes Languages spoken: Luxembourgish Jehovah'S Witness: Question Answer Notes Jehovah'S Witness 21 Congregation No restorationism beliefs that would impact health care. Sexual [...] 1 tablet Orally Once a day Active [place] 3 1200 MG 1 capsule Orally Once a day Active Vitamin E 400 UNIT 1 capsule Orally Once a day Active Co Q 10 100 MG 1 capsule with a meal Orally Once a day Active PROCEDURES No Information RESULTS No Results REASON FOR VISIT GI appt MEDICAL (GENERAL) HISTORY Type Description Date Medical [...] Details Provider Name:Valeria Deng, 08:00:00 AM, [address] [place], [address], Insurance Providers Payer Name Payer Address Payer Phone Insured Name Patient Relati onship to Insured Coverage Start Date Coverage End Date [facility] [employer] [facility] [address] [address] [facility] [address] KINSEY URIBE self
--- OUTSIDE RECORDS SUMMARY | 2020-06-16 09:07 | CCD ---
Author Author [facility] Organization [facility] Address Unknown Phone Unavailable Care Team Providers Care Carpet Inspector Name Role Phone Valeria Deng Unavailable PROBLEMS Type Condition ICD9-CM Code FKX24-SH Code Onset Dates Condition S tatus SNOMED Code Notes Problem Tremor of left hand R25.1 Active 583274026 Problem Pure hypercholesterolemia E78.00 Active 877532 004 Problem Prediabetes R73.03 Active 199208321 Problem Melanocytic nevi of left upper limb, including shoulder D22.62 Active 384075499 Problem Melanocytic nevi of right lower limb, including hip D22.71 Active 459140818 Problem Gastroesophageal reflux disease without esophagitis K21.9 Active 196718043 Problem BMI 30.0-30.9,adult Z68.30 Active 550905412 Problem Other chronic pain G89.29 Active 17834770 Problem Essential hypertension I10 Active 17526840 Problem Abdominal bloating R14.0 Active 428694237 Problem Diverticulosis K57.90 Active 847271314 Problem Melanocytic nevi of left lower limb, including hip D22.72 Active 415339170 Problem Decreased hearing of both ears H91.93 Active 1 24936670 Problem Melanocytic nevi of right upper limb, including shoulder D22.61 Active 674251747 Problem Melanocytic nevi of trunk D22.5 Active 218828 002 Problem SK (seborrheic keratosis) L82.1 Active 267968 000 Problem Acute left-sided low back pain with left-sided sciatica M54.42 Active 649034063 Problem Obstructive sleep apnea syndrome G47.33 Active 47186521 Problem Sciatica of left side M54.32 Active 15056496 Problem Balance problem R26.89 Active 494921764 Problem Vitamin D deficiency E55.9 Active 59287972 Problem Family history of skin cancer Z80.8 Active 42 6947540 Problem Melanocytic nevi of face D22.30 Active 3566397 04 Problem Lentigines L81.4 Active 694546404 Problem Oden angioma D18.01 Active 9992717 ALLERGIES No Known Allergies ENCOUNTERS from 1945 to 2020-03-29 Encounter Location Date Provider Diagnosis [address] [address] Feb, Valeria Servage IMMUNIZATIONS Vaccine Route Administration [...] Education Language: Question Answer Notes Languages spoken: Azeri Mormon: Question Answer Notes Mormon 21 Synagogue No mosque beliefs that would impact health care. Sexual [...] Q6 hours for 7 days Feb, Active [place] 3 1200 MG 1 capsule Orally Once a day Active PROCEDURES No Information RESULTS No Results REASON FOR VISIT left sciatica pain MEDICAL (GENERAL) HISTORY Type Description Date Medical [...] Insured Coverage Start Date Coverage End Date [facility] [employer] [facility] [address] [address] [facility] [address] KINSEY URIBE
--- OUTSIDE RECORDS SUMMARY | 2020-06-16 09:07 | CCD ---
Author Author [facility] Organization [facility] Address Unknown Phone Unavailable Care Team Providers Care Rn Forensic Name Role Phone Valeria Deng Unavailable PROBLEMS Type Condition ICD9-CM Code [id number] Code Onset Dates Condition S tatus SNOMED Code Notes Problem BMI 30.0-30.9,adult Z68.30 Active 208799104 Problem Obstructive sleep apnea syndrome G47.33 Active 59183135 Problem Essential hypertension I10 Active 72212247 Problem Gastroesophageal reflux disease without esophagitis K21.9 Active 306421178 Problem Abdominal bloating R14.0 Active 182136774 Problem Other chronic pain G89.29 Active 42399900 Problem Decreased hearing of both ears H91.93 Active 1 37455955 Problem Prediabetes R73.03 Active 005120168 Problem Diverticulosis K57.90 Active 430117441 Problem Tremor of left hand R25.1 Active 376284229 Problem Melanocytic nevi of left lower limb, including hip D22.72 Active 196703953 Problem Melanocytic nevi of right lower limb, including hip D22.71 Active 095466342 Problem Melanocytic nevi of left upper limb, including shoulder D22.62 Active 853291576 Problem Lentigines L81.4 Active 542405672 Problem SK (seborrheic keratosis) L82.1 Active 369901 000 Problem Balance problem R26.89 Active 581191002 Problem Acute left-sided low back pain with left-sided sciatica M54.42 Active 005325706 Problem Oden angioma D18.01 Active 2460518 Problem Pure hypercholesterolemia E78.00 Active 920177 004 Problem Vitamin D deficiency E55.9 Active 54278890 Problem Melanocytic nevi of right upper limb, including shoulder D22.61 Active 381183106 Problem Melanocytic nevi of trunk D22.5 Active 794655 002 Problem Family history of skin cancer Z80.8 Active 42 5049182 Problem Melanocytic nevi of face D22.30 Active 2514173 04 ALLERGIES No Known Allergies ENCOUNTERS from 1945 to 2020-03-26 Encounter Location Date Provider Diagnosis [address] [address] Mar, Valeria Vieraage IMMUNIZATIONS Vaccine Route Administration Date Status Influenza [...] Education Language: Question Answer Notes Languages spoken: [place] Anabaptism: Question Answer Notes Anabaptism 21 Sabianist No catholic beliefs that would impact health care. Sexual [...] Q6 hours for 7 days Feb, Active Theresa 3 1200 MG 1 capsule Orally Once a day Active PROCEDURES No Information RESULTS No Results REASON FOR VISIT unsafe at home MEDICAL (GENERAL) HISTORY Type Description Date Medical [...] Insured Coverage Start Date Coverage End Date [facility] [employer] [facility] [address] [address] [facility] [id number] [employer]
--- OUTSIDE RECORDS SUMMARY | 2020-06-16 09:07 | CCD ---
Author Author [facility] Organization [facility] Address Unknown Phone Unavailable Care Team Providers Care Tie Buyer Name Role Phone Edward Araujo MD Unavailable Unavailable Edward Araujo MD Unavailable Unavailable Edward Araujo MD Unavailable Unavailable Edward Araujo MD Unavailable Unavailable Edward Araujo MD Unavailable Unavailable Edward Araujo MD Unavailable Unavailable Edward Araujo MD Unavailable Unavailable Edward Araujo MD Unavailable Unavailable Edward Araujo MD Unavailable Unavailable Edward Araujo MD Unavailable Unavailable Edward Araujo MD Unavailable Unavailable Edward Araujo MD Unavailable Unavailable Edward Araujo MD Unavailable Unavailable Edward Araujo MD Unavailable Unavailable Edward Araujo MD Unavailable Unavailable Edward Araujo MD Unavailable Unavailable Edward Araujo MD Unavailable Unavailable Edward Araujo MD Unavailable Unavailable Edward Araujo MD Unavailable Unavailable Edward Araujo MD Unavailable Unavailable Edward Araujo MD Unavailable Unavailable Edward Araujo MD Unavailable Unavailable Edward Araujo MD Unavailable Unavailable Edward Araujo MD Unavailable Unavailable Edward Araujo MD Unavailable Unavailable Edward Araujo MD Unavailable Unavailable Edward Araujo MD Unavailable Unavailable Edward Araujo MD Unavailable Unavailable Edward Araujo MD Unavailable Unavailable Edward Araujo MD Unavailable Unavailable Edward Araujo MD Unavailable Unavailable Edward Araujo MD Unavailable Unavailable Edward Araujo MD Unavailable Unavailable Edward Araujo MD Unavailable Unavailable Edward Araujo MD Unavailable Unavailable Edward Araujo MD Unavailable Unavailable Edward Araujo MD Unavailable Unavailable Edward Araujo MD Unavailable Unavailable Edward Araujo MD Unavailable Unavailable Edward Araujo MD Unavailable Unavailable Edward Araujo MD Unavailable Unavailable Edward Araujo MD Unavailable Unavailable Edward Araujo MD Unavailable Unavailable Edward Araujo MD Unavailable Unavailable Edward Araujo MD Unavailable Unavailable Edward Araujo MD Unavailable Unavailable Edward Araujo MD Unavailable Unavailable Edward Araujo MD Unavailable Unavailable Edward Araujo MD Unavailable Unavailable Edward Araujo MD Unavailable Unavailable Edward Araujo MD Unavailable Unavailable Edward Araujo MD Unavailable Unavailable Edward Araujo MD Unavailable Unavailable Edward Araujo MD Unavailable Unavailable Edward Araujo MD Unavailable Unavailable Edward Araujo MD Unavailable Unavailable Edward Araujo MD Unavailable Unavailable Edward Araujo MD Unavailable Unavailable Edward Araujo MD Unavailable Unavailable Edward Araujo MD Unavailable Unavailable Edward Araujo MD Unavailable Unavailable Edward Araujo MD Unavailable Unavailable Edward Araujo MD Unavailable Unavailable Edward Araujo MD Unavailable Unavailable Edward Araujo MD Unavailable Unavailable Edward Araujo MD Unavailable Unavailable Edward Araujo MD Unavailable Unavailable Edward Araujo MD Unavailable Unavailable Edward Araujo MD Unavailable Unavailable Edward Araujo MD Unavailable Unavailable Edward Araujo MD Unavailable Unavailable Edward Araujo MD Unavailable Unavailable Fatti, J Christopher DPM Unavailable Unavailable Fatti, J Christopher DPM Unavailable Unavailable Fatti, J Christopher DPM Unavailable Unavailable Fatti, J Christopher DPM Unavailable Unavailable Fatti, J Christopher DPM Unavailable Unavailable Fatti, J Christopher DPM Unavailable Unavailable Fatti, J Christopher DPM Unavailable Unavailable Fatti, J Christopher DPM Unavailable Unavailable Fatti, J Christopher DPM Unavailable Unavailable Fatti, J Christopher DPM Unavailable Unavailable Fatti, J Christopher DPM Unavailable Unavailable Fatti, J Christopher DPM Unavailable Unavailable Fatti, J Christopher DPM Unavailable Unavailable Fatti, J Christopher DPM Unavailable Unavailable Fatti, J Christopher DPM Unavailable Unavailable Fatti, J Christopher DPM Unavailable Unavailable Fatti, J Christopher DPM Unavailable Unavailable Fatti, J Christopher DPM Unavailable Unavailable Fatti, J Christopher DPM Unavailable Unavailable Fatti, J Christopher DPM Unavailable Unavailable Fatti, J Christopher DPM Unavailable Unavailable Fatti, J Christopher DPM Unavailable Unavailable Fatti, J Christopher DPM Unavailable Unavailable Fatti, J Christopher DPM Unavailable Unavailable Fatti, J Christopher DPM Unavailable Unavailable Fatti, J Christopher DPM Unavailable Unavailable Fatti, J Christopher DPM Unavailable Unavailable Fatti, J Christopher DPM Unavailable Unavailable Fatti, J Christopher DPM Unavailable Unavailable Fatti, J Christopher DPM Unavailable Unavailable Fatti, J Christopher DPM Unavailable Unavailable Fatti, J Christopher DPM Unavailable Unavailable Fatti, J Christopher DPM Unavailable Unavailable Fatti, J Christopher DPM Unavailable Unavailable Fatti, J Christopher DPM Unavailable Unavailable Fatti, J Christopher DPM Unavailable Unavailable Fatti, J Christopher DPM Unavailable Unavailable Fatti, J Christopher DPM Unavailable Unavailable Fatti, J Christopher DPM Unavailable Unavailable Fatti, J Christopher DPM Unavailable Unavailable Fatti, J Christopher DPM Unavailable Unavailable Fatti, J Christopher DPM Unavailable Unavailable Fatti, J Christopher DPM Unavailable Unavailable Fatti, J Christopher DPM Unavailable Unavailable Fatti, J Christopher DPM Unavailable Unavailable Fatti, J Christopher DPM Unavailable Unavailable Fatti, J Christopher DPM Unavailable Unavailable Fatti, J Christopher DPM Unavailable Unavailable Fatti, J Christopher DPM Unavailable Unavailable Fatti, J Christopher DPM Unavailable Unavailable Fatti, J Christopher DPM Unavailable Unavailable Fatti, J Christopher DPM Unavailable Unavailable Fatti, J Christopher DPM Unavailable Unavailable Fatti, J Christopher DPM Unavailable Unavailable Fatti, J Christopher DPM Unavailable Unavailable Fatti, J Christopher DPM Unavailable Unavailable Fatti, J Christopher DPM Unavailable Unavailable Fatti, J Christopher DPM Unavailable Unavailable Fatti, J Christopher DPM Unavailable Unavailable Fatti, J Christopher DPM Unavailable Unavailable Fatti, J Christopher DPM Unavailable Unavailable Fatti, J Christopher DPM Unavailable Unavailable Fatti, J Christopher DPM Unavailable Unavailable Fatti, J Christopher DPM Unavailable Unavailable Fatti, J Christopher DPM Unavailable Unavailable Fatti, J Christopher DPM Unavailable Unavailable Fatti, J Christopher DPM Unavailable Unavailable Fatti, J Christopher DPM Unavailable Unavailable Servage, L Valeria SOFTWARE SOLUTIONS ARCHITECT Unavailable Unavailable Servage, L Valeria SOFTWARE SOLUTIONS ARCHITECT Unavailable Unavailable Servage, L Valeria SOFTWARE SOLUTIONS ARCHITECT Unavailable Unavailable Servage, L Valeria SOFTWARE SOLUTIONS ARCHITECT Unavailable Unavailable Servage, L Valeria SOFTWARE SOLUTIONS ARCHITECT Unavailable Unavailable Servage, L Valeria SOFTWARE SOLUTIONS ARCHITECT Unavailable Unavailable Servage, L Valeria SOFTWARE SOLUTIONS ARCHITECT Unavailable Unavailable Servage, L Valeria SOFTWARE SOLUTIONS ARCHITECT Unavailable Unavailable Servage, L Valeria SOFTWARE SOLUTIONS ARCHITECT Unavailable Unavailable Servage, L Valeria SOFTWARE SOLUTIONS ARCHITECT Unavailable Unavailable Servage, L Valeria SOFTWARE SOLUTIONS ARCHITECT Unavailable Unavailable Servage, L Valeria SOFTWARE SOLUTIONS ARCHITECT Unavailable Unavailable Servage, L Valeria SOFTWARE SOLUTIONS ARCHITECT Unavailable Unavailable Servage, L Valeria SOFTWARE SOLUTIONS ARCHITECT Unavailable Unavailable Servage, L Valeria SOFTWARE SOLUTIONS ARCHITECT Unavailable Unavailable Servage, L Valeria SOFTWARE SOLUTIONS ARCHITECT Unavailable Unavailable Servage, L Valeria SOFTWARE SOLUTIONS ARCHITECT Unavailable Unavailable Servage, L Valeria SOFTWARE SOLUTIONS ARCHITECT Unavailable Unavailable Servage, L Valeria SOFTWARE SOLUTIONS ARCHITECT Unavailable Unavailable Servage, L Valeria SOFTWARE SOLUTIONS ARCHITECT Unavailable Unavailable Servage, L Valeria SOFTWARE SOLUTIONS ARCHITECT Unavailable Unavailable Servage, L Valeria SOFTWARE SOLUTIONS ARCHITECT Unavailable Unavailable Servage, L Valeria SOFTWARE SOLUTIONS ARCHITECT Unavailable Unavailable Servage, L Valeria SOFTWARE SOLUTIONS ARCHITECT Unavailable Unavailable Servage, L Valeria SOFTWARE SOLUTIONS ARCHITECT Unavailable Unavailable Servage, L Valeria SOFTWARE SOLUTIONS ARCHITECT Unavailable Unavailable Servage, L Valeria SOFTWARE SOLUTIONS ARCHITECT Unavailable Unavailable Servage, L Valeria SOFTWARE SOLUTIONS ARCHITECT Unavailable Unavailable Servage, L Valeria SOFTWARE SOLUTIONS ARCHITECT Unavailable Unavailable Servage, L Valeria SOFTWARE SOLUTIONS ARCHITECT Unavailable Unavailable Servage, L Valeria SOFTWARE SOLUTIONS ARCHITECT Unavailable Unavailable Servage, L Valeria SOFTWARE SOLUTIONS ARCHITECT Unavailable Unavailable Servage, L Valeria SOFTWARE SOLUTIONS ARCHITECT Unavailable Unavailable Servage, L Valeria SOFTWARE SOLUTIONS ARCHITECT Unavailable Unavailable Servage, L Valeria SOFTWARE SOLUTIONS ARCHITECT Unavailable Unavailable Servage, L Valeria SOFTWARE SOLUTIONS ARCHITECT Unavailable Unavailable Servage, L Valeria SOFTWARE SOLUTIONS ARCHITECT Unavailable Unavailable Servage, L Valeria SOFTWARE SOLUTIONS ARCHITECT Unavailable Unavailable Servage, L Valeria SOFTWARE SOLUTIONS ARCHITECT Unavailable Unavailable Servage, L Valeria SOFTWARE SOLUTIONS ARCHITECT Unavailable Unavailable Servage, L Valeria SOFTWARE SOLUTIONS ARCHITECT Unavailable Unavailable Servage, L Valeria SOFTWARE SOLUTIONS ARCHITECT Unavailable Unavailable Servage, L Valeria SOFTWARE SOLUTIONS ARCHITECT Unavailable Unavailable Servage, L Valeria SOFTWARE SOLUTIONS ARCHITECT Unavailable Unavailable Servage, L Valeria SOFTWARE SOLUTIONS ARCHITECT Unavailable Unavailable Servage, L Valeria SOFTWARE SOLUTIONS ARCHITECT Unavailable Unavailable Servage, L Valeria SOFTWARE SOLUTIONS ARCHITECT Unavailable Unavailable Servage, L Valeria SOFTWARE SOLUTIONS ARCHITECT Unavailable Unavailable Servage, L Valeria SOFTWARE SOLUTIONS ARCHITECT Unavailable Unavailable Servage, L Valeria SOFTWARE SOLUTIONS ARCHITECT Unavailable Unavailable Servage, L Valeria SOFTWARE SOLUTIONS ARCHITECT Unavailable Unavailable Servage, L Valeria SOFTWARE SOLUTIONS ARCHITECT Unavailable Unavailable Servage, L Valeria SOFTWARE SOLUTIONS ARCHITECT Unavailable Unavailable Servage, L Valeria SOFTWARE SOLUTIONS ARCHITECT Unavailable Unavailable Servage, L Valeria SOFTWARE SOLUTIONS ARCHITECT Unavailable Unavailable Servage, L Valeria SOFTWARE SOLUTIONS ARCHITECT Unavailable Unavailable Presley WHITAKER AMI DO Unavailable +[phone] Presley WHITAKER AMI DO Unavailable +[phone] 79 Presley WHITAKER AMI DO Unavailable +[phone] 79 Presley WHITAKER AMI DO Unavailable +[phone] 79 Presley WHITAKER AMI DO Unavailable +[phone]) Presley WHITAKER AMI DO Unavailable +[phone] 79 Presley WHITAKER AMI DO Unavailable +[phone] Presley WHITAKER AMI DO Unavailable +[phone]) 79 Presley WHITAKER AMI DO Unavailable +[phone]) 79 Presley WHITAKER AMI DO Unavailable +[phone]) 79 Presley WHITAKER AMI DO Unavailable +[phone]) 79 Presley WHITAKER AMI DO Unavailable +[phone]) 79 Presley WHITAKER AMI DO Unavailable +[phone]) 79 Presley WHITAKER AMI DO Unavailable +[phone]) 79 Presley WHITAKER AMI DO Unavailable +[phone]) 79 Presley WHITAKRE AMI DO Unavailable +[phone]) 79 Presley WHITAKER AMI DO Unavailable +[phone]) 79 Presley WHITAKER AMI DO Unavailable +[phone]) 79 Presley WHITAKER AMI DO Unavailable +[phone]) 79 Presley WHITAKER AMI DO Unavailable +[phone]) 79 Presley WHITAKER AMI DO Unavailable +[phone]) Re-disclosure Warning The records that you are about to access may contain information from federally-assisted alcohol or drug abuse programs. If such information is present, then the following federally mandated warning applies: This information has been disclosed to you from records protected by federal confidentiality rules (42 CFR part 2). The federal rules prohibit you from making any further disclosure of this information unless further disclosure is expressly permitted by the written consent of the person to whom it pertains or as otherwise permitted by 42 CFR part 2. A general authorization for the release of medical or other information is NOT sufficient for this purpose. The Federal rules restrict any use of the information to criminally investigate or prosecute any alcohol or drug abuse patient.The records that you are about to access may contain highly sensitive health information, the redisclosure of which is protected by Article 27-F of the [facility] Public Health law. If you continue you may have access to information: Regarding HIV / AIDS; Provided by facilities licensed or operated by the [facility] Office of Mental Health; or Provided by the [facility] Office for People With Developmental Disabilities. If such information is present, then the following [facility] mandated warning applies: This information has been disclosed to you from confidential records which are protected by state law. State law prohibits you from making any further disclosure of this information without the specific written consent of the person to whom it pertains, or as otherwise permitted by law. Any unauthorized further disclosure in violation of state law may result in a fine or prison sentence or both. A general authorization for the release of medical or other information is NOT sufficient authorization for further disc losure. Allergies and Adverse Reactions Type Description Substance Reaction Status Data Source(s ) Allergy to substance No Known Allergies No known allergies (situation ) [facility]MIAS (Kody Inman MD [facility]) Allergy to substance No Known Allergies No known allergies (situation ) ERMIAS (Kody Inman MD [facility]) Family History Family Member Name Family Member Gender Family Member Status Date o f Status Description Data Source(s) Unknown Unknown Problem MED[facility] ([facility], ) COUSIN AGE 45, Mother too Unknown Unknown Problem MEDENT ([facility]) Unknown Unknown Problem MEDENT (Family [facility]) Unknown Unknown Problem MEDENT ([facility] [place]) Encounters Encounter Providers Location Date Indications Data Source(s ) [place] [address] [facility] [address] 05/25/2020 12:00:00 AM EST eCW1 ([facility]) [place] [address] [facility] [address] 05/25/2020 12:00:00 AM EST eCW1 ([facility]) [place] [address] [facility] [address] 05/20/2020 12:00:00 AM EST eCW1 ([facility]) [place] [address] [facility] [address] 05/13/2020 12:00:00 AM EST eCW1 ([facility]) [place] [address] [facility] [address] 05/10/2020 12:00:00 AM EST eCW1 ([facility]) [place] [address] [facility] [address] 05/03/2020 12:00:00 AM EST eCW1 ([facility]) [place] [address] [facility] [address] 04/21/2020 12:00:00 AM EST eCW1 ([facility]) [place] [address] [facility] [address] 04/19/2020 12:00:00 AM EST eCW1 ([facility]) [place] [address] [facility] [address] 04/18/2020 12:00:00 AM EST eCW1 ([facility]) [place] [address] [facility] [address] 03/29/2020 12:00:00 AM EST eCW1 ([facility]) [place] [address] [facility] [address] 03/24/2020 12:00:00 AM EST eCW1 ([facility]) [place] [address] [facility] [address] 03/21/2020 12:00:00 AM EST [facility]CW1 [facility] Unknown [address] [facility] [address] 03/15/2020 12:00:00 AM EST eCW1 ([facility]) Office Visit, Est Pt., Level 3 PC [address] [place] [address] 03/11/2020 12:00:00 AM EST eCW1 (Critical access hospital) Unknown [address] [facility] [address] 03/11/2020 12:00:00 AM EST eCW1 ([facility]) Unknown [address] [facility] [address] 03/10/2020 12:00:00 AM EST eCW1 ([facility]) Unknown [address] [facility] [address] 03/10/2020 12:00:00 AM EST eCW1 ([facility]) Office Visit, Est Pt., Level 3 PC [address] [place] [address] 02/29/2020 12:00:00 AM EST eCW1 (Critical access hospital) Unknown [address] [facility] [address] 02/26/2020 12:00:00 AM EST eCW1 ([facility]) Outpatient Attender: Eddie Hanson DPMReferrer: Edward weiss MD 02/04/2020 03:40:11 PM EDT [facility] Unknown [address] [facility] [address] 02/01/2020 12:00:00 AM EDT eCW1 ([facility]) Outpatient<td ID="encounterTypeDescripti onID0">Yag Laser Cap Follow up - Global 90 day post op</td><td>Ami Whitaker DO</td><td>Kody Rosas MD [facility]</td><td>01/15/2020</td><td>6:46AM</td><td>7:48AM</td><td><content ID="encounterDiagnosisID0-0">Pseudophakia</content>, <content ID="encounterDiagnosisID0-1">Posterior Capsule Opacification Eccentric Capsule Left Eye</content></td> Attender: [facility] 01/15/2020 06:46:00 AM EDT - 01/15/2020 07:48:00 AM EDT Posterior Capsule Opacification Eccentric Capsule Left EyePseudophakia ERMIAS (Kody Inman MD [facility]) Posterior Capsule Opacification Eccentri c Capsule Left Eye Pseudophakia Outpatient<td ID="encounterTypeDescripti onID1">Yag Laser Capsulotomy - Global: 90 DAY POST OP</td><td>Ami Whitaker DO</td><td>Kody Rosas MD [facility]</td><td>12/23/2019</td><td>7:50AM</td><td>9:01AM</td><td><content ID="encounterDiagnosisID1-0">Posterior Capsule Opacification Eccentric Capsule Right Eye</content></td> Attender: [facility] 12/23/2019 07:50:00 AM EDT - 12/23/2019 09:01:00 AM ED T Posterior Capsule Opacification Eccentric Capsule Right Eye ERMIAS (Kody Inman MD [facility]) Posterior Capsule Opacification Eccentri c Capsule Right Eye [facility] [address] [facility] [address] 12/08/2019 12:00:00 AM EDT eCW1 ([facility]) [facility] [address] [facility] [address] 12/07/2019 12:00:00 AM EDT eCW1 ([facility]) Outpatient<td ID="encounterTypeDescripti onID2">1 Year Follow-Up</td><td>Ami Whitaker DO</td><td>Kody Rosas MD [facility]</td><td>12/01/2019</td><td>7:20AM</td><td>8:27AM</td><td><content ID="encounterDiagnosisID2-0">Diabetes Mellitus Type 2 Without Complication</content>, <content ID="encounterDiagnosisID2- 1">Pseudophakia</content>, <content ID="encounterDiagnosisID2-2">Dry Eye Syndrome</content>, <content ID="encounterDiagnosisID2-3">Vitreous Disorders Degeneration</content>, <content ID="encounterDiagnosisID2-4">Blepharitis Squamous</content>, <content ID="encounterDiagnosisID2-5">Conjunctiva Conjunctivochalasis</content>, <content ID="encounterDiagnosisID2-6">Posterior Capsule Opacification Eccentric Capsule Both Eyes</content></td> Attender: AMI Navas MD [facility] 12/01/2019 07:20:00 AM EDT - 12/01/2019 08:27:00 AM EDT Posterior Capsule Opacification Eccentri c Capsule Both EyesPosterior Capsule Opacification Eccentric Capsule Both EyesConjunctiva ConjunctivochalasisBlepharitis SquamousConjunctiva Conjunctivochalasi sBlepharitis SquamousPseudophakiaPseudophakiaVitreous Disorders DegenerationDry Eye SyndromeDiabetes Mellitus Type 2 Without ComplicationVitreous Disorders DegenerationDry Eye SyndromeDiabetes Mellitus Type 2 Without Complication [place] (Kody Inman MD [facility]) Posterior Capsule Opacification Eccentri c Capsule Both Eyes Posterior Capsule Opacification Eccentri c Capsule Both Eyes Conjunctiva Conjunctivochalasis Blepharitis Squamous Conjunctiva Conjunctivochalasis Blepharitis Squamous Pseudophakia Pseudophakia Vitreous Disorders Degeneration Dry Eye Syndrome Diabetes Mellitus Type 2 Without Complic ation Vitreous Disorders Degeneration Dry Eye Syndrome Diabetes Mellitus Type 2 Without Complic ation Unknown [address] [facility] [address] 11/11/2019 12:00:00 AM EDT eCW1 ([facility]) Outpatient Attender: Eddie WANGeferrer: Edward weiss MD 11/10/2019 01:20:25 PM EDT [facility] Recurring Patient Attender: Eddie GRIFFINMReferrer: Edward Araujo MD 10/14/2019 02:36:48 PM EDT [facility] [place] [address] [facility] [address] 10/12/2019 12:00:00 AM EDT eCW1 ([facility] [place] [address] [facility] [address] 10/09/2019 12:00:00 AM EDT [facility] Unknown [address] [facility] [address] 10/05/2019 12:00:00 AM EDT eCW1 [facility]) Unknown [address] [facility] [address] 2019 12:00:00 AM EDT eCW1 ([facility]) Outpatient Attender: Eddie Hanson DPMReferrer: Edward weiss MD 09/25/2019 04:37:05 PM EDT [facility] [address] [facility] [address] 08/27/2019 12:00:00 AM EDT [facility]CW1 [facility] [address] [facility] [address] 08/19/2019 12:00:00 AM EDT eCW1 ([facility]) [facility] [address] [facility] [address] 08/05/2019 12:00:00 AM EDT eCW1 [facility] [address] [facility] [address] 07/29/2019 12:00:00 AM EDT [facility]CW1 [facility] [address] [place] [address] 07/01/2019 12:00:00 AM EDT eCW1 [facility] [address] [facility] [address] 06/03/2019 12:00:00 AM EST eCW1 ([facility]) [facility] [address] [facility] [address] 05/18/2019 12:00:00 AM EST eCW1 ([facility]) Outpatient Referrer: Valeria Deng NP 05/15/2019 02:53:00 PM EST [facility] [address] [facility] [address] 05/13/2019 12:00:00 AM EST eCW1 ([facility]) [facility] [address] [place] [address] [address] 05/08/2019 12:00:00 AM EST eCW1 ([facility]) [address] [address] 05/05/2019 12:00:00 AM EST eCW1 ([facility]) [facility] [address] [place] [address], [place] [address] 05/05/2019 12:00:00 AM EST eCW1 ([facility]) [facility] [address] [place] [address] [address] 04/29/2019 12:00:00 AM EST eCW1 ([facility]) Immunizations Vaccine Date Status Description Data Source(s) pneumococcal polysaccharide PPV23 02/29/2020 01:48:00 PM EST comple luke eCW1 ([facility]) pneumococcal polysaccharide PPV23 02/29/2020 01:48:00 PM EST comple luke eCW1 ([facility]) pneumococcal polysaccharide PPV23 02/29/2020 01:48:00 PM EST comple luke eCW1 ([facility]) pneumococcal polysaccharide PPV23 02/29/2020 01:48:00 PM EST comple luke eCW1 ([facility]) pneumococcal polysaccharide PPV23 02/29/2020 01:48:00 PM EST comple luke eCW1 ([facility]) pneumococcal polysaccharide PPV23 02/29/2020 01:48:00 PM EST comple luke eCW1 ([facility]) pneumococcal polysaccharide PPV23 02/29/2020 01:48:00 PM EST comple luke eCW1 ([facility]) pneumococcal polysaccharide PPV23 02/29/2020 01:48:00 PM EST comple luke eCW1 ([facility]) pneumococcal polysaccharide PPV23 02/29/2020 01:48:00 PM EST comple luke eCW1 (Formerly [facility]) pneumococcal polysaccharide PPV23 02/29/2020 01:48:00 PM EST comple luke eCW1 (Formerly [facility]) pneumococcal polysaccharide PPV23 02/29/2020 01:48:00 PM EST comple luke eCW1 (Formerly [facility]) pneumococcal polysaccharide PPV23 02/29/2020 01:48:00 PM EST comple luke eCW1 (Formerly [facility]) pneumococcal polysaccharide PPV23 02/29/2020 01:48:00 PM EST comple luke eCW1 (Formerly [facility]) pneumococcal polysaccharide PPV23 02/29/2020 01:48:00 PM EST comple luke eCW1 (Formerly [facility]) pneumococcal polysaccharide PPV23 02/29/2020 01:48:00 PM EST comple luke eCW1 ([facility]ly [facility]) pneumococcal polysaccharide PPV23 02/29/2020 01:48:00 PM EST comple luke eCW1 ([facility]ly [facility]) pneumococcal polysaccharide PPV23 02/29/2020 01:48:00 PM EST comple luke eCW1 ([facility]ly [facility]) pneumococcal polysaccharide PPV23 02/29/2020 01:48:00 PM EST comple luke eCW1 ([facility]ly [facility]) pneumococcal polysaccharide PPV23 02/29/2020 01:48:00 PM EST comple luke eCW1 ([facility]ly [facility]) influenza, recombinant, quadrIvalent,injectable, prese rvative free 02/01/2020 01:47:00 PM EDT completed eCW1 ([facility]) influenza, recombinant, quadrIvalent,injectable, prese rvative free 02/01/2020 01:47:00 PM EDT completed eCW1 ([facility]) influenza, recombinant, quadrIvalent,injectable, prese rvative free 02/01/2020 01:47:00 PM EDT completed eCW1 ([facility]) influenza, recombinant, quadrIvalent,injectable, prese rvative free 02/01/2020 01:47:00 PM EDT completed eCW1 ([facility]) influenza, recombinant, quadrIvalent,injectable, prese rvative free 02/01/2020 01:47:00 PM EDT completed eCW1 ([facility]) influenza, recombinant, quadrIvalent,injectable, prese rvative free 02/01/2020 01:47:00 PM EDT completed eCW1 ([facility]) influenza, recombinant, quadrIvalent,injectable, prese rvative free 02/01/2020 01:47:00 PM EDT completed eCW1 ([facility]) influenza, recombinant, quadrIvalent,injectable, prese rvative free 02/01/2020 01:47:00 PM EDT completed eCW1 ([facility]) influenza, recombinant, quadrIvalent,injectable, prese rvative free 02/01/2020 01:47:00 PM EDT completed eCW1 ([facility]) influenza, recombinant, quadrIvalent,injectable, prese rvative free 02/01/2020 01:47:00 PM EDT completed eCW1 ([facility]) influenza, recombinant, quadrIvalent,injectable, prese rvative free 02/01/2020 01:47:00 PM EDT completed eCW1 ([facility]) influenza, recombinant, quadrIvalent,injectable, prese rvative free 02/01/2020 01:47:00 PM EDT completed eCW1 ([facility]) influenza, recombinant, quadrIvalent,injectable, prese rvative free 02/01/2020 01:47:00 PM EDT completed eCW1 ([facility]) influenza, recombinant, quadrIvalent,injectable, prese rvative free 02/01/2020 01:47:00 PM EDT completed eCW1 ([facility]) influenza, recombinant, quadrIvalent,injectable, prese rvative free 02/01/2020 01:47:00 PM EDT completed eCW1 ([facility]) influenza, recombinant, quadrIvalent,injectable, prese rvative free 02/01/2020 01:47:00 PM EDT completed eCW1 ([facility]) influenza, recombinant, quadrIvalent,injectable, prese rvative free 02/01/2020 01:47:00 PM EDT completed eCW1 ([facility]) influenza, recombinant, quadrIvalent,injectable, prese rvative free 02/01/2020 01:47:00 PM EDT completed eCW1 ([facility]) influenza, recombinant, quadrIvalent,injectable, prese rvative free 02/01/2020 01:47:00 PM EDT completed eCW1 ([facility]) Medications Medication Brand Name Start Date Product Form Dose Route Admi nistrative Instructions Pharmacy Instructions Status Indications Reaction Description Data Source(s) Suprep Bowel Prep Kit Suprep Bowel Prep Kit 05/19/2020 12:00:00 AM EST active [facility] ([facility], ) Bisacodyl 5 MG Delayed Release Oral Tablet [Dulcolax] Dulcol ax 05/19/2020 12:00:00 AM EST ORAL active M [facility]ENT ([facility], ) tramadol hydrochloride 50 MG Oral Tablet Tramadol HCl 50 MG Tramadol HCl 50 MG 03/15/2020 12:00:00 AM EST 1.0 {tablet_as_needed} active Tramadol HCl 50 MG eCW1 ([facility]ly [facility]) tramadol hydrochloride 50 MG Oral Tablet Tramadol HCl 50 MG Tramadol HCl 50 MG 03/15/2020 12:00:00 AM EST 1.0 {tablet_as_needed} active Tramadol HCl 50 MG eCW1 (Formerly [facility]) tramadol hydrochloride 50 MG Oral Tablet Tramadol HCl 50 MG Tramadol HCl 50 MG 03/15/2020 12:00:00 AM EST 1.0 {tablet_as_needed} active Tramadol HCl 50 MG eCW1 (Formerly [facility]) tramadol hydrochloride 50 MG Oral Tablet Tramadol HCl 50 MG Tramadol HCl 50 MG 03/15/2020 12:00:00 AM EST 1.0 {tablet_as_needed} active Tramadol HCl 50 MG eCW1 ([facility]ly [facility]) tramadol hydrochloride 50 MG Oral Tablet Tramadol HCl 50 MG Tramadol HCl 50 MG 03/15/2020 12:00:00 AM EST 1.0 {tablet_as_needed} active Tramadol HCl 50 MG eCW1 ([facility]ly [facility]) tramadol hydrochloride 50 MG Oral Tablet Tramadol HCl 50 MG Tramadol HCl 50 MG 03/15/2020 12:00:00 AM EST 1.0 {tablet_as_needed} suspended Tramadol HCl 50 MG eCW1 ([facility]ly [facility]) tramadol hydrochloride 50 MG Oral Tablet Tramadol HCl 50 MG Tramadol HCl 50 MG 03/15/2020 12:00:00 AM EST 1.0 {tablet_as_needed} suspended Tramadol HCl 50 MG eCW1 ([facility]ly [facility]) tramadol hydrochloride 50 MG Oral Tablet Tramadol HCl 50 MG Tramadol HCl 50 MG 03/15/2020 12:00:00 AM EST 1.0 {tablet_as_needed} active Tramadol HCl 50 MG eCW1 ([facility]) tramadol hydrochloride 50 MG Oral Tablet Tramadol HCl 50 MG Tramadol HCl 50 MG 03/15/2020 12:00:00 AM EST 1.0 {tablet_as_needed} active Tramadol HCl 50 MG eCW1 ([facility]ly [facility]) tramadol hydrochloride 50 MG Oral Tablet Tramadol HCl 50 MG Tramadol HCl 50 MG 03/15/2020 12:00:00 AM EST 1.0 {tablet_as_needed} active Tramadol HCl 50 MG eCW1 ([facility]ly [facility]) tramadol hydrochloride 50 MG Oral Tablet Tramadol HCl 50 MG Tramadol HCl 50 MG 03/15/2020 12:00:00 AM EST 1.0 {tablet_as_needed} active Tramadol HCl 50 MG eCW1 ([facility]ly [facility]) tramadol hydrochloride 50 MG Oral Tablet Tramadol HCl 50 MG Tramadol HCl 50 MG 03/15/2020 12:00:00 AM EST 1.0 {tablet_as_needed} active Tramadol HCl 50 MG eCW1 ([facility]) tramadol hydrochloride 50 MG Oral Tablet Tramadol HCl 50 MG Tramadol HCl 50 MG 03/15/2020 12:00:00 AM EST 1.0 {tablet_as_needed} active Tramadol HCl 50 MG eCW1 ([facility]) tramadol hydrochloride 50 MG Oral Tablet Tramadol HCl 50 MG Tramadol HCl 50 MG 03/15/2020 12:00:00 AM EST 1.0 {tablet_as_needed} active Tramadol HCl 50 MG eCW1 ([facility]) tramadol hydrochloride 50 MG Oral Tablet Tramadol HCl 50 MG Tramadol HCl 50 MG 03/15/2020 12:00:00 AM EST 1.0 {tablet_as_needed} active Tramadol HCl 50 MG eCW1 ([facility]ly [facility]) Diclofenac Sodium 0.01 MG/MG Topical Gel [Voltaren] Voltaren 1 % Voltaren 1 % 03/11/2020 12:00:00 AM EST active Voltaren 1 % eCW1 (Formerly [facility]) Robaxin 500 MG UNK 03/11/2020 12:00:00 AM EST active Robaxin 500 MG eCW1 ([facility]ly [facility]) Robaxin 500 MG UNK 03/11/2020 12:00:00 AM EST active Robaxin 500 MG eCW1 ([facility]ly [facility]) Robaxin 500 MG UNK 03/11/2020 12:00:00 AM EST active Robaxin 500 MG eCW1 (Formerly [facility]) Diclofenac Sodium 0.01 MG/MG Topical Gel [Voltaren] Voltaren 1 % Voltaren 1 % 03/11/2020 12:00:00 AM EST active Voltaren 1 % eCW1 ([facility]ly [facility]) Robaxin 500 MG UNK 03/11/2020 12:00:00 AM EST active Robaxin 500 MG eCW1 ([facility]) Robaxin 500 MG UNK 03/11/2020 12:00:00 AM EST active Robaxin 500 MG eCW1 ([facility]) Robaxin 500 MG UNK 03/11/2020 12:00:00 AM EST active Robaxin 500 MG eCW1 ([facility]ly [facility]) Robaxin 500 MG UNK 03/11/2020 12:00:00 AM EST active Robaxin 500 MG eCW1 ([facility]ly [facility]) Diclofenac Sodium 0.01 MG/MG Topical Gel [Voltaren] Voltaren 1 % Voltaren 1 % 03/11/2020 12:00:00 AM EST active Voltaren 1 % eCW1 ([facility]ly [facility]) Robaxin 500 MG UNK 03/11/2020 12:00:00 AM EST active Robaxin 500 MG eCW1 ([facility]) Robaxin 500 MG UNK 03/11/2020 12:00:00 AM EST active Robaxin 500 MG eCW1 ([facility]ly [facility]) Diclofenac Sodium 0.01 MG/MG Topical Gel [Voltaren] Voltaren 1 % Voltaren 1 % 03/11/2020 12:00:00 AM EST active Voltaren 1 % eCW1 ([facility]ly [facility]) Robaxin 500 MG UNK 03/11/2020 12:00:00 AM EST active Robaxin 500 MG eCW1 ([facility]) Robaxin 500 MG UNK 03/11/2020 12:00:00 AM EST active Robaxin 500 MG eCW1 ([facility]) Diclofenac Sodium 0.01 MG/MG Topical Gel [Voltaren] Voltaren 1 % Voltaren 1 % 03/11/2020 12:00:00 AM EST active Voltaren 1 % eCW1 ([facility]ly [facility]) Diclofenac Sodium 0.01 MG/MG Topical Gel [Voltaren] Voltaren 1 % Voltaren 1 % 03/11/2020 12:00:00 AM EST active Voltaren 1 % eCW1 ([facility]ly [facility]) Diclofenac Sodium 0.01 MG/MG Topical Gel [Voltaren] Voltaren 1 % Voltaren 1 % 03/11/2020 12:00:00 AM EST active Voltaren 1 % eCW1 ([facility]) Diclofenac Sodium 0.01 MG/MG Topical Gel [Voltaren] Voltaren 1 % Voltaren 1 % 03/11/2020 12:00:00 AM EST active Voltaren 1 % eCW1 ([facility]) Robaxin 500 MG UNK 03/11/2020 12:00:00 AM EST active Robaxin 500 MG eCW1 ([facility]) Robaxin 500 MG UNK 03/11/2020 12:00:00 AM EST active Robaxin 500 MG eCW1 ([facility]) Robaxin 500 MG UNK 03/11/2020 12:00:00 AM EST active Robaxin 500 MG eCW1 ([facility]) Diclofenac Sodium 0.01 MG/MG Topical Gel [Voltaren] Voltaren 1 % Voltaren 1 % 03/11/2020 12:00:00 AM EST active Voltaren 1 % eCW1 ([facility]) Robaxin 500 MG UNK 03/11/2020 12:00:00 AM EST active Robaxin 500 MG eCW1 ([facility]) Diclofenac Sodium 0.01 MG/MG Topical Gel [Voltaren] Voltaren 1 % Voltaren 1 % 03/11/2020 12:00:00 AM EST active Voltaren 1 % eCW1 ([facility]ly [facility]) Diclofenac Sodium 0.01 MG/MG Topical Gel [Voltaren] Voltaren 1 % Voltaren 1 % 03/11/2020 12:00:00 AM EST active Voltaren 1 % eCW1 ([facility]) Diclofenac Sodium 0.01 MG/MG Topical Gel [Voltaren] Voltaren 1 % Voltaren 1 % 03/11/2020 12:00:00 AM EST active Voltaren 1 % eCW1 ([facility]) Diclofenac Sodium 0.01 MG/MG Topical Gel [Voltaren] Voltaren 1 % Voltaren 1 % 03/11/2020 12:00:00 AM EST active Voltaren 1 % eCW1 ([facility]ly [facility]) Diclofenac Sodium 0.01 MG/MG Topical Gel [Voltaren] Voltaren 1 % Voltaren 1 % 03/11/2020 12:00:00 AM EST active Voltaren 1 % eCW1 ([facility]ly [facility]) Robaxin 500 MG UNK 03/11/2020 12:00:00 AM EST active Robaxin 500 MG eCW1 ([facility]) Robaxin 500 MG UNK 03/11/2020 12:00:00 AM EST active Robaxin 500 MG eCW1 ([facility]) Diclofenac Sodium 0.01 MG/MG Topical Gel [Voltaren] Voltaren 1 % Voltaren 1 % 03/11/2020 12:00:00 AM EST active Voltaren 1 % eCW1 ([facility]) Diclofenac Sodium 0.01 MG/MG Topical Gel [Voltaren] Voltaren 1 % Voltaren 1 % 03/11/2020 12:00:00 AM EST active Voltaren 1 % eCW1 ([facility]) Diclofenac Sodium 0.01 MG/MG Topical Gel [Voltaren] Voltaren 1 % Voltaren 1 % 03/11/2020 12:00:00 AM EST active Voltaren 1 % eCW1 ([facility]ly [facility]) NITROFURANTOIN, MACROCRYSTALS 25 MG / Ni trofurantoin, Monohydrate 75 MG Oral Capsule Nitrofurantoin Monohyd Macro 100 MG Nitrofurantoin Monohyd Macro 100 MG 2019 12:00:00 AM EDT active Nitrofurantoin Monohyd Macro 100 MG eCW1 ([facility]ly [facility]) NITROFURANTOIN, MACROCRYSTALS 25 MG / Ni trofurantoin, Monohydrate 75 MG Oral Capsule Nitrofurantoin Monohyd Macro 100 MG Nitrofurantoin Monohyd Macro 100 MG 2019 12:00:00 AM EDT active Nitrofurantoin Monohyd Macro 100 MG eCW1 ([facility]ly [facility]) NITROFURANTOIN, MACROCRYSTALS 25 MG / Ni trofurantoin, Monohydrate 75 MG Oral Capsule Nitrofurantoin Monohyd Macro 100 MG Nitrofurantoin Monohyd Macro 100 MG 2019 12:00:00 AM EDT active Nitrofurantoin Monohyd Macro 100 MG eCW1 ([facility]ly [facility]) NITROFURANTOIN, MACROCRYSTALS 25 MG / Ni trofurantoin, Monohydrate 75 MG Oral Capsule Nitrofurantoin Monohyd Macro 100 MG Nitrofurantoin Monohyd Macro 100 MG 2019 12:00:00 AM EDT active Nitrofurantoin Monohyd Macro 100 MG eCW1 ([facility]) NITROFURANTOIN, MACROCRYSTALS 25 MG / Ni trofurantoin, Monohydrate 75 MG Oral Capsule Nitrofurantoin Monohyd Macro 100 MG Nitrofurantoin Monohyd Macro 100 MG 2019 12:00:00 AM EDT active Nitrofurantoin Monohyd Macro 100 MG eCW1 ([facility]) NITROFURANTOIN, MACROCRYSTALS 25 MG / Ni trofurantoin, Monohydrate 75 MG Oral Capsule Nitrofurantoin Monohyd Macro 100 MG Nitrofurantoin Monohyd Macro 100 MG 2019 12:00:00 AM EDT active Nitrofurantoin Monohyd Macro 100 MG eCW1 ([facility]ly [facility]) Lisinopril 5 MG Oral Tablet Lisinopril 5 MG 08/05/2019 12:00:00 AM EDT 1.0 {tablet} active Lisinopril 5 MG eCW1 ([facility]) Lisinopril 5 MG Oral Tablet Lisinopril 5 MG 08/05/2019 12:00:00 AM EDT active 1 tablet eCW1 ([facility]ly [facility]) Lisinopril 5 MG Oral Tablet Lisinopril 5 MG 08/05/2019 12:00:00 AM EDT 1.0 {tablet} active Lisinopril 5 MG eCW1 ([facility]) Lisinopril 5 MG Oral Tablet Lisinopril 5 MG 08/05/2019 12:00:00 AM EDT 1.0 {tablet} active Lisinopril 5 MG eCW1 ([facility]) Lisinopril 5 MG Oral Tablet Lisinopril 5 MG 08/05/2019 12:00:00 AM EDT 1.0 {tablet} active Lisinopril 5 MG eCW1 ([facility]) Lisinopril 5 MG Oral Tablet Lisinopril 5 MG 08/05/2019 12:00:00 AM EDT 1.0 {tablet} active Lisinopril 5 MG eCW1 ([facility]) Lisinopril 5 MG Oral Tablet Lisinopril 5 MG 08/05/2019 12:00:00 AM EDT 1.0 {tablet} active Lisinopril 5 MG eCW1 ([facility]) Famotidine 20 MG Oral Tablet Famotidine 20 MG 06/03/2019 12:00:[address] active 1 tablet at bedtime as ne eded eCW1 ([facility]) Famotidine 20 MG Oral Tablet Famotidine 20 MG 06/03/2019 12:00:00 A M EST 1.0 {tablet_at_bedtime_as_needed} active Fa motidine 20 MG eCW1 ([facility]) Famotidine 20 MG Oral Tablet Famotidine 20 MG 06/03/2019 12:00:[address] active 1 tablet at bedtime as ne eded eCW1 ([facility]) Famotidine 20 MG Oral Tablet Famotidine 20 MG 06/03/2019 12:00:00 A M EST 1.0 {tablet_at_bedtime_as_needed} active Fa motidine 20 MG eCW1 ([facility]) Famotidine 20 MG Oral Tablet Famotidine 20 MG 06/03/2019 12:00:00 A M EST 1.0 {tablet_at_bedtime_as_needed} active Fa motidine 20 MG eCW1 ([facility]) Famotidine 20 MG Oral Tablet Famotidine 20 MG 06/03/2019 12:00:00 A M EST 1.0 {tablet_at_bedtime_as_needed} active Fa motidine 20 MG eCW1 ([facility]) Famotidine 20 MG Oral Tablet Famotidine 20 MG 06/03/2019 12:00:00 A M EST 1.0 {tablet_at_bedtime_as_needed} active Fa motidine 20 MG eCW1 ([facility]) Famotidine 20 MG Oral Tablet Famotidine 20 MG 06/03/2019 12:00:00 A M EST 1.0 {tablet_at_bedtime_as_needed} active Fa motidine 20 MG eCW1 ([facility]) Cefuroxime 500 MG Oral Tablet Cefuroxime Axetil 500 MG Cefur oxime Axetil 500 MG 05/05/2019 12:00:00 AM EST active 1 tablet eCW1 ([facility]) Cefuroxime 500 MG Oral Tablet Cefuroxime Axetil 500 MG Cefur oxime Axetil 500 MG 05/05/2019 12:00:00 AM EST active 1 tablet eCW1 ([facility]) Cefuroxime Axetil 500 MG UNK 05/05/2019 12:00:00 AM EST active 1 tablet eCW1 ([facility]) Prednisone 20 MG Oral Tablet PredniSONE 20 MG PredniSONE 20 MG 05/05/2019 12:00:00 AM EST suspended 2 tab lets eCW1 ([facility]ly [facility]) Prednisone 20 MG Oral Tablet PredniSONE 20 MG PredniSONE 20 MG 05/05/2019 12:00:00 AM EST active 2 tablet s eCW1 ([facility]) PredniSONE 20 MG UNK 05/05/2019 12:00:00 AM EST a ctive 2 tablets eCW1 ([facility]ly [facility]) Insurance Providers Payer name Policy type / Coverage type Policy ID Covered alliance party ID Covered alliance party's relationship to archuleta Policy [place] Plan Information [employer] [id number] SP [id number] [employer] Options Medicare Adv Plan F [id number] SELF [id number] WE[employer]CARE O [id number] S [id number] WE[employer]ARE [id number] SP [id number] [facility] Maintenance Organization ( O) [id number] ANSI-Medicare Part B [id number] ANSI-Medicare Part B [id number] [facility]-Health Maintenance Organization ( O) [id number] ANSI-Medicare Part B [id number] ANS-Health Maintenance Organization ( O) [id number] ANS-Health Maintenance Organization ( O) [id number] ANSI-Medicare Part B [id number] ANSI-Medicare Part B [id number] ANSI-Health Maintenance Organization ( O) [id number] ANSI-Medicare Part B [id number] ANSI-Health Maintenance Organization ( O) [id number] [facility]-Health Maintenance Organization ( O) [id number] ANSI-Medicare Part B [id number] ANSI-Medicare Part B [id number] [facility] ( [facility]) [id number] ANSI-Medicare Part B [id number] ANSI-Health Maintenance Organization ( O) [id number] ANSI-Health Maintenance Organization ( O) [id number] ANSI-Medicare Part B [id number] ANSI-Medicare Part B [id number] [facility] ( O) [id number] ANSI-Medicare Part B [id number] ANS-Health Maintenance Organization ( O) [id number] ANSI-Medicare Part B [id number] [facility]-Health Maintenance Organization ( O) [id number] ANSI-Medicare Part B [id number] ANSI-Health Maintenance Organization ( O) [id number] ANSI-Medicare Part B [id number] ANSI-Health Maintenance Organization ( O) [id number] ANSI-Medicare Part B [id number] ANSI-Health Maintenance Organization ( O) [id number] [employer] OPTIONS [id number] SP [id number] [facility] PLANS O UNAVAILABLE S UNAVAILABLE ANSI-Health Maintenance Organization ( O) [id number] ANSI-Medicare Part B [id number] ANSI-Health Maintenance Organization ( O) [id number] ANSI-Medicare Part B [id number] [employer]/NAMIBIAN O [id number] S [id number] ANSI-Health Maintenance Organization (HM O) [id number] ANSI-Medicare Part B [id number] ANSI-Medicare Part B [id number] Medicare C [id number] SELF [id number] A [facility] AARP Supplemental F [id number] SELF [id number] TODAYS OPTIONS [id number] SP [id number] TODAYS OPTIONS [id number] SP [id number] AARP HE[employer] CARE OPTIONS [id number] SP [id number] TODAYS OPTIONS/NAMIBIAN O [id number] S [id number] Today's Options Medicare Commercial [id number] Self [id number] Today's Options Medicare Commercial [id number] Self [id number] TODAYS OPTIONS [id number] SP [id number] Today's Option Commercial [id number] Self [id number] Aarp Commercial [id number] Self [id number] [place] Primary [id number] Self [id number] Today's Option Commercial [id number] Self [id number] Aarp Commercial [id number] Self [id number] [place] Primary [id number] Self [id number] Today's Options Medicare Commercial [id number] Self [id number] Today's Option Commercial Self Aarp Commercial Self Medicare [facility] Medicare Primary Self Medicare C [id number] SELF [id number] D MEDICARE A [id number] Self [id number] A [facility] Supplemental F [id number] SELF [id number] MEDICARE A [id number] Self [id number] A MEDICARE [id number] SP [id number] A AARP U [id number] Self [id number] MEDICARE C [id number] S [id number] A MEDICARE C [id number] S [id number] D AARP O [id number] S [id number] [facility] Medigap Part B Self Medicare Medigap Part B Self [facility] Medigap Part B Self Medicare Medicare Primary Self [facility] OPTIONS [id number] SP [id number] MEDICARE [id number] SP [id number] D SELF PAY UNAVAILABLE SP UNAVAILA BLE AARP HE[employer] CARE O [id number] S [id number] MEDICARE M [id number] S [id number] D MEDICARE A [id number] Self [id number] D Problems, Conditions, and Diagnoses Code Display Name Description Problem Type Effective Dates Data Source(s) 20126574 Essential hypertension Essential hypertension Problem 05/19/2020 12:00:00 AM EST MEDENT ([facility], ) M54.32 43019918 Sciatica of left side Problem 03/29/2020 12: 00:00 AM EST eCW1 ([facility]) M54.42 [id number] Acute left-sided low back pain w ith left-sided sciatica Problem 03/11/2020 12:00:00 AM EST eCW1 ([facility]) [id number] Posterior Capsule Opacification Eccentri c Capsule Left Eye Posterior Capsule Opacification Eccentric Capsule Left Eye Problem 01/14 12:00:00 AM EDT ERMIAS (Kody Inman MD [facility]) [id number] Posterior Capsule Opacification Eccentri c Capsule Right Eye Posterior Capsule Opacification Eccentric Capsule Right Eye Problem 05/2019 12:00:00 AM EDT - 01/15/2020 12:00:00 AM EDT ERMIAS (Kody Inman MD [facility]) D18.01 [id number] Oden angioma Problem 07/24/2019 12:00:00 A M EDT eCW1 ([facility]) L81.4 [id number] Lentigines Problem 07/24/2019 12:00:00 AM ED T eCW1 (Formerly [facility]) D22.30 [id number] Melanocytic nevi of face Problem 07/24/2019 12:00:00 AM EDT eCW1 (Formerly [facility]) Z80.8 [id number] Family history of skin cancer Problem 07/24/2019 12:00:00 AM EDT eCW1 ([facility]ly [facility]) L82.1 [id number] SK (seborrheic keratosis) Problem 07/24/2019 12:00:00 AM EDT eCW1 (Formerly [facility]) D22.5 [id number] Melanocytic nevi of trunk Problem 07/24/2019 12:00:00 AM EDT eCW1 (Formerly [facility]) D22.61 889831150 Melanocytic nevi of right upper limb, including shoulder Problem 07/24/2019 12:00:00 AM EDT eCW1 ([facility]) D22.72 668256247 Melanocytic nevi of left lower limb, incl uding hip Problem 07/24/2019 12:00:00 AM EDT eCW1 ([facility]ly [facility]) D22.71 294815259 Melanocytic nevi of right lower limb, inc luding hip Problem 07/24/2019 12:00:00 AM EDT eCW1 ([facility]ly [facility]) D22.62 648895360 Melanocytic nevi of left upper l imb, including shoulder Problem 07/24/2019 12:00:00 AM EDT eCW1 ([facility]) D22.62 [id number] Melanocytic nevi of left upper l imb, including shoulder Problem 07/24/2019 12:00:00 AM EDT eCW1 ([facility]) D22.71 542118449 Melanocytic nevi of right lower limb, inc luding hip Problem 07/24/2019 12:00:00 AM EDT eCW1 ([facility]ly [facility]) D22.72 051284181 Melanocytic nevi of left lower limb, incl uding hip Problem 07/24/2019 12:00:00 AM EDT eCW1 ([facility]ly [facility]) L81.4 [id number] Lentigines Problem 07/24/2019 12:00:00 AM ED T eCW1 ([facility]ly [facility]) D22.5 391459207 Melanocytic nevi of trunk Problem 07/24/2019 12:00:00 AM EDT eCW1 ([facility]ly [facility]) D18.01 6000712 Oden angioma Problem 07/24/2019 12:00:00 A M EDT eCW1 ([facility]ly [facility]) D22.61 [id number] Melanocytic nevi of right upper limb, including shoulder Problem 07/24/2019 12:00:00 AM EDT eCW1 ([facility]) D22.30 986487009 Melanocytic nevi of face Problem 07/24/2019 12:00:00 AM EDT eCW1 ([facility]ly [facility]) Z80.8 [id number] Family history of skin cancer Problem 07/24/2019 12:00:00 AM EDT eCW1 ([facility]ly [facility]) L82.1 [id number] SK (seborrheic keratosis) Problem 07/24/2019 12:00:00 AM EDT eCW1 (Formerly [facility]) 366.16 Cataract Senile Nuclear Cataract Senile Nuclear Proble m 08/27/2018 12:00:00 AM EDT - 12/01/2019 12:00:00 AM EDT ERMIAS (Kody Inman MD [facility]) 366.16 Cataract Senile Nuclear Cataract Senile Nuclear Proble m 08/27/2018 12:00:00 AM EDT - 12/01/2019 12:00:00 AM EDT ERMIAS (Kody Inman MD [facility]) Surgeries/Procedures Procedure Description Date Indications Data Source(s) PNEUMOCOCCAL POLYSAC VACCINE 23-V 2 />YR SUBQ/IM 02/28 12:00:00 AM EST eCW1 (Formerly [facility]) Discission of membranous cataract, secondary (procedur e) 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 Whitaker 01/15/2020 12:00:00 AM EDT ERMIAS (Wilton Inman MD [facility]) Yag Laser Capulotomy (Right Side) Yag Laser Capulotomy (Righ t Side) 12/23/2019 12:00:00 AM EDT ERMIAS (Kody Inman MD [facility]) Surgical / procedural history Hernia 1998, Bladder Li ft 2004 Surgical / procedural history Hernia 1998, Bladder Lift 200412/01/2019 12:00:00 AM EDT ERMIAS (Kody Inman MD [facility]) Extracapsular extraction of lens (procedure) History o f extracapsular cataract extraction PCIOL OS- MFIOL by Dr. Whitaker 10/30/18 ~PCIOL OD- MFIOL by Dr. Whitaker 11/13/18 12/01/2019 12:00:00 AM EDT ERMIAS (Wilton Inman MD [facility]) Intermediate Eye Exam Established Patient Intermediate Eye Exam Established Patient 12/01/2019 12:00:00 AM EDT ERMIAS (Wilton Inman MD [facility]) Intermediate Eye Exam Established Patient Intermediate Eye Exam Established Patient 12/01/2019 12:00:00 AM EDT ERMIAS (Wilton Inman MD [facility]) Office Visit, New Pt., Level 3 PC 07/01/2019 12:00:00 AM EDT eCW1 ([facility]ly [facility]) Annual wellness visit, includes a person alized prevention plan of service (pps), subsequent visit 06/03/2019 12:00:00 AM EST eCW 1 (Formerly [facility]) Influenza immunization administered or previously received 06/03/2019 12:00:00 AM EST eCW1 (Formerly [facility]) Office Visit, Est Pt., Level 2 FC 05/05/2019 12:00:00 AM EST eCW1 (Formerly [facility]) Office Visit, Est Pt., Level 3 PC 05/05/2019 12:00:00 AM EST eCW1 ([facility]ly [facility]) Results ID Date Data Source [id number] 06/11/2020 10:00:00 AM EST [facility] Name Value Range Interpretation Code Description Data Laurie rce(s) Supporting Document(s) SARS coronavirus 2 RNA Not Detected [facility] [place] This lab was ordered by [facility] and reported by [facility]. ID Date Data Source [id number] 06/02/2020 08:05:00 AM EST MEDENT ([facility]) Name Value Range Interpretation Code Description Data Laurie rce(s) Supporting Document(s) Total Iron Binding Capacity 476 ug/dL 250-450 Above high normal MEDENT ([facility]) Percent Saturation 15.5 % 13.2-45.0 Normal (applies to non-numer ic results) [facility] ([facility]) Iron (Fe) 74 ug/dL 50-170 Normal (applies to non-numeric resul ts) [facility] ([facility]) ID Date Data Source [id number] 05/25/2020 02:25:00 PM EST MEDENT ([facility]) Name Value Range Interpretation Code Description Data Laurie rce(s) Supporting Document(s) Red Blood Count 3.95 10 4.00-5.40 Below low normal [facility] ([facility]) White Blood Count 12.4 10 4.0-10.0 Above high normal [facility] Mean Corpuscular Volume 90.4 fl 80.0-96.0 Normal ( applies to non-numeric results) [facility] ([facility]) Hematocrit 35.7 % 36.0-47.0 Below low normal [facility] ( [facility]) Hemoglobin 11.4 g/dL 12.0-15.5 Below low normal [facility] Red Cell Distribution Width 13.3 % 11.5-14.5 Norm al (applies to non-numeric results) [facility] ([facility]) Mean Corpuscular Hemoglobin 28.9 pg 27.0-33.0 Norm al (applies to non-numeric results) [facility] Mean Corpuscular HGB Conc 31.9 g/dL 32.0-36.5 Below low normal [facility] ([facility]) Platelet Count, Automated 462 10 150-450 Above high normal [facility] ([facility]) Nucleated Red Blood Cell % 0.0 % 0-0 Normal (applies to n on-numeric results) [facility] ([facility]) 05/27/20 (SatMay 27) 04:45 PM RAMEZ SEQUEIRA Abnormalities noted. Will discuss with patient. See triage. ID Date Data Source PLZ FOOT COMPLETE 03/11/2020 12:00:00 AM EST eCW1 ([facility] Name Value Range Interpretation Code Description Data Laurie rce(s) Supporting Document(s) PLZ FOOT COMPLETE eCW1 ([facility]) ID Date Data Source PLZ ANKLE COMPLETE 03/11/2020 12:00:00 AM EST eCW1 ([facility] hospital) Name Value Range Interpretation Code Description Data Laurie rce(s) Supporting Document(s) PLZ ANKLE COMPLETE [facility] ID Date Data Source [id number] 02/04/2020 03:40:11 PM EDT [facility] PCName: Lucy BellHEIDI: 1945Provider: Dinorah Hanson: 02/04/2020 History of Present IllnessCHIEF COMPLAINTFollow-up of left foot.HISTORY OF PRESENT ILLNESSSandra returns today for follow-up of her left foot. The patient reports that her symptoms remain unchanged. She states that she has continued to use her orthotics. AssessmentASSESSMENT:Left chronic posterior tibial tendinitis and posterior tibial tendon dysfunction, managed well with cmst-rzn-qffjern orthotics. PlanPLAN:I have recommended continued use of her orthotics, avoiding over exertion on uneven ground, and a copper compression sleeve for now. There is still no indication for surgery. Her MRI that we previously did a couple of months ago looks reasonable. There is just mild tenosynovitis with an osteochondral lesion of the ankle which is asymptomatic. She is doing reasonably well at this point. She will follow up with me again in 6 months after the winter and I did give her a 6-month handicap parking pass. Work / School NoteThe incident described by the patient is a competent medical cause of this injury. The patient's complaints are consistent with the history of the injury/illness. The patient's history of the injury/illness is consistent with my objective findings. The percentage of temporary impairment is 0%. The patient is not working at this time. Lucy Bell is retired. Scribed by Stalin APTEL on 02/04/2020 at 12:35 PM for Eddie Hanson Signatures Electronically signed by : Stalin Alonzo MA; Feb 04 2020 12:35PM EST (Author) Electronically signed by : Eddie Hanson DPM; Feb 04 2020 3:40PM EST Name Value Range Interpretation Code Description Data Laurie rce(s) Supporting Document(s) ID Date Data Source [id number] 11/10/2019 01:20:25 PM EDT [facility] PCName: Lucy BellB: 1945Provider: Dinorah Hanson: 11/05/2019 History of Present IllnessCHIEF COMPLAINTFollow-up left foot.HISTORY OF PRESENT ILLNESSSaandrew returns today for follow-up of her left foot MRI. She reports her symptoms remain unchanged. She states she occasionally experiences sharp pains, which could likely be flare of her arthritis. She requests a handicap parking permit for a shorter time period. Results/Data OtherMRI of the left foot was reviewed. Findings reveal tenosynovitis and thickening of the posterior tibial tendon, but it has not progressed since her previous study. There is medial osteochondral lesion in the talar dome. There is no associated bone marrow edema. There is some slight edema through the foot with degenerative changes of the hindfoot AssessmentASSESSMENT:1. Left chronic posterior tibial tendinitis and posterior tibial tendon dysfunction, managed well with fook-wkf-oqiamtc orthotics. PlanPLANWe are going to have her continue with orthotics, a soft brace, and activity modification when needed. I think she is doing pretty well. At this point, her MRI does not show any urgent need for surgery or any other i ntervention. I am going to have her continue with supportive shoes, occasional use of the ankle brace, modifying activities, and arthritis jvui-kdv-tcxpmbq medications when need be. She is in agreement with today's plan. I will see her back in 01/2020. I did give her a 6 month pass for handicap parking. Work / School NoteThe incident described by the patient is a competent medical cause of this injury. The patient's complaints are consistent with the history of the injury/illness. The patient's history of the injury/illness is consistent with my objective findings. The percentage of temporary impairment is 0%. The patient is not working at this time. Lucy Bell is retired. Scribed by Marlo on 11/06/2019 at 12:29 AM for Eddie Hanson Signatures Electronically signed by : Marlo Marion MA; Nov 06 2019 12:29AM EST (Author) Electronically signed by : Eddie Hanson DPM; Nov 10 2019 1:20PM EST Name Value Range Interpretation Code Description Data Laurie rce(s) Supporting Document(s) ID Date Data Source [id number] 10/22/2019 08:24:00 AM EDT [facility] PATIENT MR#: [id number] NAME: LUCY GAO OF : 1945REFERRING PHYSICIAN: Eddie Alberts DATE: 10/21/2019EXAM: MRI left AnkleINDICATION: Chronic left ankle pain. Left foot pain. Posterior tibialtendinitis.COMPARISON: Left foot radiographs 03/07/2012, MRI left ankle 02/25/2012TECHNIQUE: MRI scan of the left ankle was performed using various scan planesand pulse sequences. FINDINGS: Lateral ligaments: The anterior tibiofibular, posterior tibiofibular, anterior talofibular,posterior talofibular, and calcaneofibular ligaments are intact.Medial ligaments: The tibi otalar deep deltoid and tibial spring ligaments are intact.Tendons: There is again mild excess fluid within the posterior tibial tendon sheath,chronic tenosynovitis. No tendon tear is seen. The flexor digitorum longustendon is intact. Mild fluid within the flexor hallucis longus tendon sheath atthe level of the subtalar joints and within the plantar midfoot posterior to theknot of Gilbert, mild tenosynovitis. The peroneus longus and brevis tendons areintact. The anterior extensor tendons and Achilles tendon are intact.Fat is preserved within the sinus tarsi. There is marked pes planus. Noplantar fasciitis.There is again high-grade partial full-thickness cartilage loss in the region ofthe far medial and minimally posterior aspect of the talar dome measuring up to5 mm in transverse dimension and 8 mm in AP dimension, similar in size to prior.There is interval resolution of the previously seen underlying marrow edema. Chronic cystic change remains from this chronic osteochondral defect.Mild to moderate diffuse marrow edema throughout the cuboid, with high-gradepartial full- thickness cartilage loss at the calcaneocuboid articulation. Thereis also focal marrow edema within the inferior aspect of the adjacent anteriorprocess of the calcaneus. This edema is likely degenerative.Decreased T1 and increased T2 signal focus within the junction of the posterioraspect of the anterior process of the calcaneus and the posterior subtalararticular facets of the calcaneus, compatible with a normal variant vascularrest in this region.Normal muscle signal. The tarsal tunnel is unremarkable. The Lisfranc ligamentcomplex is intact.IMPRESSION: 1. Mild posterior tibial tenosynovitis, similar to 02/25/2012. The is likelychronic.2. Minimal flexor hallucis longus tenosynovitis, age indeterminate.3. Chronic medial talar dome osteochondral defect without evidence ofinstability. Resolution of associated marrow edema seen on prior 02/25/2012 MRI.4. Diffuse edema within the cuboid and more mild edema within the adjacentsubchondral anterior process of the calcaneus, with moderate degenerativecartilage changes. This is likely subacute to chronic.Read by: Bryon Soto by: Bryon Soto Date: 10/22/2019 8:24:59 AMElectronically signed by: Bryon Trevizo signed: 10/22/2019 8:26:06 AM Name Value Range Interpretation Code Description Data Laurie rce(s) Supporting Document(s) ID Date Data Source [id number] 09/25/2019 04:37:05 PM EDT [facility] Tsai: 1945Provider: Dinorah Hanson: 09/24/2019 History of Present IllnessSandra returns today. She states overall she feels like she is getting worse. He wears work boots and wiqm-eiz-xvbzdvx insoles, but is having an increase in pain and swelling as well as weakness in the left medial hindfoot area. AssessmentASSESSMENT:1. Left chronic posterior tibial tendinitis and posterior tibial tendon dysfunction, managed well with tosa-boy-bisnidz orthotics. Plan MRI (SOS) Referral Diagnostic Diagnostic Status: Hold For - WC Scheduling (SOS) Requested for: 24Sep2019 Ordered;For: Left foot pain, Posterior tibial tendonitis; Ordered By: Eddie Hanson Performed: Due: 08Oct2019; Last Updated By: Marquise Burden; 09/24/2019 9:40:05 AMMRI Ordered Contrast : 01: without gadoLaterality: : Left She is taken a bit of a downturn over the last 2 visits. As such, I like an MRI to evaluate her posterior tibial tendon to rule out rupture, more micro-tearing, or any other internal derangement. Ideally, through Worker's Comp., we can get that study done in the next 1-2 months. After that she should see me for a wet read appointment and we can see her and make a long-term plan from there. She still wants little to nothing to do with surgery, which is fine, but the MRI will give us an idea of how bad this has become as we can compare it with her previous study. She is in agreement. Work / School NoteThe incident described by the patient is a competent medical cause of this injury. The patient's complaints are consistent with the history of the injury/illness. The patient's history of the injury/illness is consistent with my objective findings. The percentage of temporary impairment is 0%. The patient is not working at this time. Lucy Bell is retired. Signatures Electronically signed by : Eddie Hanson DPM; Sep 25 2019 4:37PM EST (Author) Name Value Range Interpretation Code Description Data Laurie rce(s) Supporting Document(s) Procedure Social History Code Duration Value Status Description Data Source(s ) Smoking 05/25/2020 12:00:00 AM EST Never Smoker completed Never S moker eCW1 (Formerly [facility]) Smoking 05/25/2020 12:00:00 AM EST Never Smoker completed Never S moker eCW1 (Formerly [facility]) Smoking 05/04/2020 12:00:00 AM EST Never Smoker completed Never S moker eCW1 (Formerly [facility]) Smoking 05/04/2020 12:00:00 AM EST Never Smoker completed Never S moker eCW1 ([facility]ly [facility]) Smoking 05/04/2020 12:00:00 AM EST Never Smoker completed Never S moker eCW1 ([facility]ly [facility]) Smoking 05/04/2020 12:00:00 AM EST Never Smoker completed Never S moker eCW1 ([facility]ly [facility]) Smoking 05/04/2020 12:00:00 AM EST Never Smoker completed Never S moker eCW1 ([facility]ly [facility]) Smoking 04/19/2020 12:00:00 AM EST Never Smoker completed Never S moker eCW1 (Formerly [facility]) Smoking 04/19/2020 12:00:00 AM EST Never Smoker completed Never S moker eCW1 (Formerly [facility]) Smoking 04/18/2020 12:00:00 AM EST Never Smoker completed Never S moker eCW1 ([facility]ly [facility]) Smoking 03/11/2020 12:00:00 AM EST Never Smoker completed Never S moker eCW1 ([facility]ly [facility]) Smoking 03/11/2020 12:00:00 AM EST Never Smoker completed Never S moker eCW1 ([facility]ly [facility]) Smoking 03/11/2020 12:00:00 AM EST Never Smoker completed Never S moker eCW1 ([facility]ly [facility]) Smoking 03/11/2020 12:00:00 AM EST Never Smoker completed Never S moker eCW1 ([facility]ly [facility]) Smoking 03/11/2020 12:00:00 AM EST Never Smoker completed Never S moker eCW1 ([facility]ly [facility]) Smoking 03/11/2020 12:00:00 AM EST Never Smoker completed Never S moker eCW1 ([facility]ly [facility]) Smoking 03/11/2020 12:00:00 AM EST Never Smoker completed Never S moker eCW1 ([facility]ly [facility]) Smoking 02/29/2020 12:00:00 AM EST Never Smoker completed Never S moker eCW1 ([facility]ly [facility]) Smoking 02/29/2020 12:00:00 AM EST Never Smoker completed Never S moker eCW1 (Formerly [facility]) Smoking 01/15/2020 08:09:50 AM EDT Never smoked tobacco (findi ng) completed Never smoked tobacco (finding) ERMIAS (Kody Inman MD [facility]) Smoking 12/01/2019 08:29:27 AM EDT Never smoked tobacco (findi ng) completed Never smoked tobacco (finding) ERMIAS (Kody Inman MD [facility]) Smoking 2019 12:00:00 AM EDT Never Smoker completed Never S moker eCW1 (Formerly [facility]) Smoking 2019 12:00:00 AM EDT Never Smoker completed Never S moker eCW1 (Formerly [facility]) Smoking 2019 12:00:00 AM EDT Never Smoker completed Never S moker eCW1 ([facility]ly [facility]) Smoking 2019 12:00:00 AM EDT Never Smoker completed Never S moker eCW1 ([facility]ly [facility]) Smoking 2019 12:00:00 AM EDT Never Smoker completed Never S moker eCW1 ([facility]ly [facility]) Smoking 2019 12:00:00 AM EDT Never Smoker completed Never S moker eCW1 ([facility]ly [facility]) Vital Signs ID Date Data Source UNK Name Value Range Interpretation Code Description Data Source(s) Diastolic blood pressure 84 mm[Hg] 84 mm[Hg] eCW1 ([facility]) Systolic blood pressure 140 mm[Hg] 140 mm[Hg] e CW1 ([facility]) Body temperature [degF] eCW1 ([facility]) Respiratory rate 18 /min 18 /min eCW1 ([facility]) Heart rate 86 /min 86 /min eCW1 ([facility]) Body mass index (BMI) [Ratio] 30.46 kg/m2 30.46 kg/m2 eCW1 ([facility]) Body height 60 [in_i] 60 [in_i] eCW1 ([facility]) Body weight 156 [lb_av] 156 [lb_av] eCW1 ([facility]) Body surface area Derived from formula 1.67 m2 1.67 m2 MEDENT ([facility], ) Body weight 69.854 kg 69.854 kg MEDENT ([facility] [place] body weight 100 [lb_av] 100 [lb_av] MEDEN T ([facility], ) Body mass index (BMI) [Ratio] 30.1 kg/m2 30.1 k g/m2 MEDENT ([facility]) Body weight 154.00 [lb_av] 154.00 [lb_av] MEDEN T ([facility]) Body height 60 [in_i] 60 [in_i] MEDENT ([facility]) 5'0" Diastolic blood pressure 82 mm[Hg] 82 mm[Hg] MEDENT ([facility]) Systolic blood pressure 132 mm[Hg] 132 mm[Hg] M EDENT ([facility]) Diastolic blood pressure 70 mm[Hg] 70 mm[Hg] eCW1 ([facility]) Systolic blood pressure 122 mm[Hg] 122 mm[Hg] e CW1 ([facility]) Body temperature 96.7 [degF] 96.7 [degF] eCW1 ( [facility]) Respiratory rate 20 /min 20 /min eCW1 ([facility]) Heart rate 80 /min 80 /min eCW1 ([facility]) Body mass index (BMI) [Ratio] 30.66 kg/m2 30.66 kg/m2 W1 ([facility]) Body height 60 [in_i] 60 [in_i] eCW1 ([facility]) Body weight 157 [lb_av] 157 [lb_av] eCW1 ([facility]) Diastolic blood pressure 76 mm[Hg] 76 mm[Hg] eCW1 ([facility]) Systolic blood pressure 122 mm[Hg] 122 mm[Hg] e CW1 ([facility]) Body temperature 97.6 [degF] 97.6 [degF] eCW1 ( [facility]) Respiratory rate 18 /min 18 /min eCW1 ([facility]) Heart rate 80 /min 80 /min eCW1 ([facility]) Body mass index (BMI) [Ratio] 30.03 kg/m2 30.03 kg/m2 W1 ([facility]) Body height 60 [in_i] 60 [in_i] eCW1 (Critical [facility] hospital) Body weight 153.8 [lb_av] 153.8 [lb_av] eCW1 ([facility]) Diastolic blood pressure 78 mm[Hg] 78 mm[Hg] eCW1 ([facility]) Systolic blood pressure 138 mm[Hg] 138 mm[Hg] e CW1 ([facility]) Body temperature 98 [degF] 98 [degF] eCW1 ([facility]) Respiratory rate 18 /min 18 /min eCW1 ([facility]) Heart rate 86 /min 86 /min eCW1 ([facility]) Body mass index (BMI) [Ratio] 29.68 kg/m2 29.68 kg/m2 eCW1 ([facility]) Body height 60 [in_i] 60 [in_i] eCW1 (Critical [facility] hospital) Body weight 152 [lb_av] 152 [lb_av] eCW1 ([facility]) Diastolic blood pressure 82 mm[Hg] 82 mm[Hg] eCW1 ([facility]) Systolic blood pressure 124 mm[Hg] 124 mm[Hg] e CW1 (Formerly [facility]) Body mass index (BMI) [Ratio] 30.66 kg/m2 30.66 kg/m2 eCW1 (Formerly [facility]) Body height 60 [in_us] 60 [in_us] eCW1 ([facility]) Body weight Measured 157 [lb_av] 157 [lb_av] eC W1 (Formerly [facility]) Diastolic blood pressure 84 mm[Hg] 84 mm[Hg] eCW1 (Formerly [facility]) Systolic blood pressure 132 mm[Hg] 132 mm[Hg] e CW1 (Formerly [facility]) Body temperature 98 [degF] 98 [degF] eCW1 ([facility]) Respiratory rate 18 /min 18 /min eCW1 ([facility]) Heart rate 86 /min 86 /min eCW1 (Pending sale to [facility]) Body mass index (BMI) [Ratio] 30.46 kg/m2 30.46 kg/m2 eCW1 (Formerly [facility]) Body height 60 [in_us] 60 [in_us] eCW1 (Critical access hospital) Body weight Measured 156 [lb_av] 156 [lb_av] eC W1 (Formerly [facility]) Diastolic blood pressure 72 mm[Hg] 72 mm[Hg] eCW1 (Formerly [facility]) Systolic blood pressure 122 mm[Hg] 122 mm[Hg] e CW1 (Formerly [facility]) Body temperature 98.1 [degF] 98.1 [degF] eCW1 ( Formerly [facility]) Respiratory rate 18 /min 18 /min eCW1 ([facility]) Heart rate 94 /min 94 /min eCW1 (Pending sale to [facility]) Body mass index (BMI) [Ratio] 31.13 kg/m2 31.13 kg/m2 eCW1 (Formerly [facility]) Body height 60 [in_us] 60 [in_us] eCW1 (Critical access hospital) Body weight Measured 159.4 [lb_av] 159.4 [lb_av ] eCW1 (Formerly [facility]) Diastolic blood pressure 70 mm[Hg] 70 mm[Hg] eCW1 (Formerly [facility]) Systolic blood pressure 142 mm[Hg] 142 mm[Hg] e CW1 (Formerly [facility]) Body temperature 98.3 [degF] 98.3 [degF] eCW1 ( Formerly [facility]) Respiratory rate 18 /min 18 /min eCW1 ([facility]) Heart rate 86 /min 86 /min eCW1 (Pending sale to [facility]) Body mass index (BMI) [Ratio] 30.66 kg/m2 30.66 kg/m2 eCW1 (Formerly [facility]) Body height 60 [in_us] 60 [in_us] eCW1 (Critical access hospital) Body weight Measured 157 [lb_av] 157 [lb_av] eC W1 (Formerly [facility]) Patient Treatment Plan of Care Planned Activity Planned Date Details Description Data Source (s) tramadol hydrochloride 50 MG Oral Tablet 03/15/2020 12:00:00 AM EST eCW1 (Formerly [facility]) tramadol hydrochloride 50 MG Oral Tablet 03/15/2020 12:00:00 AM EST eCW1 (Formerly [facility]) tramadol hydrochloride 50 MG Oral Tablet 03/15/2020 12:00:00 AM EST eCW1 (Formerly [facility]) tramadol hydrochloride 50 MG Oral Tablet 03/15/2020 12:00:00 AM EST eCW1 (Formerly [facility]) tramadol hydrochloride 50 MG Oral Tablet 03/15/2020 12:00:00 AM EST eCW1 (Formerly [facility]) tramadol hydrochloride 50 MG Oral Tablet 03/15/2020 12:00:00 AM EST eCW1 (Formerly [facility]) Robaxin 500 MG 03/11/2020 12:00:00 AM EST eCW1 (Formerly [facility]) Diclofenac Sodium 0.01 MG/MG Topical Gel [Voltaren] 03/11/20 12:00:00 AM EST eCW1 (Formerly [facility]) Robaxin 500 MG 03/11/2020 12:00:00 AM EST eCW1 (Formerly [facility]) Diclofenac Sodium 0.01 MG/MG Topical Gel [Voltaren] 03/11/20 12:00:00 AM EST eCW1 (Formerly [facility]) Robaxin 500 MG 03/11/2020 12:00:00 AM EST eCW1 (Formerly [facility]) Diclofenac Sodium 0.01 MG/MG Topical Gel [Voltaren] 03/11/20 12:00:00 AM EST eCW1 (Formerly [facility]) Robaxin 500 MG 03/11/2020 12:00:00 AM EST eCW1 (Formerly [facility]) Diclofenac Sodium 0.01 MG/MG Topical Gel [Voltaren] 03/11/20 12:00:00 AM EST eCW1 (Formerly [facility]) Robaxin 500 MG 03/11/2020 12:00:00 AM EST eCW1 (Formerly [facility]) Diclofenac Sodium 0.01 MG/MG Topical Gel [Voltaren] 03/11/20 12:00:00 AM EST eCW1 (Formerly [facility]) Robaxin 500 MG 03/11/2020 12:00:00 AM EST eCW1 (Formerly [facility]) Diclofenac Sodium 0.01 MG/MG Topical Gel [Voltaren] 03/11/20 12:00:00 AM EST eCW1 (Formerly [facility]) Robaxin 500 MG 03/11/2020 12:00:00 AM EST eCW1 (Formerly [facility]) Diclofenac Sodium 0.01 MG/MG Topical Gel [Voltaren] 03/11/20 12:00:00 AM EST eCW1 (Formerly [facility]) Robaxin 500 MG 03/11/2020 12:00:00 AM EST eCW1 (Formerly [facility]) Diclofenac Sodium 0.01 MG/MG Topical Gel [Voltaren] 03/11/20 12:00:00 AM EST eCW1 (Formerly [facility]) NITROFURANTOIN, MACROCRYSTALS 25 MG / Ni trofurantoin, Monohydrate 75 MG Oral Capsule 2019 12:00:00 AM EDT eCW1 (Formerly [facility]) NITROFURANTOIN, MACROCRYSTALS 25 MG / Ni trofurantoin, Monohydrate 75 MG Oral Capsule 2019 12:00:00 AM EDT eCW1 (Formerly [facility]) NITROFURANTOIN, MACROCRYSTALS 25 MG / Ni trofurantoin, Monohydrate 75 MG Oral Capsule 2019 12:00:00 AM EDT eCW1 (Formerly [facility]) NITROFURANTOIN, MACROCRYSTALS 25 MG / Ni trofurantoin, Monohydrate 75 MG Oral Capsule 2019 12:00:00 AM EDT eCW1 (Formerly [facility]) NITROFURANTOIN, MACROCRYSTALS 25 MG / Ni trofurantoin, Monohydrate 75 MG Oral Capsule 2019 12:00:00 AM EDT eCW1 (Formerly [facility]) NITROFURANTOIN, MACROCRYSTALS 25 MG / Ni trofurantoin, Monohydrate 75 MG Oral Capsule 2019 12:00:00 AM EDT eCW1 (Formerly [facility]) Lisinopril 5 MG Oral Tablet 08/05/2019 12:00:00 AM EDT eCW1 (Formerly [facility]) Lisinopril 5 MG Oral Tablet 08/05/2019 12:00:00 AM EDT eCW1 (Formerly [facility]) Famotidine 20 MG Oral Tablet 06/03/2019 12:00:00 AM EST eCW1 (Formerly [facility]) PredniSONE 20 MG 05/05/2019 12:00:00 AM EST eCW1 (Formerly [facility]) Cefuroxime Axetil 500 MG 05/05/2019 12:00:00 AM EST eCW1 (Formerly [facility])
[2020-06-16] MEDS ORDERED: fentaNYL 100 MCG/2 ML INJECTION (J3010) As Ordered ONE (11:09)
--- NOTE | 2020-06-16 11:59 | ROOR ---
Patient Name: Lucy Bell Procedure Date: 06/16/2020 11:03 AM Date of : 1945 Age: 74 Room: [facility] Gender: Female Note Status: Finalized Procedure: Upper GI endoscopy Indications: Heartburn, Suspected gastro-esophageal reflux disease Providers: Mal Morrison MD Referring MD: Edward Araujo MD Requesting Provider: Medicines: Monitored Anesthesia Care Complications: No immediate complications. Procedure: Pre-Anesthesia Assessment: - Prior to the procedure, a History and Physical was performed, and patient medications and allergies were reviewed. The patient is competent. The risks and benefits of the procedure and the sedation options and risks were discussed with the patient. All questions were answered and informed consent was obtained. Patient identification and proposed procedure were verified by the physician, the nurse and the anesthesiologist in the procedure room. Mental Status Examination: alert and oriented. Airway Examination: normal oropharyngeal airway and neck mobility. Respiratory Examination: clear to auscultation. CV Examination: normal. Prophylactic Antibiotics: The patient does not require prophylactic antibiotics. Prior Anticoagulants: The patient has taken no previous anticoagulant or antiplatelet agents. ASA Grade Assessment: II - A patient with mild systemic disease. After reviewing the risks and benefits, the patient was deemed in satisfactory condition to undergo the procedure. The anesthesia plan was to use monitored anesthesia care (MAC). Immediately prior to administration of medications, the patient was re-assessed for adequacy to receive sedatives. The heart rate, respiratory rate, oxygen saturations, blood pressure, adequacy of pulmonary ventilation, and response to care were monitored throughout the procedure. The physical status of the patient was re-assessed after the procedure. The Endoscope was introduced through the mouth, and advanced to the second part of duodenum. The upper GI endoscopy was accomplished without difficulty. The patient tolerated the procedure well. Findings: LA Grade A (one or more mucosal breaks less than 5 mm, not extending between tops of 2 mucosal folds) esophagitis with no bleeding was found in the distal esophagus. Biopsies were taken with a cold forceps for histology. Verification of patient identification for the specimen was done by the physician and nurse using the patient's name, date and medical record number. Estimated blood loss was minimal. Patchy moderate inflammation characterized by erythema, friability and granularity was found in the gastric antrum. Biopsies were taken with a cold forceps for Helicobacter pylori testing. The duodenal bulb and second portion of the duodenum were normal. Impression: - LA Grade A reflux esophagitis. Rule out Chaudhry's esophagus. Biopsied. - Gastritis. Biopsied. - Normal duodenal bulb and second portion of the duodenum. Recommendation: - Patient has a contact number available for emergencies. The signs and symptoms of potential delayed complications were discussed with the patient. Return to normal activities tomorrow. Written discharge instructions were provided to the patient. - High fiber diet. - Continue present medications. - Await pathology results. - Follow an antireflux regimen. - Telephone GI clinic for pathology results in 2 weeks. - Return to primary care physician. Procedure Code(s): --- Professional --- 78765, Esophagogastroduodenoscopy, flexible, transoral; with biopsy, single or multiple Diagnosis Code(s): --- Professional --- K21.0, Gastro-esophageal reflux disease with esophagitis K29.70, Gastritis, unspecified, without bleeding R12, Heartburn CPT copyright 2019 [employer]. All rights reserved. The codes documented in this report are preliminary and upon building supervisor review may be revised to meet current compliance requirements. Mal Morrison MD Mal Morrison MD 06/16/2020 11:58:48 AM Electronically signed by Mal Morrison MD Number of Addenda: 0 Note Initiated On: 06/16/2020 11:03 AM Estimated Blood Loss: Estimated blood loss was minimal.
--- NOTE | 2020-06-16 12:03 | ROOR ---
Patient Name: Lucy Bell Procedure Date: 06/16/2020 11:04 AM Date of : 1945 Age: 74 Room: [facility] Gender: Female Note Status: Finalized Procedure: Colonoscopy Indications: Positive fecal immunochemical test Providers: Mal Morrison MD Referring MD: Edward Araujo MD Requesting Provider: Medicines: Monitored Anesthesia Care Complications: No immediate complications. Procedure: Pre-Anesthesia Assessment: - Prior to the procedure, a History and Physical was performed, and patient medications and allergies were reviewed. The patient is competent. The risks and benefits of the procedure and the sedation options and risks were discussed with the patient. All questions were answered and informed consent was obtained. Patient identification and proposed procedure were verified by the physician, the nurse and the anesthesiologist in the procedure room. Mental Status Examination: alert and oriented. Airway Examination: normal oropharyngeal airway and neck mobility. Respiratory Examination: clear to auscultation. CV Examination: normal. Prophylactic Antibiotics: The patient does not require prophylactic antibiotics. Prior Anticoagulants: The patient has taken no previous anticoagulant or antiplatelet agents. ASA Grade Assessment: II - A patient with mild systemic disease. After reviewing the risks and benefits, the patient was deemed in satisfactory condition to undergo the procedure. The anesthesia plan was to use monitored anesthesia care (MAC). Immediately prior to administration of medications, the patient was re-assessed for adequacy to receive sedatives. The heart rate, respiratory rate, oxygen saturations, blood pressure, adequacy of pulmonary ventilation, and response to care were monitored throughout the procedure. The physical status of the patient was re-assessed after the procedure. The Colonoscope was introduced through the anus and advanced to the terminal ileum, with identification of the appendiceal orifice and IC valve. The colonoscopy was performed without difficulty. The patient tolerated the procedure well. The quality of the bowel preparation was good. The terminal ileum, ileocecal valve, appendiceal orifice, and rectum were photographed. Scope insertion time was 2 minutes. Scope withdrawal time was 8 minutes. The total duration of the procedure was 10 minutes. Findings: The perianal and digital rectal examinations were normal. The terminal ileum appeared normal. A 3 mm polyp was found in the recto-sigmoid colon. The polyp was sessile. The polyp was removed with a cold biopsy forceps. Resection and retrieval were complete. Verification of patient identification for the specimen was done by the physician and nurse using the patient's name, date and medical record number. Estimated blood loss was minimal. Multiple small and large-mouthed diverticula were found from sigmoid to ascending colon. There was evidence of diverticular spasm. Yoli-diverticular erythema was seen. There was no evidence of diverticular bleeding. Non-bleeding external and internal hemorrhoids were found during retroflexion. The hemorrhoids were large. Impression: - The examined portion of the ileum was normal. - One 3 mm polyp at the recto-sigmoid colon, removed with a cold biopsy forceps. Resected and retrieved. - Severe diverticulosis from sigmoid to ascending colon. There was evidence of diverticular spasm. Yoli-diverticular erythema was seen. There was no evidence of diverticular bleeding. - Non-bleeding external and internal hemorrhoids. Recommendation: - Patient has a contact number available for emergencies. The signs and symptoms of potential delayed complications were discussed with the patient. Return to normal activities tomorrow. Written discharge instructions were provided to the patient. - High fiber diet. - Continue present medications. - Await pathology results. - Repeat colonoscopy in 5 years for surveillance based on pathology results and depending on clinical and functional status. - Telephone GI clinic for pathology results in 2 weeks. - Return to primary care physician. Procedure Code(s): --- Professional --- 46875, Colonoscopy, flexible; with biopsy, single or multiple Diagnosis Code(s): --- Professional --- K64.8, Other hemorrhoids K63.5, Polyp of colon R19.5, Other fecal abnormalities K57.30, Diverticulosis of large intestine without perforation or abscess without bleeding CPT copyright 2019 [employer]. All rights reserved. The codes documented in this report are preliminary and upon ocean export agent review may be revised to meet current compliance requirements. Mal Morrison MD Mal Morrison MD 06/16/2020 12:02:54 PM Electronically signed by Mal Morrison MD Number of Addenda: 0 Note Initiated On: 06/16/2020 11:04 AM Estimated Blood Loss: Estimated blood loss was minimal.
[2020-06-16 12:15] VITALS: BP 131/70
== END 2020-06-16 12:24 | disposition home or self-care (01) ==
LOC: M OPP 09:00
PROVIDERS: ATTEND Internal Medicine Gastroenterology
DX: K63.5 Polyp of colon (principal); K57.30 Diverticulosis of large intestine without perforation or abscess without bleeding; K64.8 Other hemorrhoids; R19.5 Other fecal abnormalities; K21.00 Gastro-esophageal reflux disease with esophagitis, without bleeding; K29.70 Gastritis, unspecified, without bleeding; R12 Heartburn; E11.9 Type 2 diabetes mellitus without complications; G47.30 Sleep apnea, unspecified; Z79.899 Other long term (current) drug therapy; Z91.040 Latex allergy status
CPT/HCPCS: 43239; 45380; 88305; J3010

== ENCOUNTER → 2020-07-11 | Outpatient (CLI) | payer MEDICARE ==
[~2020-07-11] MED LIST changes: -LIDOCAINE 2% 100MG/5ML SDV (FOR ANES.) As Ordered ONE; -NS 1,000 ML IV ONE; -propofoL 500 MG/50 ML VIAL As Ordered ONE
[2020-07-11 12:03] LABS: BASO # 0.1 10^3/uL (0.0-0.2); BASO % 0.9 % (0.0-1.0); EOS # 0.7 10^3/uL (0.0-0.5); EOS % 7.4 % (0.0-3.0); HEMATOCRIT 35.6 % (36.0-47.0); HEMOGLOBIN 11.2 g/dl (12.0-15.5); LYMPH # 2.7 10^3/uL (1.5-5.0); LYMPH % 30.6 % (24.0-44.0); MEAN CORPUSCULAR HEMOGLOBIN 28.8 pg (27.0-33.0); MEAN CORPUSCULAR HGB CONC 31.5 g/dl (32.0-36.5); MEAN CORPUSCULAR VOLUME 91.5 fl (80.0-96.0); MONO # 0.8 10^3/uL (0.0-0.8); MONO % 9.2 % (2.0-8.0); NEUTROPHILS # 4.6 10^3/uL (1.5-8.5); NEUTROPHILS % 51.6 % (36.0-66.0); PLATELET COUNT, AUTOMATED 399 10^3/uL (150-450); RED BLOOD COUNT 3.89 10^6/uL (4.00-5.40); WHITE BLOOD COUNT 8.8 10^3/uL (4.0-10.0)
[2020-07-11 13:02] LABS: PERCENT SATURATION 11.8 % (13.2-45.0)
== END ==
LOC: M PLALAB 08:01
PROVIDERS: ATTEND Physician Assistant Medical
DX: D64.9 Anemia, unspecified (principal)

== ENCOUNTER → 2020-07-19 | Outpatient (CLI) | payer MEDICARE ==
--- NOTE | 2020-07-19 11:22 | REPPI ---
INDICATION: M25.512 PAIN IN LEFT SHOULDER COMPARISON: None. TECHNIQUE: Internal rotation, external rotation, and Y view. FINDINGS: Subchondral cystic changes of the distal clavicle along with subtle cortical irregularities of the acromion are appreciated. Subtle cortical irregularity and mild spurring to the humeral head noted. The subacromial space is decreased. No periarticular calcifications are identified. No acute fracture or dislocation. IMPRESSION: Moderate arthritic degenerative changes as noted above. <Electronically signed by Kristian Cueva > 07/19/20 [id number]
== END ==
LOC: M PLAIMG 08:49
PROVIDERS: ATTEND Nurse Practitioner Adult Health
DX: M19.012 Primary osteoarthritis, left shoulder (principal); M25.512 Pain in left shoulder
CPT/HCPCS: 73030; G0463

== ENCOUNTER → 2020-08-19 | Outpatient (CLI) | payer MEDICARE ==
--- NOTE | 2020-08-19 11:00 | REP ---
INDICATION: PAIN LT SHOULDER. COMPARISON: Comparison radiographs are from 19 July 2020.. TECHNIQUE: Axial, oblique coronal, and oblique sagittal imaging planes utilized. T1 and T2 weighted scans are included. At the referring clinician's request, 7 mL of intravenous gadolinium was administered and post gadolinium enhanced T1 fat sat imaging was acquired. FINDINGS: Cortical and medullary bone signal intensity are normal. There is superior subluxation of the humeral head relative to the glenoid with narrowing of the subacromial space. There is complete retracted supraspinatus cuff tear. There is skeletal muscle atrophy in the supraspinatus muscle. There is a moderate glenohumeral joint effusion. A there is moderate osteoarthritis at the acromioclavicular joint with hypertrophy and subcortical cyst formation. Subacromial subdeltoid bursal effusion is seen. There is fraying of the posterior cartilaginous labrum. The biceps tendon is not well seen. There is tendinosis in the subscapularis tendon. Infraspinatus tendon appears intact. On postcontrast images there is synovial thickening and synovial contrast enhancement consistent with chronic synovitis. No other significant contrast enhancement is appreciated. IMPRESSION: Large retracted full-thickness rotator cuff tear with obliteration of the subacromial space. Glenohumeral and subacromial subdeltoid bursal effusion. AC joint osteoarthritis. Subscapularis tendinosis. Biceps tendon poorly seen. Evidence of chronic synovitis. <Electronically signed by Raghav Borja > 08/19/20 [id number]
== END ==
LOC: M RAD 08:58
PROVIDERS: ATTEND Nurse Practitioner Adult Health
DX: M75.122 Complete rotator cuff tear or rupture of left shoulder, not specified as traumatic (principal); M19.012 Primary osteoarthritis, left shoulder; M25.512 Pain in left shoulder

== ENCOUNTER → 2020-09-21 | Outpatient (CLI) | payer MEDICARE ==
[2020-09-21 13:38] LABS: BASO % 0.5 % (0.0-1.0); EOS # 0.6 10^3/uL (0.0-0.5); HEMOGLOBIN 10.7 g/dl (12.0-15.5); LYMPH # 2.7 10^3/uL (1.5-5.0); LYMPH % 31.3 % (24.0-44.0); MEAN CORPUSCULAR HEMOGLOBIN 28.3 pg (27.0-33.0); MEAN CORPUSCULAR HGB CONC 30.6 g/dl (32.0-36.5); MEAN CORPUSCULAR VOLUME 92.6 fl (80.0-96.0); MONO # 0.8 10^3/uL (0.0-0.8); NEUTROPHILS # 4.4 10^3/uL (1.5-8.5); NEUTROPHILS % 51.8 % (36.0-66.0); PLATELET COUNT, AUTOMATED 350 10^3/uL (150-450); RED BLOOD COUNT 3.78 10^6/uL (4.00-5.40); WHITE BLOOD COUNT 8.6 10^3/uL (4.0-10.0)
[2020-09-21 14:13] LABS: PERCENT SATURATION 13.4 % (13.2-45.0)
== END ==
LOC: M PLALAB 09:25
PROVIDERS: ATTEND Physician Assistant Medical
DX: D64.9 Anemia, unspecified (principal)
CPT/HCPCS: 36415; 83550; 85025; G0463

== ENCOUNTER → 2020-11-03 | Outpatient (CLI) | payer MEDICARE ==
[2020-11-03 11:17] LABS: BASO # 0.1 10^3/uL (0.0-0.2); BASO % 0.8 % (0.0-1.0); EOS # 0.4 10^3/uL (0.0-0.5); EOS % 4.9 % (0.0-3.0); HEMATOCRIT 34.9 % (36.0-47.0); HEMOGLOBIN 10.8 g/dl (12.0-15.5); LYMPH # 2.7 10^3/uL (1.5-5.0); LYMPH % 34.1 % (24.0-44.0); MEAN CORPUSCULAR HEMOGLOBIN 28.3 pg (27.0-33.0); MEAN CORPUSCULAR HGB CONC 30.9 g/dl (32.0-36.5); MEAN CORPUSCULAR VOLUME 91.4 fl (80.0-96.0); MONO # 0.8 10^3/uL (0.0-0.8); MONO % 9.9 % (2.0-8.0); NEUTROPHILS # 3.9 10^3/uL (1.5-8.5); NEUTROPHILS % 49.8 % (36.0-66.0); PLATELET COUNT, AUTOMATED 360 10^3/uL (150-450); RED BLOOD COUNT 3.82 10^6/uL (4.00-5.40); WHITE BLOOD COUNT 7.9 10^3/uL (4.0-10.0)
[2020-11-03 11:45] LABS: PERCENT SATURATION 11.4 % (13.2-45.0)
[2020-11-03 11:51] LABS: FOLATE 18.2 NG/ML
== END ==
LOC: M PLALAB 07:57
PROVIDERS: ATTEND Internal Medicine Gastroenterology
DX: D50.9 Iron deficiency anemia, unspecified (principal)

== ENCOUNTER 2021-01-01 18:03 | Inpatient (IN) | payer MEDICARE ==
[~2021-01-01] VITALS: Ht 152.4 cm; Wt 73.0 kg
[2021-01-01 18:49] LABS: BASO # 0.1 10^3/uL (0.0-0.2); BASO % 0.4 % (0.0-1.0); EOS % 0.2 % (0.0-3.0); HEMATOCRIT 38.8 % (36.0-47.0); HEMOGLOBIN 12.5 g/dl (12.0-15.5); LYMPH # 1.7 10^3/uL (1.5-5.0); LYMPH % 8.7 % (24.0-44.0); MEAN CORPUSCULAR HEMOGLOBIN 28.8 pg (27.0-33.0); MEAN CORPUSCULAR HGB CONC 32.2 g/dl (32.0-36.5); MEAN CORPUSCULAR VOLUME 89.4 fl (80.0-96.0); MONO # 1.8 10^3/uL (0.0-0.8); MONO % 8.8 % (2.0-8.0); NEUTROPHILS # 16.2 10^3/uL (1.5-8.5); NEUTROPHILS % 81.2 % (36.0-66.0); PLATELET COUNT, AUTOMATED 429 10^3/uL (150-450); RED BLOOD COUNT 4.34 10^6/uL (4.00-5.40)
[2021-01-01 19:03] LABS: ALBUMIN 3.8 GM/DL (3.2-5.2); ALT/SGPT 28 U/L (12-78); BILIRUBIN,DIRECT 0.2 MG/DL (0.0-0.2); BILIRUBIN,TOTAL 0.6 MG/DL (0.2-1.0); BLOOD UREA NITROGEN 43 MG/DL (7-18); CALCIUM LEVEL 10.1 MG/DL (8.8-10.2); CARBON DIOXIDE LEVEL 22 MEQ/L (21-32); CHLORIDE LEVEL 107 MEQ/L (98-107); CK-MB VALUE MASS 7.4 NG/ML (<3.6); CPK CREATINE PHOSPHOKINASE 619 U/L (26-192); CREATININE FOR GFR 0.84 MG/DL (0.55-1.30); FREE T4 1.03 NG/DL (0.76-1.46); GLOMERULAR FILTRATION RATE > 60.0 (>39); GLUCOSE, FASTING 120 MG/DL (70-100); POTASSIUM SERUM 3.7 MEQ/L (3.5-5.1); SODIUM LEVEL 142 MEQ/L (136-145); THYROID STIMULATING HORMONE 0.938 uIU/ML (0.358-3.740); TOTAL PROTEIN 8.2 GM/DL (6.4-8.2); TROPONIN I < 0.02 NG/ML (< 0.10)
[2021-01-01 19:12] LABS: WHITE BLOOD COUNT 19.9 10^3/uL (4.0-10.0)
[2021-01-01] MEDS ORDERED: MORPHINE 4 MG/ML 1ML VIAL/SYRINGE (J2270) IV PRN (19:50)
[2021-01-01] MEDS ORDERED: NS 1,000 ML IV ONE ×2 (19:50→23:00)
[2021-01-01] MEDS ORDERED: ONDANSETRON 4MG/2ML VIAL IV ONE (19:50)
--- NOTE | 2021-01-01 20:19 | ECGEPIP ---
[facility] - ED Test Date: 2021-01-01 Pat Name: KINSEY URIBE Department: Room: - Gender: Female [employer] Spreader: CRISTO : 1945 Requested By: HARSH Betancourt Order Number: [id number] Reading MD: Madai Wei Measurements Intervals [place] Rate: 109 P: 32 MS: 142 QRS: -31 QRSD: 84 T: 44 QT: 352 QTc: 474 Interpretive Statements Sinus tachycardia Left axis deviation Nonspecific ST and T wave abnormality baseline artifact may affect interpretation No prior Electronically Signed on 01-01-2021 20:19:09 EDT by Madai Wei
--- NOTE | 2021-01-01 21:01 | REPVR ---
PROCEDURE INFORMATION: Exam: CT Lumbar Spine Without Contrast Exam date and time: 01/01/2021 7:10 PM Age: 75 years old Clinical indication: Injury or trauma; Fall; Blunt trauma (contusions or hematomas) TECHNIQUE: Imaging protocol: Computed tomography images of the lumbar spine without contrast. Radiation optimization: All CT scans at this facility use at least one of these dose optimization techniques: automated exposure control; mA and/or kV adjustment per patient size (includes targeted exams where dose is matched to clinical indication); or iterative reconstruction. COMPARISON: 1. CT ABD PELVIS WITH CONTRAST 2017-10-29 15:09 2. [place] ABDOMEN 1 VIEW (KUB) 2018-08-14 12:49 FINDINGS: Vertebrae: Moderate levoconvex lumbar curvature. L2-L3 left lateral 6 mm translational subluxation. L4-L5 3 mm rightward lateral translational subluxation. Maintained vertebral body heights. T12-L3 vertebral sclerosis. Discs/Spinal canal/Neural foramina: Multilevel degenerative disc and joint disease most severe at L2-L3 with moderate spinal stenosis. Multilevel moderate severe foraminal stenosis. Stomach and bowel: Mild diverticulosis coli. Soft tissues: Unremarkable. IMPRESSION: No acute abnormality. Electronically signed by: Kody Avila On 01/01/2021 21:00:55 PM
--- NOTE | 2021-01-01 21:02 | REPVR ---
PROCEDURE INFORMATION: Exam: CT Head Without Contrast Exam date and time: 01/01/2021 7:10 PM Age: 75 years old Clinical indication: Injury or trauma; Fall; Blunt trauma (contusions or hematomas) TECHNIQUE: Imaging protocol: Computed tomography of the head without contrast. Radiation optimization: All CT scans at this facility use at least one of these dose optimization techniques: automated exposure control; mA and/or kV adjustment per patient size (includes targeted exams where dose is matched to clinical indication); or iterative reconstruction. COMPARISON: No relevant prior studies available. FINDINGS: Brain: There is no evidence of intracranial bleed. The patient has bilateral earrings in place and there is severe artifact through the cerebellum making interpretation of this region of the cerebellum impossible. The hearing is should be removed and the CT regarding the cerebellum repeated for clarification. Cerebral ventricles: There is enlargement of the lateral ventricles which could be secondary to atrophy or a communicating type hydrocephalus. Clinical correlation would be important. Paranasal sinuses: Clear paranasal sinuses. Mastoid air cells: Clear mastoid air cells. Orbital cavity: Symmetric orbits. Bones/joints: There is no evidence of fracture. Soft tissues: There is no evidence of soft tissue swelling. IMPRESSION: 1. No evidence of fracture morbidly. 2. Enlargement of the ventricles which could be secondary to atrophy or a communicating type hydrocephalus and clinical correlation would be important. 3. Extreme artifact through the region of the cerebellum is making interpretation of this area impossible. The metallic earring should be removed and the scan should be repeated through the region of the cerebellum. Electronically signed by: Deondre Dupont On 01/01/2021 21:02:40 PM
[2021-01-01 21:03] LABS: RSV AMPLIFICATION NEGATIVE (NEGATIVE)
--- NOTE | 2021-01-01 21:09 | REPVR ---
PROCEDURE INFORMATION: Exam: CT Cervical Spine Without Contrast Exam date and time: 01/01/2021 7:10 PM Age: 75 years old Clinical indication: Injury or trauma; Fall; Blunt trauma TECHNIQUE: Imaging protocol: Computed tomography images of the cervical spine without contrast. Radiation optimization: All CT scans at this facility use at least one of these dose optimization techniques: automated exposure control; mA and/or kV adjustment per patient size (includes targeted exams where dose is matched to clinical indication); or iterative reconstruction. COMPARISON: [place] CHEST 2 VIEW 05/12/2019 10:58 AM FINDINGS: Vertebrae: Cervical vertebra and facet joints appear in alignment. There is no evidence of fracture. The dens appears intact in the lateral masses of C1 appear symmetric. There is severe sclerosis of the vertebral endplates C7-T1 with posterior osteophyte formation. There is mild to moderate posterior osteophyte formation C5-C6 and C6-C7. Soft tissues: There is no evidence of soft tissue swelling. Lungs: Normal appearing apical portions of the lung. IMPRESSION: No evidence of fracture. Electronically signed by: Deondre Dupont On 01/01/2021 21:09:00 PM
--- NOTE | 2021-01-01 22:47 | REPVR ---
PROCEDURE INFORMATION: Exam: XR Left Hip Exam date and time: 01/01/2021 10:27 PM Age: 75 years old Clinical indication: Hip pain; Left hip; Additional info: Trauma TECHNIQUE: Imaging protocol: XR Left hip. Views: 2 or 3 views hip with pelvis when performed. COMPARISON: CT ABD PELVIS WITH CONTRAST 10/29/2017 3:09 PM FINDINGS: Bones/joints: There is a fracture of the left superior pubic ramus. This may be acute or chronic. I would favor acute since this is not seen on the CT of 2018 or the plain films of 2019. Patient can perform internal and external rotation of the left hip. Possible hairline fracture of the left inferior pubic ramus. Soft tissues: Unremarkable. IMPRESSION: Fracture of the left superior pubic ramus which is probably acute. This is not seen on the plain films of 2019. A CT scan would be helpful for further evaluation of this. Electronically signed by: Deondre Dupont On 01/01/2021 22:47:11 PM
--- NOTE | 2021-01-01 22:49 | REPVR ---
PROCEDURE INFORMATION: Exam: XR Chest Exam date and time: 01/01/2021 10:27 PM Age: 75 years old Clinical indication: Shortness of breath; Additional info: Hip pain after fall TECHNIQUE: Imaging protocol: XR of the chest. Views: 1 view. COMPARISON: [place] CHEST 2 VIEW 05/12/2019 10:58 AM FINDINGS: Lungs: Discoid atelectasis is noted in the left lung base. Pleural spaces: There is no evidence of pneumothorax or pleural effusion. Heart/Mediastinum: The heart is normal in size. Bones/joints: Unremarkable. IMPRESSION: Discoid atelectasis left lung base. Electronically signed by: Deondre Dupont On 01/01/2021 22:49:26 PM
--- NOTE | 2021-01-01 23:43 | REPVR ---
PROCEDURE INFORMATION: Exam: CT Pelvis Without Contrast; Skeletal Exam date and time: 01/01/2021 11:03 PM Age: 75 years old Clinical indication: Abnormal findings; Abnormal imaging test; Additional info: Pubic rami fracture, rads request TECHNIQUE: Imaging protocol: Computed tomography images of the pelvis without contrast. Exam focused on the skeletal structures. Radiation optimization: All CT scans at this facility use at least one of these dose optimization techniques: automated exposure control; mA and/or kV adjustment per patient size (includes targeted exams where dose is matched to clinical indication); or iterative reconstruction. COMPARISON: CT ABD PELVIS WITH CONTRAST 10/29/2017 3:09 PM FINDINGS: Stomach and bowel: There are multiple diverticula of the sigmoid colon. There is moderate constipation. Bladder: There is marked distention of the urinary bladder to near the level of the umbilicus. Bones/joints: There is a complex fracture of the left superior pubic ramus extending to the pubic symphysis. There may be a subtle cortical fracture of the inferior pubic ramus as well. Soft tissues: There is soft tissue swelling of the internal obturator muscle. There is no evidence of fracture of the left proximal femur. IMPRESSION: 1. Acute complex fracture of the left superior pubic ramus extending to the left pubic symphysis. Subtle cortical injury left inferior pubic ramus. Also soft tissue swelling. 2. Constipation. 3. Severe distention of the urinary bladder. Electronically signed by: Deondre Dupont On 01/01/2021 23:43:19 PM
[2021-01-02] MEDS ORDERED: MORPHINE 2 MG/ML 1ML VIAL (J2270) IV PRN (01:35)
[2021-01-02] MEDS ORDERED: ONDANSETRON 4MG/2ML VIAL IV PRN (01:35)
[2021-01-02] MEDS ORDERED: HOME MED LIST COMPLETE! XX SCH (02:40)
[2021-01-02 03:45] LABS: HEMOGLOBIN A1c 6.2 %
[2021-01-02 03:53] LABS: BLOOD UREA NITROGEN 43 MG/DL (7-18); CALCIUM LEVEL 8.9 MG/DL (8.8-10.2); CARBON DIOXIDE LEVEL 23 MEQ/L (21-32); CHLORIDE LEVEL 110 MEQ/L (98-107); CPK CREATINE PHOSPHOKINASE 697 U/L (26-192); CREATININE FOR GFR 0.77 MG/DL (0.55-1.30); GLOMERULAR FILTRATION RATE > 60.0 (>39); GLUCOSE, FASTING 106 MG/DL (70-100); MAGNESIUM LEVEL 2.3 MG/DL (1.8-2.4); NT-PRO BNP 413 PG/ML (<450); POTASSIUM SERUM 3.8 MEQ/L (3.5-5.1); SODIUM LEVEL 144 MEQ/L (136-145)
--- NOTE | 2021-01-02 04:23 | HPEPDOC ---
General Date of Admission 01/02/21 Date of Service: Jan 02, 2021 Chief Complaint Fall/On Floor For Days. Source: Patient History of Present Illness Lucy Bell is a 75-year-old female with significant history of GERD, hyperlipidemia and hypertension who presents after fall at home with left hip pain. Patient reports that she fell Saturday after she tripped on a boot in her garage and she fell forward hitting her face on the new car driver side mirror and falling on her left side on the ground. Patient reports that she felt instant severe left hip pain. Patient reports that she was able to slide herself forward to lay flat on her back but was unable to stand up. Unfortunately, as she lives alone she stayed Saturday night and Saturday night in the garage on the ground. Patient reports that she did have to urinate on herself a few times and she was in pain with an understandable sense of hopelessness since no neighbors around to call. Patient reports that she did have sensations of hallucinations during those 2 nights when her garage door was open. On Saturday, patient has a set time to visit with someone for a few hours and she is typically very punctual. When patient was a no-show this woman called around and showed up at the patient's house and found her in the garage on the ground. Patient arrived to the hospital around midday and thus almost 48 hours on the ground. Pt denies wagner, sinus congestion, sore throat, productive cough, sob, palpitations, chest pain, n/v/d, abdominal pain, sensory changes or syncope. Patient endorses generalized weakness and feeling "stiff" all over. Patient presently describes the hip pain as 0 but with movement increased to sharp intermittent severe pain. Home Medications Scheduled Gemfibrozil (Lopid) 600 Mg Tablet, 600 MG PO BID, (Reported) Lisinopril (Lisinopril) 5 Mg Tablet, 5 MG PO BID, (Reported) Scheduled PRN Famotidine (Famotidine) 20 Mg Tablet, 20 MG PO PRN PRN for HEARTBURN, (Reported) Allergies Coded Allergies: latex (Verified Allergy, Intermediate, blisters, 06/09/20) Past Medical History Medical History GERD, dyslipidemia, hypertension Surgical History Cataract left eye, bladder lift, hernia repair Family History Significant Family History: No pertinent family hx Social History * Smoker: Denies Alcohol: Denies Drugs: denies Recent Travel/Sick Contacts: Denies: Recent travel, Recent sick contacts Psychosocial History: No pertinent psych hx [place] Her healthcare proxy is her friend Kenia and she does have a son named Lavelle Mosher. A-FIB/CHADSVASC A-FIB History Current/History of A-Fib/PAF?: No Current PO Anticoag Therapy: No Review of Systems Constitutional: Reports: Weakness, Fatigue; Denies: Chills, Fever, Night Sweats Eyes: Denies: Pain, Vision change ENT: Denies: Head Aches, Ear Pain, Dysphagia Skin: Denies: Rash, Lesions, Breakdown Pulmonary: Denies: Dyspnea, Cough Cardiovascular: Denies: Chest Pain, Palpitations, Orthopnea, Paroxysmal Noc. Dyspnea, Lt Headedness Gastrointestinal: Denies: Nausea, Vomiting, Abdominal Pain, Diarrhea Genitourinary: Denies: Dysuria, Frequency, Incontinence, Retention Hematologic: Denies: Bruising, Bleeding Excessively Musculoskeletal: Reports: Joint Pain; Denies: Neck Pain, Back Pain, Muscle Pain, Spasms Neurological: Denies: Weakness, Numbness, Change in speech, Confusion Psych: Reports: Anxiety, Other Psych (Hallucinations); Denies: Depression, Memory Issues Physical Examination General Exam: Positive: Alert, No Acute Distress Eye Exam: Positive: PERRLA, Conjunctiva & lids normal, EOMI; Negative: Sclera icteric ENT Exam: Positive: Atraumatic, Mucous membr. moist/pink, Pharynx Normal Neck Exam: Positive: Supple; Negative: JVD, thyromegaly Chest Exam: Positive: Clear to auscultation, Normal air movement Heart Exam: Positive: Rate Normal, Regular Rhythm, Normal S1, Normal S2; Negative: Murmurs, Rubs Telemetry: Positive: No significant arrhythmia Abdomen Exam: Positive: Normal bowel sounds, Soft; Negative: Tenderness, Hepatospenomegaly Extremity Exam: Positive: Normal pulses, Other (mild tenderness Left lateral upper hip); Negative: Clubbing, Cyanosis, Edema Skin Exam: Positive: Nl turgor and temperature; Negative: Breakdown, Lesion Neuro Exam: Positive: Normal Speech, Sensation Intact; Negative: Normal Gait Psych Exam: Positive: Mental status NL, Mood NL, Oriented x 3 Vital Signs Vital Signs Date Time Temp Pulse Resp B/P (MAP) Pulse Ox O2 Delivery O2 Flow Rate FiO2 9/13/21 00:46 94 16 98 Room Air 01/02/21 00:45 137/68 (91) 01/01/21 18:29 100.2 Laboratory Data Labs 24H Laboratory Tests 2 01/01/21 18:24: Immature Granulocyte % (Auto) 0.7, Neutrophils (%) (Auto) 81.2H, Lymphocytes (%) (Auto) 8.7L, Monocytes (%) (Auto) 8.8H, Eosinophils (%) (Auto) 0.2, Basophils (%) (Auto) 0.4, Neutrophils # (Auto) 16.2H, Lymphocytes # (Auto) 1.7, Monocytes # (Auto) 1.8H, Eosinophils # (Auto) 0.0, Basophils # (Auto) 0.1, Nucleated Red Blood Cells % (auto) 0.0, Anion Gap 13, Glomerular Filtration Rate > 60.0, Calcium Level 10.1, Total Bilirubin 0.6, Direct Bilirubin 0.2, Aspartate Amino Transf (AST/SGOT) 35, Alanine Aminotransferase (ALT/SGPT) 28, Alkaline Phosphatase 89, Total Creatine Kinase 619H, Creatine Kinase MB 7.4H, Creatine Kinase MB Relative Index 1.20, Troponin I < 0.02, Total Protein 8.2, Albumin 3.8, Albumin/Globulin Ratio 0.9L, Thyroid Stimulating Hormone (TSH) 0.938, Free Thyroxine 1.03 01/01/21 20:04: Coronavirus (COVID-19)(PCR) NEGATIVE, Influenza Type A (RT-PCR) NEGATIVE, Influenza Type B (RT-PCR) NEGATIVE, Respiratory Syncytial Virus (PCR) NEGATIVE 01/01/21 21:51: Urine Color YELLOW, Urine Appearance CLOUDYH, Urine pH 5.0, Urine Specific [place] 1.021, Urine Protein 2+H, Urine Glucose (UA) NEGATIVE, Urine Ketones 2+H, Urine Blood 1+H, Urine Nitrite NEGATIVE, Urine Bilirubin NEGATIVE, Urine Urobilinogen 0.2, Urine Leukocyte Esterase 3+H, Urine WBC (Auto) 135H, Urine RBC (Auto) 6H, Urine Hyaline Casts (Auto) 0, Urine Bacteria (Auto) 1+H, Urine Squamous Epithelial Cells 9, Urine Transitional Epithelial Cells 2, Urine Mucus (Auto) SMALL, Urine Sperm (Auto) , Urine Myoglobin POSITIVEH 01/02/21 01:35: CBC/BMP Laboratory Tests 01/01/21 18:24 Microbiology Microbiology 01/02/21 Blood Culture, Received Pending 01/01/21 Urine Culture, Received Pending Assessment/Plan 1. Left pubic ramus fracture secondary to fall: Patient endorses mechanical fall. Monitor patient, fall precaution Symptom management/supportive care with analgesics Bedrest Contacted Ortho for recommendations; he will review the CT scan in a.m. - appreciate further recommendations 2. Rhabdomyolysis secondary to fall and prolonged immobility in frail elder: CPK over 600 Plan for hydration and trend CPK, BMP 3. SIRS: Leuocytosis & tachycardia likely reactive. Chest x-ray nonacute. UA to be obtained. CT scan noted distention patient will be bladder scan and if needed Begum placed. Consider empiric coverage accordingly. 4. Head injury secondary to fall: Patient endorses hitting her right side of the face on the new car driver side mirror when she tripped and fell in the garage. No ov ert hematoma however patient does have a swollen front lip. She is alert and oriented x3 but did endorse having hallucinations during her time on the ground. CT head finding questionable given patient's earrings, but did note enlarged ventricles such as with hydrocephalus. -Plan for neurochecks every [address] head without earrings. 5. Constipation: Started Colace. Consider further therapies pending patient response 6. Hypertension: Monitor blood pressure in setting above with possible infection and pain medication use. Continue home medications once reconciled with parameters. 7. GERD: Protonix DVT prophylaxis: Heparin subcu CODE STATUS: Full. Patient reports that her next of kin is her son Lavelle Mosher but she has a healthcare proxy her friend Kenia Smart Disposition anticipate 2 midnight stay and home health physical therapy versus rehab Plan / VTE VTE Prophylaxis Ordered?: Yes SASHA MAC NP Jan 02, 2021 01:49 JOSE MONTERO MD Jan 02, 2021 05:27
[2021-01-02] MEDS: HEPARIN SOD (PORCINE) 5000UNITS/ML 1ML VIAL/SYRINGE SQ SCH ×3 (05:41→21:26)
[2021-01-02] MEDS: LR 1,000 ML IV SCH ×4 (05:46→22:47)
[2021-01-02] MEDS: DICLOFENAC EPOLAMINE 1.3 % PATCH TOP SCH ×3 (06:00→18:00)
[2021-01-02 08:11] LABS: BASO # 0.1 10^3/uL (0.0-0.2); BASO % 0.5 % (0.0-1.0); EOS # 0.1 10^3/uL (0.0-0.5); EOS % 0.8 % (0.0-3.0); HEMATOCRIT 33.9 % (36.0-47.0); HEMOGLOBIN 10.8 g/dl (12.0-15.5); LYMPH # 1.7 10^3/uL (1.5-5.0); LYMPH % 9.7 % (24.0-44.0); MEAN CORPUSCULAR HGB CONC 31.9 g/dl (32.0-36.5); MEAN CORPUSCULAR VOLUME 90.9 fl (80.0-96.0); MONO # 1.8 10^3/uL (0.0-0.8); MONO % 10.5 % (2.0-8.0); NEUTROPHILS # 13.5 10^3/uL (1.5-8.5); NEUTROPHILS % 77.7 % (36.0-66.0); PLATELET COUNT, AUTOMATED 358 10^3/uL (150-450); RED BLOOD COUNT 3.73 10^6/uL (4.00-5.40)
[2021-01-02 08:13] LABS: WHITE BLOOD COUNT 17.3 10^3/uL (4.0-10.0)
[2021-01-02] MEDS: DOCUSATE SODIUM 100MG CAPSULE PO SCH ×2 (08:26→21:27)
[2021-01-02] MEDS: PANTOPRAZOLE 40MG TAB (PROTONIX) PO SCH (08:26)
[2021-01-02] MEDS: ACETAMINOPHEN TAB 650MG DOSE (2X325MG) PO PRN ×3 (08:26→18:34)
[2021-01-02 08:27] LABS: BLOOD UREA NITROGEN 42 MG/DL (7-18); CALCIUM LEVEL 9.2 MG/DL (8.8-10.2); CARBON DIOXIDE LEVEL 21 MEQ/L (21-32); CHLORIDE LEVEL 111 MEQ/L (98-107); CREATININE FOR GFR 0.74 MG/DL (0.55-1.30); GLOMERULAR FILTRATION RATE > 60.0 (>39); GLUCOSE, FASTING 102 MG/DL (70-100); POTASSIUM SERUM 3.7 MEQ/L (3.5-5.1); SODIUM LEVEL 143 MEQ/L (136-145)
[2021-01-02] MEDS: lisinopriL 5 MG TAB PO SCH ×2 (08:27→21:27)
[2021-01-02 08:42] LABS: INR 1.15; PROTHROMBIN TIME 15.2 SECONDS (12.7-14.5)
[2021-01-02 08:43] LABS: PARTIAL THROMBOPLASTIN TIME 39.9 SECONDS (25.9-37.0)
--- NOTE | 2021-01-02 13:36 | CR.PDOC ---
General Date of Consultation: Jan 02, 2021 Consultation Complaint: Right-sided hip pain. Unable to weight-bear since a fall on 12/30/2020 History of presenting complaint :Lucy Bell is a 75-year-old female with significant history of GERD, hyperlipidemia and hypertension who presents after fall at home with left hip pain. Patient reports that she fell Saturday after she tripped on a boot in her garage and she fell forward hitting her face on the boom truck driver side mirror and falling on her left side on the ground. Patient reports that she felt instant severe left hip pain. Patient reports that she was able to slide herself forward to lay flat on her back but was unable to stand up. Unfortunately, as she lives alone she stayed Saturday night and Saturday night in the garage on the ground. Patient was seen at [facility]. CT scan of the pelvis show complex superior rami fracture. Of note, CT head limited exam with questionable hydrocephalus. CT C-spine nonacute, chest x-ray nonacute., CT lumbar nonacute, pelvis hip x-ray questionable fracture and CT pelvis positive complex left superior pubic ramus fracture and septal inferior fracture. WBCs 19.9, lactic 1.1, BUN 43, creatinine 0.77, CPK 619. Patient will be admitted for further evaluation management presenting concerns. Home Medications Scheduled Gemfibrozil (Lopid) 600 Mg Tablet, 600 MG PO BID, (Reported) Lisinopril (Lisinopril) 5 Mg Tablet, 5 MG PO BID, (Reported) Scheduled PRN Famotidine (Famotidine) 20 Mg Tablet, 20 MG PO PRN PRN for HEARTBURN, (Reported) Allergies Coded Allergies: latex (Verified Allergy, Intermediate, blisters, 06/09/20) Past Medical History Past Medical History Medical History GERD, dyslipidemia, hypertension Surgical History Cataract left eye, bladder lift, hernia repair Family History Significant Family History: No pertinent family hx Social History * Smoker: Denies Alcohol: Denies Drugs: denies Recent Travel/Sick Contacts: Denies: Recent travel, Recent sick contacts Psychosocial History: No pertinent psych hx [place] Her healthcare proxy is her friend Kenia and she does have a son named Lavelle Mosher. Review of Systems Constitutional: Reports: Weakness, Fatigue; Denies: Chills, Fever, Night Sweats Eyes: Denies: Pain, Vision change ENT: Denies: Head Aches, Ear Pain, Dysphagia Skin: Denies: Rash, Lesions, Breakdown Pulmonary: Denies: Dyspnea, Cough Cardiovascular: Denies: Chest Pain, Palpitations, Orthopnea, Paroxysmal Noc. Dyspnea, Lt Headedness Gastrointestinal: Denies: Nausea, Vomiting, Abdominal Pain, Diarrhea Genitourinary: Denies: Dysuria, Frequency, Incontinence, Retention Hematologic: Denies: Bruising, Bleeding Excessively Musculoskeletal: Reports: Joint Pain; Denies: Neck Pain, Back Pain, Muscle Pain, Spasms Neurological: Denies: Weakness, Numbness, Change in speech, Confusion Psych: Reports: Anxiety, Other Psych (Hallucinations); Denies: Depression, Memory Issues Physical Examination Physical Examination General Exam: Positive: Alert, No Acute Distress Eye Exam: Positive: PERRLA, Conjunctiva & lids normal, EOMI; Negative: Sclera icteric ENT Exam: Positive: Atraumatic, Mucous membr. moist/pink, Pharynx Normal Neck Exam: Positive: Supple; Negative: JVD, thyromegaly Chest Exam: Positive: Clear to auscultation, Normal air movement Heart Exam: Positive: Rate Normal, Regular Rhythm, Normal S1, Normal S2; Negative: Murmurs, Rubs Telemetry: Positive: No significant arrhythmia Abdomen Exam: Positive: Normal bowel sounds, Soft; Negative: Tenderness, Hepatospenomegaly Extremity Exam: Positive: Normal pulses, Other (mild tenderness Left lateral upper hip); Negative: Clubbing, Cyanosis, Edema' Patient lying in bed supine. Comfortable no acute distress Pain over the pubic rami with palpation. Pain with logroll of the leg. No pain palpation distally over the knee or ankle. Good pulses distally. Motor function of the left leg seems well-maintained but range of motion of the hip limited by pain. Right leg maintain passive range of motion. Motion causes pain on the left side. Grossly neurovascular intact. SILT bilaterally Skin Exam: Positive: Nl turgor and temperature; Negative: Breakdown, Lesion Neuro Exam: Positive: Normal Speech, Sensation Intact; Negative: Normal Gait Psych Exam: Positive: Mental status NL, Mood NL, Oriented x 3 Assessment. Acute left-sided pubic rami fracture. Fracture should heal over next 6 to 8 weeks. As fracture progresses pain will improve Plan: 1. Nonoperative management. Weightbearing as tolerated within the limits of her pain. She can weight-bear on her left leg within the limits of her pain. May require PT OT and home care. 2. Pain management as per internal medicine. 3. Follow-up at [facility] orthopedics in 6 weeks. Vital Signs/I&O Vital Signs Date Time Temp Pulse Resp B/P (MAP) Pulse Ox O2 Delivery O2 Flow Rate FiO2 01/02/21 05:00 98.1 89 16 147/63 (91) 97 Nasal Cannula 2.0 Laboratory Data Labs 24H Laboratory Tests 2 01/01/21 18:24: Immature Granulocyte % (Auto) 0.7, Neutrophils (%) (Auto) 81.2H, Lymphocytes (%) (Auto) 8.7L, Monocytes (%) (Auto) 8.8H, Eosinophils (%) (Auto) 0.2, Basophils (%) (Auto) 0.4, Neutrophils # (Auto) 16.2H, Lymphocytes # (Auto) 1.7, Monocytes # (Auto) 1.8H, Eosinophils # (Auto) 0.0, Basophils # (Auto) 0.1, Nucleated Red Blood Cells % (auto) 0.0, Anion Gap 13, Glomerular Filtration Rate > 60.0, Calcium Level 10.1, Total Bilirubin 0.6, Direct Bilirubin 0.2, Aspartate Amino Transf (AST/SGOT) 35, Alanine Aminotransferase (ALT/SGPT) 28, Alkaline Phosphatase 89, Total Creatine Kinase 619H, Creatine Kinase MB 7.4H, Creatine Kinase MB Relative Index 1.20, Troponin I < 0.02, Total Protein 8.2, Albumin 3.8, Albumin/Globulin Ratio 0.9L, Thyroid Stimulating Hormone (TSH) 0.938, Free Thyroxine 1.03 01/01/21 20:04: Coronavirus (COVID-19)(PCR) NEGATIVE, Influenza Type A (RT-PCR) NEGATIVE, Influenza Type B (RT-PCR) NEGATIVE, Respiratory Syncytial Virus (PCR) NEGATIVE 01/01/21 21:51: Urine Color YELLOW, Urine Appearance CLOUDYH, Urine pH 5.0, Urine Specific [place] 1.021, Urine Protein 2+H, Urine Glucose (UA) NEGATIVE, Urine Ketones 2+H, Urine Blood 1+H, Urine Nitrite NEGATIVE, Urine Bilirubin NEGATIVE, Urine Urobilinogen 0.2, Urine Leukocyte Esterase 3+H, Urine WBC (Auto) 135H, Urine RBC (Auto) 6H, Urine Hyaline Casts (Auto) 0, Urine Bacteria (Auto) 1+H, Urine Squamous Epithelial Cells 9, Urine Transitional Epithelial Cells 2, Urine Mucus (Auto) SMALL, Urine Sperm (Auto) , Urine Myoglobin POSITIVEH 01/02/21 01:35: Lactic Acid Level 1.1 01/02/21 02:35: Anion Gap 11, Glomerular Filtration Rate > 60.0, Estimated Mean Plasma Glucose 131H, Hemoglobin A1c 6.2, Calcium Level 8.9, Magnesium Level 2.3, Total Creatine Kinase 697H, ZN-[id number]-C-Type Natriuretic Peptide 413 01/02/21 07:35: Anion Gap 11, Glomerular Filtration Rate > 60.0, Calcium Level 9.2, Magnesium Level 2.3, Total Creatine Kinase 682H, Immature Granulocyte % (Auto) 0.8, Neutrophils (%) (Auto) 77.7H, Lymphocytes (%) (Auto) 9.7L, Monocytes (%) (Auto) 10.5H, Eosinophils (%) (Auto) 0.8, Basophils (%) (Auto) 0.5, Neutrophils # (Auto) 13.5H, Lymphocytes # (Auto) 1.7, Monocytes # (Auto) 1.8H, Eosinophils # (Auto) 0.1, Basophils # (Auto) 0.1, Nucleated Red Blood Cells % (auto) 0.0, Prothrombin Time 15.2H, Prothromb Time International Ratio 1.15, Activated Par tial Thromboplast Time 39.9H CBC/BMP Laboratory Tests 01/01/21 18:24 01/02/21 02:35 01/02/21 07:35 Microbiology Microbiology 01/02/21 Blood Culture, Received Pending 01/01/21 Urine Culture, Received Pending Allergies Coded Allergies: latex (Verified Allergy, Intermediate, blisters, 06/09/20) Home Medications Scheduled Gemfibrozil (Lopid) 600 Mg Tablet, 600 MG PO BID, (Reported) Lisinopril (Lisinopril) 5 Mg Tablet, 5 MG PO BID, (Reported) Scheduled PRN Famotidine (Famotidine) 20 Mg Tablet, 20 MG PO PRN PRN for HEARTBURN, (Reported) FIOR SARAH MD Jan 02, 2021 13:36
[2021-01-02 14:33] VITALS: BP 127/59
--- NOTE | 2021-01-02 16:20 | IPNPDOC ---
Subjective Date Seen The patient was seen on 01/02/21. Subjective Chief Complaint/HPI Mrs. Bell is a 75-year-old female with hypertension who presents with mechanical fall resulting in left ramus fracture. This morning she still has left hip pain. Otherwise, denies any fever, chest pain, dyspnea, or abdominal pain. Orthopedic surgery, Dr. Colbert, evaluated patient. Recommending weightbearing as tolerated. Objective Physical Examination General Exam: Positive: Alert, Cooperative Eye Exam: Negative: Sclera icteric Neck Exam: Positive: Supple Chest Exam: Positive: Clear to auscultation Heart Exam: Positive: Rate Normal, Regular Rhythm Abdomen Exam: Positive: Normal bowel sounds, Soft; Negative: Tenderness Extremity Exam: Positive: Other (mild tenderness Left lateral upper hip); Negative: Edema Neuro Exam: Positive: Normal Speech Psych Exam: Positive: Mental status NL, Mood NL Assessment /Plan Assessment Mrs. Bell is a 75-year-old female with hypertension who presents with mechanical fall resulting in left ramus fracture. Orthopedic surgery recomme nding conservative measures. Patient can be weightbearing as tolerated. Will order physical therapy. Plan/VTE VTE Prophylaxis Ordered?: Yes Plan 1. Acute complex fracture of the left superior pubic ramus Orthopedic surgery consulted, recommendation appreciated Weightbearing as tolerated PT ordered 2. Hyperlipidemia Continue gemfibrozil 3. Hypertension Continue lisinopril 4. Constipation Continue Colace 5. Bladder distention seen on imaging Ordered for bladder scan 6. DVT prophylaxis Subcu heparin Disposition: Pending PT evaluation VS, I&O, 24H, Fishbone Vital Signs/I&O Vital Signs Date Time Temp Pulse Resp B/P (MAP) Pulse Ox O2 Delivery O2 Flow Rate FiO2 01/02/21 14:33 98.3 79 18 127/59 (81) 95 Room Air 01/02/21 05:00 2.0 Laboratory Data 24H LABS Laboratory Tests 2 01/01/21 18:24: Immature Granulocyte % (Auto) 0.7, Neutrophils (%) (Auto) 81.2H, Lymphocytes (%) (Auto) 8.7L, Monocytes (%) (Auto) 8.8H, Eosinophils (%) (Auto) 0.2, Basophils (%) (Auto) 0.4, Neutrophils # (Auto) 16.2H, Lymphocytes # (Auto) 1.7, Monocytes # (Auto) 1.8H, Eosinophils # (Auto) 0.0, Basophils # (Auto) 0.1, Nucleated Red Blood Cells % (auto) 0.0, Anion Gap 13, Glomerular Filtration Rate > 60.0, Calcium Level 10.1, Total Bilirubin 0.6, Direct Bilirubin 0.2, Aspartate Amino Transf (AST/SGOT) 35, Alanine Aminotransferase (ALT/SGPT) 28, Alkaline Phosphatase 89, Total Creatine Kinase 619H, Creatine Kinase MB 7.4H, Creatine Kinase MB Relative Index 1.20, Troponin I < 0.02, Total Protein 8.2, Albumin 3 .8, Albumin/Globulin Ratio 0.9L, Thyroid Stimulating Hormone (TSH) 0.938, Free Thyroxine 1.03 01/01/21 20:04: Coronavirus (COVID-19)(PCR) NEGATIVE, Influenza Type A (RT-PCR) NEGATIVE, Influenza Type B (RT-PCR) NEGATIVE, Respiratory Syncytial Virus (PCR) NEGATIVE 01/01/21 21:51: Urine Color YELLOW, Urine Appearance CLOUDYH, Urine pH 5.0, Urine Specific [place] 1.021, Urine Protein 2+H, Urine Glucose (UA) NEGATIVE, Urine Ketones 2+H, Urine Blood 1+H, Urine Nitrite NEGATIVE, Urine Bilirubin NEGATIVE, Urine Urobilinogen 0.2, Urine Leukocyte Esterase 3+H, Urine WBC (Auto) 135H, Urine RBC (Auto) 6H, Urine Hyaline Casts (Auto) 0, Urine Bacteria (Auto) 1+H, Urine Squamous Epithelial Cells 9, Urine Transitional Epithelial Cells 2, Urine Mucus (Auto) SMALL, Urine Sperm (Auto) , Urine Myoglobin POSITIVEH 01/02/21 01:35: Lactic Acid Level 1.1 01/02/21 02:35: Anion Gap 11, Glomerular Filtration Rate > 60.0, Estimated Mean Plasma Glucose 131H, Hemoglobin A1c 6.2, Calcium Level 8.9, Magnesium Level 2.3, Total Creatine Kinase 697H, SC-Phh-I-Type Natriuretic Peptide 413 01/02/21 07:35: Anion Gap 11, Glomerular Filtration Rate > 60.0, Calcium Level 9.2, Magnesium Level 2.3, Total Creatine Kinase 682H, Immature Granulocyte % (Auto) 0.8, Neutrophils (%) (Auto) 77.7H, Lymphocytes (%) (Auto) 9.7L, Monocytes (%) (Auto) 10.5H, Eosinophils (%) (Auto) 0.8, Basophils (%) (Auto) 0.5, Neutrophils # (Au to) 13.5H, Lymphocytes # (Auto) 1.7, Monocytes # (Auto) 1.8H, Eosinophils # (Auto) 0.1, Basophils # (Auto) 0.1, Nucleated Red Blood Cells % (auto) 0.0, Prothrombin Time 15.2H, Prothromb Time International Ratio 1.15, Activated Partial Thromboplast Time 39.9H 01/02/21 13:35: Total Creatine Kinase 547H CBC/BMP Laboratory Tests 01/01/21 18:24 01/02/21 02:35 01/02/21 07:35 Microbiology Microbiology 01/02/21 Blood Culture, Received Pending 01/01/21 Urine Culture, Received Pending SADIE OWUSU DO Jan 02, 2021 16:20
[2021-01-02] MEDS: TAMSULOSIN 0.4 MG CAP PO SCH (21:27)
[2021-01-02 21:44] VITALS: BP 151/67
[2021-01-03] VITALS: BP 108/62
[2021-01-03] MEDS: ACETAMINOPHEN TAB 650MG DOSE (2X325MG) PO PRN (02:24)
[2021-01-03 04:00] VITALS: BP 109/61
[2021-01-03] MEDS: HEPARIN SOD (PORCINE) 5000UNITS/ML 1ML VIAL/SYRINGE SQ SCH ×3 (06:14→21:00)
[2021-01-03] MEDS: DICLOFENAC EPOLAMINE 1.3 % PATCH TOP SCH ×2 (06:15→18:07)
[2021-01-03 07:29] LABS: BASO # 0.1 10^3/uL (0.0-0.2); BASO % 0.4 % (0.0-1.0); EOS # 0.3 10^3/uL (0.0-0.5); EOS % 1.9 % (0.0-3.0); HEMATOCRIT 27.7 % (36.0-47.0); HEMOGLOBIN 9.2 g/dl (12.0-15.5); LYMPH # 1.9 10^3/uL (1.5-5.0); LYMPH % 14.1 % (24.0-44.0); MEAN CORPUSCULAR HEMOGLOBIN 29.4 pg (27.0-33.0); MEAN CORPUSCULAR HGB CONC 33.2 g/dl (32.0-36.5); MEAN CORPUSCULAR VOLUME 88.5 fl (80.0-96.0); MONO # 1.3 10^3/uL (0.0-0.8); MONO % 9.7 % (2.0-8.0); NEUTROPHILS # 9.9 10^3/uL (1.5-8.5); NEUTROPHILS % 73.5 % (36.0-66.0); PLATELET COUNT, AUTOMATED 284 10^3/uL (150-450); RED BLOOD COUNT 3.13 10^6/uL (4.00-5.40); WHITE BLOOD COUNT 13.4 10^3/uL (4.0-10.0)
[2021-01-03] MEDS ORDERED: SENOKOT S TAB PO PRN (07:30)
[2021-01-03] MEDS ORDERED: SENOKOT S TAB PO ONE (07:30)
[2021-01-03] MEDS ORDERED: PERCOCET 5MG/325MG TAB PO ONE (07:30)
[2021-01-03] MEDS ORDERED: MOM 30ML SUSPENSION UDC PO ONE (07:30)
[2021-01-03] MEDS ORDERED: MOM 30ML SUSPENSION UDC PO PRN (07:30)
[2021-01-03 08:05] VITALS: BP 113/54
[2021-01-03 08:08] LABS: BLOOD UREA NITROGEN 24 MG/DL (7-18); CALCIUM LEVEL 8.6 MG/DL (8.8-10.2); CARBON DIOXIDE LEVEL 24 MEQ/L (21-32); CHLORIDE LEVEL 106 MEQ/L (98-107); CPK CREATINE PHOSPHOKINASE 276 U/L (26-192); CREATININE FOR GFR 0.68 MG/DL (0.55-1.30); GLOMERULAR FILTRATION RATE > 60.0 (>39); GLUCOSE, FASTING 111 MG/DL (70-100); POTASSIUM SERUM 3.6 MEQ/L (3.5-5.1); SODIUM LEVEL 138 MEQ/L (136-145)
[2021-01-03] MEDS: LIDOCAINE 5% (LIDODERM) PATCH TD SCH (08:42)
[2021-01-03] MEDS: PERCOCET 5MG/325MG TAB PO SCH ×3 (08:43→20:55)
[2021-01-03] MEDS: lisinopriL 5 MG TAB PO SCH ×2 (09:00→20:57)
[2021-01-03] MEDS: DOCUSATE SODIUM 100MG CAPSULE PO SCH ×2 (09:15→20:54)
[2021-01-03] MEDS: PANTOPRAZOLE 40MG TAB (PROTONIX) PO SCH (09:15)
[2021-01-03] MEDS: LR 1,000 ML IV SCH (09:20)
[2021-01-03] MEDS: MIRALAX *UNIT DOSE* 17GM PACKET PO SCH ×2 (10:00→20:56)
--- NOTE | 2021-01-03 11:51 | IPN ---
PROGRESS NOTE DATE: 01/03/2021 This morning patient complains of 12/10 pain in her hip, and it is usually better, about a 7/10 when she is not moving, whereas when she tries to move she complains of severe pain when she is repositioned and requesting taking their time and gently moving her. She also complains of neck pain in the back of her neck without any radiation. No paresthesias or numbness, tingling sensation, or decrease in strength in her bilateral hands. Describes this as 5/10 pain all the time. She is able to sleep despite this pain. She was given intravenous (IV) morphine as needed but not enough. She complains of not having a bowel movement since last Saturday and would like to have some medications to make her have a bowel movement. Patient was found to have acute urinary retention and was given Flomax. OBJECTIVE: PHYSICAL EXAMINATION: VITAL SIGNS: Temperature 98.5, pulse 101, respiratory rate 17, blood pressure 109/61, 94% on room air. Telemetry shows sinus rhythm with tachycardia, ventricular rate of 79-101. GENERAL: Patient is awake, alert, oriented to person, place, and time, answering questions appropriately. Patient is in no distress. No cyanosis, pallor, icterus, or jaundice. HEENT: Extraocular muscles are intact. Normocephalic, atraumatic. Patient has moist mucous membranes. No jugular venous distention (JVD), thyromegaly, or cervical lymphadenopathy. LUNGS: Clear to auscultation. No wheezing, rales, or rhonchi. HEART: S1, S2, sinus rhythm. ABDOMEN: Soft, nontender, nondistended. Positive bowel sounds. EXTREMITIES: No cyanosis, clubbing, or any pitting edema. MUSCULOSKELETAL: Patient has 5/5 motor strength times four extremities. No sensory disturbance. She has pain with movement and could not be evaluated. Left upper hip has point tenderness. Laboratory data and imaging studies have been reviewed. ACTIVE MEDICATIONS: Flomax, lisinopril, Lopid, Protonix, Colace, Flector patch, heparin subcutaneous, morphine, lactated Ringer's (LR), and Tylenol. ASSESSMENT AND PLAN: This is a 75-year-old female admitted on 01/02/2021 with past medical history significant for dyslipidemia, hypertension, gastroesophageal reflux. Had a mechanical fall and was on the floor for many days, admitted for a left pubic rami fracture secondary to mechanical fall. Mild rhabdomyolysis secondary to prolonged immobilization. Systemic inflammatory response with leukocytosis and tachycardia, most likely reactive. Head injury secondary to fall, chronic constipation, hypertension, and reflux. ACTIVE ISSUES: 1. Left pubic rami fracture secondary to mechanical fall. Patient is on fall precautions. Physical therapy (PT)/occupational therapy (OT) have been consulted. Activity as tolerated. Fall precautions. PT/OT. Patient will be started on around-the clock pain medications with Percocet one tablet three times a day. Monitor for respiratory distress. Respiratory rate less than 12, altered mental status, or sedation, at which point those medications will be held. Morphine as needed for severe breakthrough pain. She is still on Flector patch every 12 hours. 2. Acute rhabdomyolysis secondary to mechanical fall and prolonged immobilization, currently on LR. Patient has normal creatinine and still maintained on lisinopril for blood pressure control. Current blood pressure is 109/61. Will put holding parameters on patient's lisinopril. 3. Constipation. Patient will be kept on Senokot and milk of magnesia as needed. 4. Hypertension. Currently controlled. Holding parameters on lisinopril for systolic pressure less than 130 or creatinine greater than 1.5. 5. Gastroesophageal reflux disease (GERD), on proton pump inhibitor (PPI). 6. Hyperlipidemia, on gemfibrozil 600 twice a day. 7, Urine retention. pvr 900ml. bladder scan q6hrs and intermittent cath if pvr>300ml. trial of flomax. DISPOSITION: Patient is being evaluated by physical therapy, occupational therapy. Patient is limited with her mobility secondary to pain control issues. MTDD
[2021-01-03 16:00] VITALS: BP 110/62
[2021-01-03] MEDS: TAMSULOSIN 0.4 MG CAP PO SCH (20:56)
[2021-01-03] MEDS: **NOTE PATIENT COMMENT** MISC XX SCH (21:00)
[2021-01-03 22:46] VITALS: BP 110/61
[2021-01-04 06:10] LABS: BASO % 0.4 % (0.0-1.0); EOS # 0.4 10^3/uL (0.0-0.5); EOS % 4.2 % (0.0-3.0); HEMATOCRIT 27.2 % (36.0-47.0); HEMOGLOBIN 8.8 g/dl (12.0-15.5); LYMPH # 2.1 10^3/uL (1.5-5.0); LYMPH % 20.7 % (24.0-44.0); MEAN CORPUSCULAR HEMOGLOBIN 28.9 pg (27.0-33.0); MEAN CORPUSCULAR HGB CONC 32.4 g/dl (32.0-36.5); MEAN CORPUSCULAR VOLUME 89.5 fl (80.0-96.0); MONO # 0.8 10^3/uL (0.0-0.8); MONO % 8.1 % (2.0-8.0); NEUTROPHILS # 6.8 10^3/uL (1.5-8.5); NEUTROPHILS % 66.1 % (36.0-66.0); PLATELET COUNT, AUTOMATED 286 10^3/uL (150-450); RED BLOOD COUNT 3.04 10^6/uL (4.00-5.40); WHITE BLOOD COUNT 10.3 10^3/uL (4.0-10.0)
[2021-01-04 06:19] VITALS: BP 124/70
[2021-01-04 06:34] LABS: BLOOD UREA NITROGEN 28 MG/DL (7-18); CALCIUM LEVEL 8.4 MG/DL (8.8-10.2); CARBON DIOXIDE LEVEL 26 MEQ/L (21-32); CHLORIDE LEVEL 105 MEQ/L (98-107); CREATININE FOR GFR 0.86 MG/DL (0.55-1.30); GLOMERULAR FILTRATION RATE > 60.0 (>39); GLUCOSE, FASTING 100 MG/DL (70-100); POTASSIUM SERUM 3.9 MEQ/L (3.5-5.1); SODIUM LEVEL 139 MEQ/L (136-145)
[2021-01-04] MEDS: HEPARIN SOD (PORCINE) 5000UNITS/ML 1ML VIAL/SYRINGE SQ SCH ×3 (06:36→21:58)
[2021-01-04] MEDS: DICLOFENAC EPOLAMINE 1.3 % PATCH TOP SCH ×2 (06:37→18:02)
[2021-01-04] MEDS: DOCUSATE SODIUM 100MG CAPSULE PO SCH ×2 (08:37→21:58)
[2021-01-04] MEDS: PANTOPRAZOLE 40MG TAB (PROTONIX) PO SCH (08:37)
[2021-01-04] MEDS: PERCOCET 5MG/325MG TAB PO SCH ×3 (08:38→18:03)
[2021-01-04] MEDS: MIRALAX *UNIT DOSE* 17GM PACKET PO SCH ×2 (08:39→21:58)
[2021-01-04] MEDS: LIDOCAINE 5% (LIDODERM) PATCH TD SCH (08:40)
[2021-01-04] MEDS: lisinopriL 5 MG TAB PO SCH ×2 (08:49→21:00)
[2021-01-04 09:07] VITALS: BP 126/68
[2021-01-04 14:00] VITALS: BP 130/66
--- NOTE | 2021-01-04 14:37 | IPN ---
PROGRESS NOTE DATE: 01/04/2021 SUBJECTIVE: Patient has not been out of bed yet, has not been working with physical therapy (PT), occupational therapy (OT). She says pain is 0/10 when she is not moving. Remains in bed this morning. No other new complaints. OBJECTIVE: VITAL SIGNS: Temperature 97.4, pulse 96, respiratory rate 15, blood pressure 126/68, 97% on room air. GENERAL: Patient is awake, alert, oriented to person, place and time, answering questions appropriately, no distress. HEENT: No cyanosis, jugular venous distention (JVD) or cervical lymphadenopathy. LUNGS: Clear to auscultation. No wheezing, rales or rhonchi. HEART: S1, S2. Sinus rhythm. ABDOMEN: Soft, nontender, nondistended. Positive bowel sounds. EXTREMITIES: No cyanosis or clubbing. LABORATORY DATA/IMAGING STUDIES/MICROBIOLOGY: Have been reviewed. ASSESSMENT: This is a 75-year-old female admitted 01/02/2021 with history of dyslipidemia, hypertension, reflux and mechanical floor and was on the floor sustaining a left pubic rami fracture as well as rhabdomyolysis. On arrival, patient had elevated white count, thought to be reactive. She had a head injury secondary to fall. IMPRESSION: 1. Left pubic rami fracture secondary to mechanical fall. No acute intervention is required surgically. Physical therapy (PT), occupational therapy (OT) as tolerated. Pain management with Percocet 1 tablet every 6 hours, morphine for breakthrough pain. Acute rehabilitation unit (ARU) consulted. 2. Acute rhabdomyolysis. Status post intravenous (IV) fluids with normal creatinine. IV fluids can be discontinued. 3. Constipation. On bowel regimen with Milk of Magnesia and magnesia. 4. Hypertension. Controlled. Holding parameters placed for systolic pressure less than 130. 5. Reflux. On proton pump inhibitor (PPI). 6. Hyperlipidemia. On gemfibrozil. 7. Urine retention. Currently on a trail of Flomax and bladder scan showed postvoid residual of greater than 900. Currently with catheter. MTDD
[2021-01-04] MEDS: **NOTE PATIENT COMMENT** MISC XX SCH (21:00)
[2021-01-04] MEDS: TAMSULOSIN 0.4 MG CAP PO SCH (21:58)
[2021-01-05] MEDS: PERCOCET 5MG/325MG TAB PO SCH ×2 (00:02→05:39)
[2021-01-05] MEDS: HEPARIN SOD (PORCINE) 5000UNITS/ML 1ML VIAL/SYRINGE SQ SCH ×3 (05:37→21:55)
[2021-01-05] MEDS: DICLOFENAC EPOLAMINE 1.3 % PATCH TOP SCH ×2 (06:00→17:25)
[2021-01-05 06:27] LABS: BASO # 0.1 10^3/uL (0.0-0.2); BASO % 0.4 % (0.0-1.0); EOS # 0.5 10^3/uL (0.0-0.5); EOS % 4.3 % (0.0-3.0); HEMATOCRIT 27.2 % (36.0-47.0); HEMOGLOBIN 8.7 g/dl (12.0-15.5); LYMPH % 17.7 % (24.0-44.0); MEAN CORPUSCULAR HEMOGLOBIN 28.7 pg (27.0-33.0); MEAN CORPUSCULAR VOLUME 89.8 fl (80.0-96.0); MONO # 0.9 10^3/uL (0.0-0.8); MONO % 7.8 % (2.0-8.0); NEUTROPHILS # 7.8 10^3/uL (1.5-8.5); NEUTROPHILS % 69.2 % (36.0-66.0); PLATELET COUNT, AUTOMATED 328 10^3/uL (150-450); RED BLOOD COUNT 3.03 10^6/uL (4.00-5.40); WHITE BLOOD COUNT 11.3 10^3/uL (4.0-10.0)
[2021-01-05 06:55] LABS: BLOOD UREA NITROGEN 26 MG/DL (7-18); CALCIUM LEVEL 9.2 MG/DL (8.8-10.2); CARBON DIOXIDE LEVEL 28 MEQ/L (21-32); CHLORIDE LEVEL 103 MEQ/L (98-107); CREATININE FOR GFR 0.74 MG/DL (0.55-1.30); GLOMERULAR FILTRATION RATE > 60.0 (>39); GLUCOSE, FASTING 100 MG/DL (70-100); POTASSIUM SERUM 4.2 MEQ/L (3.5-5.1); SODIUM LEVEL 138 MEQ/L (136-145)
--- NOTE | 2021-01-05 07:32 | IPNPDOC ---
Date Seen The patient was seen on 01/05/21. Progress Note SUBJECTIVE: w ambulation 10/10 pain despite q6hrs percocet. no LE weakness no other c/o OBJECTIVE: VITAL SIGNS: see below GENERAL: Patient is awake, alert, oriented to person, place and time, answering questions appropriately, no distress.no cyanosis or pallor HEENT: No cyanosis, jugular venous distention (JVD) or cervical lymphadenopathy. LUNGS: Clear to auscultation. No wheezing, rales or rhonchi. HEART: S1, S2. Sinus rhythm. ABDOMEN: Soft, nontender, nondistended. Positive bowel sounds. EXTREMITIES: No cyanosis or clubbing. LABORATORY DATA/IMAGING STUDIES/MICROBIOLOGY: Have been reviewed. ASSESSMENT: This is a 75-year-old female admitted 01/02/2021 with history of dyslipidemia, hypertension, reflux and mechanical floor and was on the floor sustaining a left pubic rami fracture as well as rhabdomyolysis. On arrival, patient had elevated white count, thought to be reactive. She had a head injury secondary to fall. IMPRESSION: 1. Left pubic rami fracture secondary to mechanical fall. No acute intervention is required surgically. Physical therapy (PT), occupational therapy (OT) as tolerated. Pain management with Percocet 1 tablet every 6 hours, morphine for breakthrough pain., but not much relief. will change to 1 percocet q4hrs and hold if pain is<5/10. Acute rehabilitation unit (ARU) consulted. 2. Acute rhabdomyolysis. Status post intravenous (IV) fluids with normal creatinine. IV fluids discontinued. normal creatinine. urine output adequate 3. Constipation. On bowel regimen with Milk of Magnesia and magnesia. 4. Hypertension. Controlled. Holding parameters placed for systolic pressure less than 130. 5. Reflux. On proton pump inhibitor (PPI). 6. Hyperlipidemia. On gemfibrozil. 7. Urine retention. Currently on a trail of Flomax and bladder scan showed postvoid residual of greater than 900. dispo: awaiting aru VS, I&O, 24H, Fishbone Vital Signs/I&O Vital Signs Date Time Temp Pulse Resp B/P (MAP) Pulse Ox O2 Delivery O2 Flow Rate FiO2 01/05/21 05:39 18 93 Room Air 01/04/21 21:00 127/66 01/04/21 14:00 99.1 106 01/02/21 05:00 2.0 I&O- Last 24 Hours up to 6 AM 01/05/21 06:00 Intake Total 4030 ml Output Total 6435 ml Balance -2405 ml Laboratory Data 24H LABS Laboratory Tests 2 01/05/21 05:47: Immature Granulocyte % (Auto) 0.6, Neutrophils (%) (Auto) 69.2H, Lymphocytes (%) (Auto) 17.7L, Monocytes (%) (Auto) 7.8, Eosinophils (%) (Auto) 4.3H, Basophils (%) (Auto) 0.4, Neutrophils # (Auto) 7.8, Lymphocytes # (Auto) 2.0, Monocytes # (Auto) 0.9H, Eosinophils # (Auto) 0.5, Basophils # (Auto) 0.1, Nucleated Red Blood Cells % (auto) 0.2H, Anion Gap 7L, Glomerular Filtration Rate > 60.0, Calcium Level 9.2 CBC/BMP Laboratory Tests 01/05/21 05:47 Microbiology Microbiology 01/02/21 Blood Culture - Preliminary, Resulted No Growth after 72 hours. All specime... 01/01/21 Urine Culture - Final, Complete BONNY ABREU MD Jan 05, 2021 07:32
[2021-01-05] MEDS ORDERED: oxyCODONE 5MG TAB PO PRN (08:20)
[2021-01-05] MEDS: ACETAMINOPHEN TAB 650MG DOSE (2X325MG) PO PRN (08:45)
[2021-01-05] MEDS: DOCUSATE SODIUM 100MG CAPSULE PO SCH ×2 (08:45→21:00)
[2021-01-05] MEDS: PANTOPRAZOLE 40MG TAB (PROTONIX) PO SCH (08:46)
[2021-01-05] MEDS: lisinopriL 5 MG TAB PO SCH ×2 (08:46→21:54)
[2021-01-05] MEDS: MIRALAX *UNIT DOSE* 17GM PACKET PO SCH ×2 (08:49→21:00)
[2021-01-05] MEDS: LIDOCAINE 5% (LIDODERM) PATCH TD SCH (09:00)
[2021-01-05] MEDS: oxyCODONE 10 MG CR TAB PO SCH ×2 (09:59→21:52)
[2021-01-05 14:00] VITALS: BP 118/87
[2021-01-05] MEDS: ACETAMINOPHEN 500 MG TAB PO SCH ×3 (14:34→21:53)
[2021-01-05] MEDS: **NOTE PATIENT COMMENT** MISC XX SCH (21:00)
[2021-01-05] MEDS: TAMSULOSIN 0.4 MG CAP PO SCH (21:54)
[2021-01-05 23:33] VITALS: BP 115/64
[2021-01-06] MEDS: HEPARIN SOD (PORCINE) 5000UNITS/ML 1ML VIAL/SYRINGE SQ SCH ×3 (05:34→22:27)
[2021-01-06] MEDS: DICLOFENAC EPOLAMINE 1.3 % PATCH TOP SCH ×2 (05:43→18:00)
[2021-01-06 06:45] LABS: BASO # 0.1 10^3/uL (0.0-0.2); BASO % 0.4 % (0.0-1.0); EOS # 0.5 10^3/uL (0.0-0.5); EOS % 3.6 % (0.0-3.0); HEMATOCRIT 26.6 % (36.0-47.0); HEMOGLOBIN 8.6 g/dl (12.0-15.5); LYMPH # 1.2 10^3/uL (1.5-5.0); LYMPH % 9.8 % (24.0-44.0); MEAN CORPUSCULAR HGB CONC 32.3 g/dl (32.0-36.5); MEAN CORPUSCULAR VOLUME 89.6 fl (80.0-96.0); MONO # 1.1 10^3/uL (0.0-0.8); MONO % 8.3 % (2.0-8.0); NEUTROPHILS # 9.8 10^3/uL (1.5-8.5); NEUTROPHILS % 77.3 % (36.0-66.0); PLATELET COUNT, AUTOMATED 367 10^3/uL (150-450); RED BLOOD COUNT 2.97 10^6/uL (4.00-5.40); WHITE BLOOD COUNT 12.7 10^3/uL (4.0-10.0)
[2021-01-06 07:12] LABS: BLOOD UREA NITROGEN 25 MG/DL (7-18); CALCIUM LEVEL 9.1 MG/DL (8.8-10.2); CARBON DIOXIDE LEVEL 27 MEQ/L (21-32); CHLORIDE LEVEL 104 MEQ/L (98-107); CREATININE FOR GFR 0.79 MG/DL (0.55-1.30); GLOMERULAR FILTRATION RATE > 60.0 (>39); GLUCOSE, FASTING 100 MG/DL (70-100); POTASSIUM SERUM 4.3 MEQ/L (3.5-5.1); SODIUM LEVEL 140 MEQ/L (136-145)
[2021-01-06] MEDS: LIDOCAINE 5% (LIDODERM) PATCH TD SCH (09:00)
[2021-01-06] MEDS: MIRALAX *UNIT DOSE* 17GM PACKET PO SCH ×2 (09:15→22:24)
[2021-01-06] MEDS: lisinopriL 5 MG TAB PO SCH ×2 (09:16→22:27)
[2021-01-06] MEDS: ACETAMINOPHEN 500 MG TAB PO SCH ×4 (09:17→22:26)
[2021-01-06] MEDS: DOCUSATE SODIUM 100MG CAPSULE PO SCH ×2 (09:18→22:24)
[2021-01-06] MEDS: PANTOPRAZOLE 40MG TAB (PROTONIX) PO SCH (09:18)
[2021-01-06] MEDS: oxyCODONE 10 MG CR TAB PO SCH (09:19)
[2021-01-06] MEDS ORDERED: MORPHINE 30 MG TAB **MSIR PO PRN (09:45)
[2021-01-06] MEDS ORDERED: PILL CUTTER 1 EACH XX PRN (10:30)
--- NOTE | 2021-01-06 12:08 | IPNPDOC ---
Date Seen The patient was seen on 01/06/21. Progress Note SUBJECTIVE: unable to bear weight and ambulate more than a few minutes due to 10/10 pain in her pelvis and hips despite q4hrs pain meds and bid oxy controlled release. no sedation or respiratory issues. had some nausea yesterday after taking pain meds. OBJECTIVE: VITAL SIGNS: see below GENERAL: no distress. aaox 3 HEENT: No cyanosis, jugular venous distention (JVD) or cervical lymphadenopathy. LUNGS: Clear to auscultation. No wheezing, rales or rhonchi. HEART: S1, S2. Sinus rhythm. ABDOMEN: Soft, nontender, nondistended. Positive bowel sounds. EXTREMITIES: No cyanosis or clubbing. LABORATORY DATA/IMAGING STUDIES/MICROBIOLOGY: Have been reviewed. ASSESSMENT: This is a 75-year-old female admitted 01/02/2021 with history of dyslipidemia, hypertension, reflux and mechanical floor and was on the floor sustaining a left pubic rami fracture as well as rhabdomyolysis. On arrival, patient had elevated white count, thought to be reactive. She had a head injury secondary to fall. IMPRESSION: 1. Left pubic rami fracture secondary to mechanical fall. No acute intervention is required surgically. Physical therapy (PT), occupational therapy (OT) as tolerated. Acute rehabilitation unit (ARU) consulted. no relief w current regimen. dc previous pain meds. mscontin 15 mg bid and msir 15 mg q4hrs prn. dc iv morphine bowel regimen. still awaiting aru insurance 2. Acute rhabdomyolysis. Status post intravenous (IV) fluids with normal creatinine. IV fluids discontinued. normal creatinine. urine output adequate 3. Constipation. On bowel regimen with Milk of Magnesia and magnesia. 4. Hypertension. Controlled. Holding parameters placed for systolic pressure less than 130. 5. Reflux. On proton pump inhibitor (PPI). 6. Hyperlipidemia. On gemfibrozil. 7. Urine retention. Currently on a trail of Flomax and bladder scan showed postvoid residual of greater than 900. dispo: awaiting aru VS, I&O, 24H, Fishbone Vital Signs/I&O Vital Signs Date Time Temp Pulse Resp B/P (MAP) Pulse Ox O2 Delivery O2 Flow Rate FiO2 01/06/21 09:19 18 99 Room Air 01/06/21 09:16 128/85 01/05/21 23:33 98.0 86 01/02/21 05:00 2.0 I&O- Last 24 Hours up to 6 AM 01/06/21 06:00 Intake Total 990 ml Output Total 1150 ml Balance -160 ml Laboratory Data 24H LABS Laboratory Tests 2 01/06/21 05:42: Immature Granulocyte % (Auto) 0.6, Neutrophils (%) (Auto) 77.3H, Lymphocytes (%) (Auto) 9.8L, Monocytes (%) (Auto) 8.3H, Eosinophils (%) (Auto) 3.6H, Basophils (%) (Auto) 0.4, Neutrophils # (Auto) 9.8H, Lymphocytes # (Auto) 1.2L, Monocytes # (Auto) 1.1H, Eosinophils # (Auto) 0.5, Basophils # (Auto) 0.1, Nucleated Red Blood Cells % (auto) 0.2H, Anion Gap 9, Glomerular Filtration Rate > 60.0, Calcium Level 9.1 CBC/BMP Laboratory Tests 01/06/21 05:42 Microbiology Microbiology 01/02/21 Blood Culture - Preliminary, Resulted No Growth after 72 hours. All specime... 01/01/21 Urine Culture - Final, Complete BONNY ABREU MD Jan 06, 2021 12:08
[2021-01-06] MEDS ORDERED: MOM 30ML SUSPENSION UDC PO PRN (15:15)
[2021-01-06] MEDS ORDERED: FLEET ENEMA PR PRN (15:15)
[2021-01-06 18:00] VITALS: BP 107/63
[2021-01-06] MEDS: **NOTE PATIENT COMMENT** MISC XX SCH (21:00)
[2021-01-06 21:47] VITALS: BP 122/60
[2021-01-06] MEDS: MAALOX 30 ML SUSP *UDC PO PRN (22:23)
[2021-01-06] MEDS: MORPHINE 15 MG SA TAB PO SCH (22:26)
[2021-01-06] MEDS: TAMSULOSIN 0.4 MG CAP PO SCH (22:27)
[2021-01-07] MEDS: HEPARIN SOD (PORCINE) 5000UNITS/ML 1ML VIAL/SYRINGE SQ SCH ×3 (05:58→23:09)
[2021-01-07 06:00] VITALS: BP 109/60
[2021-01-07] MEDS: DICLOFENAC EPOLAMINE 1.3 % PATCH TOP SCH ×2 (06:00→16:39)
[2021-01-07] MEDS: lisinopriL 5 MG TAB PO SCH ×2 (09:00→21:00)
[2021-01-07] MEDS: LIDOCAINE 5% (LIDODERM) PATCH TD SCH (09:00)
[2021-01-07] MEDS: ACETAMINOPHEN 500 MG TAB PO SCH ×4 (09:01→23:10)
[2021-01-07] MEDS: MIRALAX *UNIT DOSE* 17GM PACKET PO SCH ×2 (09:01→21:00)
[2021-01-07] MEDS: PANTOPRAZOLE 40MG TAB (PROTONIX) PO SCH (09:01)
[2021-01-07] MEDS: MORPHINE 15 MG SA TAB PO SCH ×2 (09:02→23:14)
[2021-01-07] MEDS: DOCUSATE SODIUM 100MG CAPSULE PO SCH ×2 (09:02→23:10)
--- NOTE | 2021-01-07 10:54 | IPNPDOC ---
Date Seen The patient was seen on 01/07/21. Progress Note SUBJECTIVE: Patient still complains of pelvic and hip pain when she stands up places weight on it and ambulates Per Dr. Brown not appropriate for ARU awaiting senior living placement for rehab. 0 out of 10 pain when she is supine and not moving. 10 out of 10 pain improves to 5 out of 10 with morphine OBJECTIVE: VITAL SIGNS: see below GENERAL: no distress. aaox 3 HEENT: No cyanosis, jugular venous distention (JVD) or cervical lymphadenopathy. LUNGS: Clear to auscultation. No wheezing, rales or rhonchi. HEART: S1, S2. Sinus rhythm. ABDOMEN: Soft, nontender, nondistended. Positive bowel sounds. EXTREMITIES: No cyanosis or clubbing. LABORATORY DATA/IMAGING STUDIES/MICROBIOLOGY: Have been reviewed. ASSESSMENT: This is a 75-year-old female admitted 01/02/2021 with history of dyslipidemia, hypertension, reflux and mechanical floor and was on the floor sustaining a left pubic rami fracture as well as rhabdomyolysis. On arrival, patient had elevated white count, thought to be reactive. She had a head injury secondary to fall. IMPRESSION: 1. Left pubic rami fracture secondary to mechanical fall. No acute intervention is required surgically. Physical therapy (PT), occupational therapy (OT) as tolerated. Acute rehabilitation unit (ARU) consulted. no relief w current regimen. dc previous pain meds. mscontin 15 mg bid and msir 15 mg q4hrs prn. Per ARU patient is not appropriate, and should be placed in a senior living for rehab 2. Acute rhabdomyolysis. Status post intravenous (IV) fluids with normal creatinine. IV fluids discontinued. normal creatinine. urine output adequate 3. Constipation. On bowel regimen with Milk of Magnesia and magnesia. 4. Hypertension. Controlled. Holding parameters placed for systolic pressure less than 130. 5. Reflux. On proton pump inhibitor (PPI). 6. Hyperlipidemia. On gemfibrozil. 7. Urine retention. Currently on a trail of Flomax and bladder scan showed postvoid residual of greater than 900. dispo: Not appropriate for acute rehab unit. Patient has been changed to [facility] status Awaiting SNF rehab placement- VS, I&O, 24H, Fishbone Vital Signs/I&O Vital Signs Date Time Temp Pulse Resp B/P (MAP) Pulse Ox O2 Delivery O2 Flow Rate FiO2 01/07/21 09:02 16 01/07/21 09:00 113/59 01/07/21 06:00 97.6 92 94 Room Air 01/02/21 05:00 2.0 I&O- Last 24 Hours up to 6 AM 01/07/21 06:00 Intake Total 0 ml Balance 0 ml Laboratory Data Microbiology Microbiology 01/02/21 Blood Culture - Final, Complete NO GROWTH AFTER 5 DAYS 01/01/21 Urine Culture - Final, Complete BONNY ABREU MD Jan 07, 2021 10:54
[2021-01-07] MEDS: MAALOX 30 ML SUSP *UDC PO PRN (16:37)
[2021-01-07] MEDS: **NOTE PATIENT COMMENT** MISC XX SCH (21:00)
[2021-01-07] MEDS: TAMSULOSIN 0.4 MG CAP PO SCH (23:09)
[2021-01-08] MEDS: HEPARIN SOD (PORCINE) 5000UNITS/ML 1ML VIAL/SYRINGE SQ SCH ×3 (05:35→22:59)
[2021-01-08] MEDS ORDERED: NYSTATIN 100,000 UNITS/GM TOPICAL PWD 15 GM TOP PRN (05:35)
[2021-01-08] MEDS: DICLOFENAC EPOLAMINE 1.3 % PATCH TOP SCH ×2 (05:36→17:12)
[2021-01-08 06:00] VITALS: BP 125/58
[2021-01-08] MEDS: ACETAMINOPHEN 500 MG TAB PO SCH ×4 (08:22→23:00)
[2021-01-08] MEDS: MIRALAX *UNIT DOSE* 17GM PACKET PO SCH ×2 (08:22→22:59)
[2021-01-08] MEDS: lisinopriL 5 MG TAB PO SCH ×3 (08:22→21:00)
[2021-01-08] MEDS: PANTOPRAZOLE 40MG TAB (PROTONIX) PO SCH (08:22)
[2021-01-08] MEDS: LIDOCAINE 5% (LIDODERM) PATCH TD SCH (08:23)
[2021-01-08] MEDS: DOCUSATE SODIUM 100MG CAPSULE PO SCH ×2 (08:23→23:00)
[2021-01-08] MEDS: MORPHINE 15 MG SA TAB PO SCH ×2 (08:23→23:04)
[2021-01-08] MEDS: **NOTE PATIENT COMMENT** MISC XX SCH (21:00)
[2021-01-08] MEDS: TAMSULOSIN 0.4 MG CAP PO SCH (23:01)
[2021-01-09] MEDS: HEPARIN SOD (PORCINE) 5000UNITS/ML 1ML VIAL/SYRINGE SQ SCH ×3 (05:48→21:05)
[2021-01-09 06:00] VITALS: BP 112/69
[2021-01-09] MEDS: DICLOFENAC EPOLAMINE 1.3 % PATCH TOP SCH ×2 (06:00→17:09)
[2021-01-09] MEDS: LIDOCAINE 5% (LIDODERM) PATCH TD SCH (09:00)
[2021-01-09] MEDS: lisinopriL 5 MG TAB PO SCH ×2 (09:00→20:14)
[2021-01-09] MEDS: DOCUSATE SODIUM 100MG CAPSULE PO SCH ×2 (09:25→20:14)
[2021-01-09] MEDS: MIRALAX *UNIT DOSE* 17GM PACKET PO SCH ×2 (09:25→20:15)
[2021-01-09] MEDS: PANTOPRAZOLE 40MG TAB (PROTONIX) PO SCH (09:25)
[2021-01-09] MEDS: ACETAMINOPHEN 500 MG TAB PO SCH ×4 (09:26→20:15)
[2021-01-09] MEDS: MORPHINE 15 MG SA TAB PO SCH ×2 (09:27→20:15)
[2021-01-09] MEDS ORDERED: MSIR30TA PO (15:33)
[2021-01-09] MEDS ORDERED: MORP15TASA PO (15:33)
[2021-01-09 15:34] LABS: HEMATOCRIT 30.4 % (36.0-47.0); HEMOGLOBIN 9.6 g/dl (12.0-15.5); MEAN CORPUSCULAR HEMOGLOBIN 28.7 pg (27.0-33.0); MEAN CORPUSCULAR HGB CONC 31.6 g/dl (32.0-36.5); PLATELET COUNT, AUTOMATED 508 10^3/uL (150-450); RED BLOOD COUNT 3.34 10^6/uL (4.00-5.40)
[2021-01-09 16:00] LABS: BLOOD UREA NITROGEN 33 MG/DL (7-18); CALCIUM LEVEL 9.9 MG/DL (8.8-10.2); CARBON DIOXIDE LEVEL 31 MEQ/L (21-32); CHLORIDE LEVEL 98 MEQ/L (98-107); CREATININE FOR GFR 0.96 MG/DL (0.55-1.30); GLOMERULAR FILTRATION RATE > 60.0 (>39); GLUCOSE, FASTING 100 MG/DL (70-100); POTASSIUM SERUM 5.2 MEQ/L (3.5-5.1); SODIUM LEVEL 137 MEQ/L (136-145)
[2021-01-09] MEDS: MAALOX 30 ML SUSP *UDC PO PRN ×2 (17:08→23:06)
[2021-01-09] MEDS: TAMSULOSIN 0.4 MG CAP PO SCH (20:14)
[2021-01-09] MEDS: **NOTE PATIENT COMMENT** MISC XX SCH (20:17)
[2021-01-10] MEDS: DICLOFENAC EPOLAMINE 1.3 % PATCH TOP SCH (05:49)
[2021-01-10] MEDS: HEPARIN SOD (PORCINE) 5000UNITS/ML 1ML VIAL/SYRINGE SQ SCH ×2 (05:57→13:33)
[2021-01-10 06:05] VITALS: BP 113/69
[2021-01-10 09:00] VITALS: BP 103/62
[2021-01-10] MEDS: MIRALAX *UNIT DOSE* 17GM PACKET PO SCH (09:00)
[2021-01-10] MEDS: lisinopriL 5 MG TAB PO SCH (09:00)
[2021-01-10] MEDS: LIDOCAINE 5% (LIDODERM) PATCH TD SCH (09:00)
[2021-01-10] MEDS: DOCUSATE SODIUM 100MG CAPSULE PO SCH (09:00)
[2021-01-10] MEDS: ACETAMINOPHEN 500 MG TAB PO SCH ×2 (09:33→13:33)
[2021-01-10] MEDS: MORPHINE 15 MG SA TAB PO SCH (09:34)
[2021-01-10] MEDS: PANTOPRAZOLE 40MG TAB (PROTONIX) PO SCH (09:34)
--- NOTE | 2021-01-10 23:04 | DS.PDOC ---
Discharge Summary General Date of Admission Jan 02, 2021 at 01:32 Discharge Summary PROCEDURES PERFORMED DURING STAY: [None]. DISCHARGE DIAGNOSES: Left Pubic rami fracture s/p mechanical fall. Rhabdomyolysis COMPLICATIONS/CHIEF COMPLAINT: Hip Fracture. HOSPITAL COURSE: This is a 75-year-old female with PMH of dyslipidemia, hypertension, reflux, chronic constipation admitted 01/02/2021 after a mechanical fall. Patient reports that she fell Saturday (12/30/20) after she tripped on a boot in her garage and she fell forward hitting her face on the driver guard side mirror and falling on her left side on the ground. Patient reported that she felt instant severe left hip pain. Patient reported that she was able to slide herself forward to lay flat on her back but was unable to stand up. Unfortunately, as she lives alone she stayed Saturday night and Saturday night in the garage on the ground. Patient was found down on Saturday and brought tot ED. CT scan of the pelvis showed complex left superior rami fracture. She was also found to have mild rhabdomyolysis. Patient was evaluated by Ortho Dr Ryan Cardona and Non surgical management of the fracture was recommended. She was started on Narcotics for pain control and ordered PT and OT. Weightbearing as tolerated within the limits of her pain. Rhabdomyolysis resolved with hydration. Hospital course was complicated by acute urinary retention (greater than 900 ml) so she has been started for a flomax trial. PT recommended continued rehab after discharge. ARU was consulted but she was not felt to be an appropriate candidate for ARU. So request was submitted for sub acute rehab. She was transitioned to [facility] level of care while awating for a Sub acute rehab bed. Patient was accepted at the [facility] rehab and was dischrged today in a stable condition. DISCHARGE MEDICATIONS: Please see below. ALLERGIES: Please see below. PHYSICAL EXAMINATION ON DISCHARGE: VITAL SIGNS: Please see below. GENERAL: no distress. aaox 3 HEENT: No cyanosis, jugular venous distention (JVD) or cervical lymphadenopathy. LUNGS: Clear to auscultation. No wheezing, rales or rhonchi. HEART: S1, S2. Sinus rhythm. ABDOMEN: Soft, nontender, nondistended. Positive bowel sounds. EXTREMITIES: No cyanosis or clubbing. LABORATORY DATA: Please see below. ACTIVITY: [As tolerated]. DIET: As tolerated DISPOSITION: 62 D/T Rehab Facility. DISCHARGE INSTRUCTIONS: Follow up with MD at Rehab. Follow up at [facility] orthopedics in 6 weeks DISCHARGE CONDITION: [Stable]. TIME SPENT ON DISCHARGE: 35 minutes. Vital Signs/I&Os Vital Signs Date Time Temp Pulse Resp B/P (MAP) Pulse Ox O2 Delivery O2 Flow Rate FiO2 01/10/21 09:34 18 01/10/21 09:00 103/62 01/10/21 06:05 96.2 85 97 Room Air I&O- Last 24 Hours up to 6 AM 01/10/21 07:00 Intake Total 1620 ml Output Total 0 ml Balance 1620 ml Microbiology Microbiology 01/02/21 Blood Culture - Final, Complete NO GROWTH AFTER 5 DAYS 01/01/21 Urine Culture - Final, Complete Discharge Medications Scheduled Gemfibrozil (Lopid) 600 Mg Tablet, 600 MG PO BID, (Reported) Lisinopril (Lisinopril) 5 Mg Tablet, 5 MG PO BID, (Reported) Morphine Sulfate (Morphine Sulfate ER) 15 Mg Tablet.er, 15 MG PO BID Scheduled PRN Famotidine (Famotidine) 20 Mg Tablet, 20 MG PO PRN PRN for HEARTBURN, (Reported) Morphine Sulfate (Morphine Sulfate) 30 Mg Tablet, 15 MG PO Q4HP PRN for SEVERE PAIN (PS 8-10) Allergies Coded Allergies: latex (Verified Allergy, Intermediate, blisters, 06/09/20) Clare Tejeda MD Jan 10, 2021 23:04
== END 2021-01-10 14:20 | DRG 536 ==
LOC: EDBD 18:03 → M ED 18:03 → EDSEX 18:03 → M ED INP 01-02 01:32 → M PCU 01-02 21:44 → M MS5PR 01-03 15:58
PROVIDERS: ADMIT Internal Medicine; ATTEND Internal Medicine Nephrology
DX: S32.512A Fracture of superior rim of left pubis, initial encounter for closed fracture (principal); M62.82 Rhabdomyolysis; S09.8XXA Other specified injuries of head, initial encounter; W01.0XXA Fall on same level from slipping, tripping and stumbling without subsequent striking against object, initial encounter; K21.9 Gastro-esophageal reflux disease without esophagitis; E78.5 Hyperlipidemia, unspecified; I10 Essential (primary) hypertension; Z79.899 Other long term (current) drug therapy; Z91.040 Latex allergy status; Z98.42 Cataract extraction status, left eye; Z20.822 Contact with and (suspected) exposure to COVID-19; K59.00 Constipation, unspecified; Y92.009 Unspecified place in unspecified non-institutional (private) residence as the place of occurrence of the external cause; R33.9 Retention of urine, unspecified

== ENCOUNTER → 2021-01-26 | Outpatient (REF) | payer MEDICARE ==
[~2021-01-26] MED LIST changes: +MORP15TASA PO; +MSIR30TA PO
[2021-01-27 11:41] LABS: APPEARANCE, URINE TURBID (CLEAR); BACTERIA, URINE AUTO 1+ (NEGATIVE); BILIRUBIN, URINE AUTO NEGATIVE (NEGATIVE); BLOOD, URINE BLOOD 1+ (NEGATIVE); COLOR, URINE YELLOW (YELLOW); GLUCOSE, URINE (UA) AUTO NEGATIVE (NEGATIVE); KETONE, URINE AUTO NEGATIVE (NEGATIVE); LEUKOCYTE ESTERASE, URINE AUTO 3+ (NEGATIVE); MUCUS, URINE SMALL (NEGATIVE); NITRITE, URINE AUTO POSITIVE (NEGATIVE); PROTEIN, URINE AUTO 2+ mg/dL (NEGATIVE); RBC, URINE AUTO 13 /HPF (0-3); SPECIFIC GRAVITY URINE AUTO 1.017 (1.002-1.035); SQUAMOUS EPITHELIAL CELL UR AU 2 /HPF (0-6); UROBILINOGEN, URINE AUTO 0.2 mg/dL (0.0-2.0); WBC, URINE AUTO TNTC /HPF (0-3)
== END ==
LOC: M SFHCPLAZ 10:43
PROVIDERS: ATTEND Nurse Practitioner Adult Health
DX: R30.0 Dysuria (principal)

== ENCOUNTER → 2021-03-03 | Outpatient (CLI) | payer MEDICARE ==
[~2021-03-03] MED LIST changes: -LISI-898 PO; +LISI5TAB11 PO
== END ==
LOC: M PLAIMG 12:15
PROVIDERS: ATTEND Physician Assistant
DX: M51.34 Other intervertebral disc degeneration, thoracic region (principal); M51.36 Other intervertebral disc degeneration, lumbar region; M54.50 Low back pain, unspecified; Z79.899 Other long term (current) drug therapy
CPT/HCPCS: 72110; 81002; 87086; G0463

== ENCOUNTER → 2021-03-03 | Outpatient (REF) | payer MEDICARE | LOC: M SFHCPLAZ 16:58 | PROVIDERS: ATTEND Physician Assistant | DX: M54.50 Low back pain, unspecified (principal); Z79.899 Other long term (current) drug therapy ==

== ENCOUNTER → 2021-03-08 | Outpatient (REF) | payer MEDICARE ==
[~2021-03-08] MED LIST changes: +LISI-898 PO; -LISI5TAB11 PO
[2021-03-08 17:51] LABS: APPEARANCE, URINE CLEAR (CLEAR); BACTERIA, URINE AUTO NEGATIVE (NEGATIVE); BILIRUBIN, URINE AUTO NEGATIVE (NEGATIVE); BLOOD, URINE BLOOD 1+ (NEGATIVE); COLOR, URINE YELLOW (YELLOW); GLUCOSE, URINE (UA) AUTO NEGATIVE (NEGATIVE); KETONE, URINE AUTO NEGATIVE (NEGATIVE); LEUKOCYTE ESTERASE, URINE AUTO 1+ (NEGATIVE); MUCUS, URINE SMALL (NEGATIVE); NITRITE, URINE AUTO NEGATIVE (NEGATIVE); PROTEIN, URINE AUTO NEGATIVE (NEGATIVE); RBC, URINE AUTO 1 /HPF (0-3); SPECIFIC GRAVITY URINE AUTO 1.012 (1.002-1.035); SQUAMOUS EPITHELIAL CELL UR AU 3 /HPF (0-6); UROBILINOGEN, URINE AUTO 0.2 mg/dL (0.0-2.0); WBC, URINE AUTO 9 /HPF (0-3)
== END ==
LOC: M SFHCPLAZ 16:42
PROVIDERS: ATTEND Physician Assistant
DX: R39.9 Unspecified symptoms and signs involving the genitourinary system (principal)

== ENCOUNTER → 2021-04-05 | Outpatient (CLI) | payer MEDICARE ==
[2021-04-05 10:37] LABS: BASO # 0.1 10^3/uL (0.0-0.2); BASO % 0.9 % (0.0-1.0); EOS # 0.5 10^3/uL (0.0-0.5); EOS % 5.8 % (0.0-3.0); HEMATOCRIT 36.5 % (36.0-47.0); HEMOGLOBIN 11.4 g/dl (12.0-15.5); LYMPH # 2.1 10^3/uL (1.5-5.0); LYMPH % 25.9 % (24.0-44.0); MEAN CORPUSCULAR HEMOGLOBIN 28.4 pg (27.0-33.0); MEAN CORPUSCULAR HGB CONC 31.2 g/dl (32.0-36.5); MEAN CORPUSCULAR VOLUME 90.8 fl (80.0-96.0); MONO # 0.7 10^3/uL (0.0-0.8); MONO % 8.7 % (2.0-8.0); NEUTROPHILS # 4.6 10^3/uL (1.5-8.5); NEUTROPHILS % 58.1 % (36.0-66.0); PLATELET COUNT, AUTOMATED 407 10^3/uL (150-450); RED BLOOD COUNT 4.02 10^6/uL (4.00-5.40)
[2021-04-05 11:16] LABS: BLOOD UREA NITROGEN 34 MG/DL (7-18); CREATININE FOR GFR 0.78 MG/DL (0.55-1.30); FERRITIN 67 NG/ML (8-252); FOLATE 13.1 NG/ML; GLOMERULAR FILTRATION RATE > 60.0 (>39); IRON (FE) 87 UG/DL (50-170); PERCENT SATURATION 17.2 % (13.2-45.0); TOTAL IRON BINDING CAPACITY 506 UG/DL (250-450); VITAMIN B12 LEVEL 465 PG/ML
== END ==
LOC: M PLALAB 08:58
PROVIDERS: ATTEND Internal Medicine Gastroenterology
DX: D50.9 Iron deficiency anemia, unspecified (principal)

== ENCOUNTER → 2021-04-18 | Outpatient (CLI) | payer MEDICARE ==
[~2021-04-18] MED LIST changes: -LISI-898 PO; +LISI5TAB11 PO
[2021-04-18 10:59] LABS: HEMATOCRIT 36.4 % (36.0-47.0); HEMOGLOBIN 11.4 g/dl (12.0-15.5); MEAN CORPUSCULAR HEMOGLOBIN 28.5 pg (27.0-33.0); MEAN CORPUSCULAR HGB CONC 31.3 g/dl (32.0-36.5); PLATELET COUNT, AUTOMATED 401 10^3/uL (150-450); WHITE BLOOD COUNT 7.9 10^3/uL (4.0-10.0)
[2021-04-18 11:24] LABS: BLOOD UREA NITROGEN 40 MG/DL (7-18); CALCIUM LEVEL 10.1 MG/DL (8.8-10.2); CARBON DIOXIDE LEVEL 26 MEQ/L (21-32); CHLORIDE LEVEL 110 MEQ/L (98-107); CREATININE FOR GFR 0.85 MG/DL (0.55-1.30); GLOMERULAR FILTRATION RATE > 60.0 (>39); GLUCOSE, FASTING 97 MG/DL (70-100); POTASSIUM SERUM 4.5 MEQ/L (3.5-5.1); SODIUM LEVEL 143 MEQ/L (136-145)
== END ==
LOC: M LAB 09:39
PROVIDERS: ATTEND Obstetrics & Gynecology
DX: Z01.818 Encounter for other preprocedural examination (principal); R94.31 Abnormal electrocardiogram [ECG] [EKG]

== ENCOUNTER → 2021-07-06 | Outpatient (CLI) | payer MEDICARE ==
[~2021-07-06] MED LIST changes: -D31000TA2 PO; +VITA100093 PO
[2021-07-06 11:56] LABS: ALBUMIN 3.9 GM/DL (3.2-5.2); BILIRUBIN,TOTAL 0.3 MG/DL (0.2-1.0); CALCIUM LEVEL 9.9 MG/DL (8.8-10.2); CHOLESTEROL RISK RATIO 2.324 (<5); CREATININE FOR GFR 1.06 MG/DL (0.55-1.30); GLOMERULAR FILTRATION RATE 53.7 (>39); POTASSIUM SERUM 4.7 MEQ/L (3.5-5.1); TOTAL 25(OH) VITAMIN D 35.2 NG/ML (30.0-100.0); TOTAL PROTEIN 7.4 GM/DL (6.4-8.2)
[2021-07-06 15:27] LABS: HEMOGLOBIN A1c 6.4 %
== END ==
LOC: M PLALAB 08:10
PROVIDERS: ATTEND Nurse Practitioner Adult Health
DX: Z00.00 Encounter for general adult medical examination without abnormal findings (principal); R73.03 Prediabetes; E78.00 Pure hypercholesterolemia, unspecified; E55.9 Vitamin D deficiency, unspecified; Z79.899 Other long term (current) drug therapy

== ENCOUNTER → 2021-08-01 | Outpatient (REF) | payer MEDICARE | LOC: M SFHCPLAZ 12:56 | PROVIDERS: ATTEND Nurse Practitioner Adult Health | DX: R35.0 Frequency of micturition (principal) ==

== ENCOUNTER → 2021-08-04 | Outpatient (CLI) | payer MEDICARE | LOC: M WHC 09:04 | PROVIDERS: ATTEND Nurse Practitioner Adult Health | DX: I77.89 Other specified disorders of arteries and arterioles (principal); R35.0 Frequency of micturition ==

== ENCOUNTER → 2021-09-12 | Outpatient (REF) | payer MEDICARE | LOC: M SFHCDERM 16:50 | PROVIDERS: ATTEND Nurse Practitioner Family | DX: S20.161A Insect bite (nonvenomous) of breast, right breast, initial encounter (principal); Y92.9 Unspecified place or not applicable; Y99.9 Unspecified external cause status ==

== ENCOUNTER → 2021-11-01 | Outpatient (CLI) | payer MEDICARE ==
[2021-11-01 18:01] LABS: BASO # 0.1 10^3/uL (0.0-0.2); BASO % 0.4 % (0.0-1.0); EOS # 0.5 10^3/uL (0.0-0.5); EOS % 4.3 % (0.0-3.0); HEMATOCRIT 27.8 % (36.0-47.0); HEMOGLOBIN 8.8 g/dl (12.0-15.5); LYMPH # 2.3 10^3/uL (1.5-5.0); LYMPH % 18.2 % (24.0-44.0); MEAN CORPUSCULAR HEMOGLOBIN 29.4 pg (27.0-33.0); MEAN CORPUSCULAR HGB CONC 31.7 g/dl (32.0-36.5); MONO # 1.1 10^3/uL (0.0-0.8); MONO % 8.8 % (2.0-8.0); NEUTROPHILS # 8.4 10^3/uL (1.5-8.5); NEUTROPHILS % 67.8 % (36.0-66.0); PLATELET COUNT, AUTOMATED 364 10^3/uL (150-450); RED BLOOD COUNT 2.99 10^6/uL (4.00-5.40); WHITE BLOOD COUNT 12.4 10^3/uL (4.0-10.0)
[2021-11-01 19:34] LABS: ALBUMIN 3.1 GM/DL (3.2-5.2); ALT/SGPT 26 U/L (12-78); BILIRUBIN,TOTAL 0.7 MG/DL (0.2-1.0); BLOOD UREA NITROGEN 26 MG/DL (7-18); CALCIUM LEVEL 9.1 MG/DL (8.8-10.2); CARBON DIOXIDE LEVEL 26 MEQ/L (21-32); CHLORIDE LEVEL 105 MEQ/L (98-107); CREATININE FOR GFR 0.83 MG/DL (0.55-1.30); GLOMERULAR FILTRATION RATE > 60.0 (>39); GLUCOSE, FASTING 106 MG/DL (70-100); NT-PRO BNP 133 PG/ML (<450); PHOSPHORUS LEVEL 3.3 MG/DL (2.5-4.9); POTASSIUM SERUM 4.7 MEQ/L (3.5-5.1); SODIUM LEVEL 139 MEQ/L (136-145); TOTAL PROTEIN 6.6 GM/DL (6.4-8.2)
== END ==
LOC: M PLALAB 15:30
PROVIDERS: ATTEND Physician Assistant
DX: M79.89 Other specified soft tissue disorders (principal)

== ENCOUNTER → 2021-11-25 | Outpatient (CLI) | payer MEDICARE ==
[2021-11-25 11:48] LABS: BASO # 0.1 10^3/uL (0.0-0.2); BASO % 0.7 % (0.0-1.0); EOS # 0.6 10^3/uL (0.0-0.5); EOS % 5.4 % (0.0-3.0); HEMATOCRIT 32.7 % (36.0-47.0); HEMOGLOBIN 10.3 g/dl (12.0-15.5); LYMPH # 2.2 10^3/uL (1.5-5.0); LYMPH % 19.4 % (24.0-44.0); MEAN CORPUSCULAR HEMOGLOBIN 29.5 pg (27.0-33.0); MEAN CORPUSCULAR HGB CONC 31.5 g/dl (32.0-36.5); MEAN CORPUSCULAR VOLUME 93.7 fl (80.0-96.0); MONO # 0.9 10^3/uL (0.0-0.8); MONO % 7.5 % (2.0-8.0); NEUTROPHILS # 7.5 10^3/uL (1.5-8.5); NEUTROPHILS % 66.5 % (36.0-66.0); PLATELET COUNT, AUTOMATED 349 10^3/uL (150-450); RED BLOOD COUNT 3.49 10^6/uL (4.00-5.40); WHITE BLOOD COUNT 11.3 10^3/uL (4.0-10.0)
[2021-11-25 12:14] LABS: INR 0.98; PARTIAL THROMBOPLASTIN TIME 35.4 SECONDS (25.9-37.0); PROTHROMBIN TIME 13.4 SECONDS (12.7-14.5)
[2021-11-25 12:45] LABS: C REACTIVE PROTEIN QUANTITATIV 0.39 MG/DL (0.00-0.30); TOTAL PROTEIN 7.4 GM/DL (6.4-8.2)
[2021-11-25 12:52] LABS: ERYTHROCYTE SEDIMENTATION RATE 37 mm/hr (0-30)
[2021-11-27 11:01] LABS: ALBUMIN 4.22 GM/DL (3.29-5.55); ALPHA-1-GLOBULIN % 5.3 % (2.9-4.9); ALPHA-1-GLOBULINS 0.39 GM/DL (0.17-0.41); ALPHA-2-GLOBULINS 0.95 GM/DL (0.42-0.99); ALPHA-2-GLOBULINS % 12.9 % (7.1-11.8); BETA-1-GLOBULINS 0.48 GM/DL (0.28-0.60); BETA-1-GLOBULINS % 6.5 % (4.7-7.2); BETA-2-GLOBULINS 0.42 GM/DL (0.19-0.55); BETA-2-GLOBULINS % 5.7 % (3.2-6.5); GAMMA GLOBULIN % 12.6 % (11.1-18.8); GAMMA GLOBULINS 0.93 GM/DL (0.65-1.58)
== END ==
LOC: M LAB 10:25
DX: H35.81 Retinal edema (principal); Z79.899 Other long term (current) drug therapy

== ENCOUNTER → 2021-12-19 | Outpatient (CLI) | payer MEDICARE ==
[2021-12-19 13:06] LABS: BASO # 0.1 10^3/uL (0.0-0.2); BASO % 0.6 % (0.0-1.0); EOS # 0.4 10^3/uL (0.0-0.5); EOS % 4.6 % (0.0-3.0); HEMATOCRIT 34.2 % (36.0-47.0); HEMOGLOBIN 10.7 g/dl (12.0-15.5); LYMPH # 1.9 10^3/uL (1.5-5.0); LYMPH % 19.8 % (24.0-44.0); MEAN CORPUSCULAR HGB CONC 31.3 g/dl (32.0-36.5); MEAN CORPUSCULAR VOLUME 92.7 fl (80.0-96.0); MONO % 10.9 % (2.0-8.0); NEUTROPHILS % 63.8 % (36.0-66.0); PLATELET COUNT, AUTOMATED 308 10^3/uL (150-450); RED BLOOD COUNT 3.69 10^6/uL (4.00-5.40); WHITE BLOOD COUNT 9.5 10^3/uL (4.0-10.0)
[2021-12-19 13:29] LABS: HEMOGLOBIN A1c 5.9 %
[2021-12-19 13:33] LABS: ERYTHROCYTE SEDIMENTATION RATE 31 mm/hr (0-30)
== END ==
LOC: M PLALAB 11:03
DX: H35.81 Retinal edema (principal); Z79.899 Other long term (current) drug therapy

== ENCOUNTER → 2021-12-28 | Outpatient (CLI) | payer MEDICARE ==
[2021-12-28 18:13] LABS: BASO # 0.1 10^3/uL (0.0-0.2); BASO % 0.7 % (0.0-1.0); EOS # 0.4 10^3/uL (0.0-0.5); HEMATOCRIT 34.3 % (36.0-47.0); HEMOGLOBIN 10.8 g/dl (12.0-15.5); LYMPH # 2.5 10^3/uL (1.5-5.0); LYMPH % 24.3 % (24.0-44.0); MEAN CORPUSCULAR HGB CONC 31.5 g/dl (32.0-36.5); MEAN CORPUSCULAR VOLUME 92.2 fl (80.0-96.0); MONO % 10.1 % (2.0-8.0); NEUTROPHILS # 6.1 10^3/uL (1.5-8.5); NEUTROPHILS % 60.4 % (36.0-66.0); PLATELET COUNT, AUTOMATED 312 10^3/uL (150-450); RED BLOOD COUNT 3.72 10^6/uL (4.00-5.40); WHITE BLOOD COUNT 10.1 10^3/uL (4.0-10.0)
[2021-12-28 18:37] LABS: FERRITIN 62 NG/ML (8-252); IRON (FE) 55 UG/DL (50-170)
== END ==
LOC: M LAB 16:35
PROVIDERS: ATTEND Physician Assistant
DX: D64.9 Anemia, unspecified (principal)

== ENCOUNTER → 2022-01-02 | Outpatient (CLI) | payer MEDICARE ==
[2022-01-02 18:16] LABS: CALCIUM LEVEL 9.9 MG/DL (8.8-10.2); CREATININE FOR GFR 1.07 MG/DL (0.55-1.30); GLOMERULAR FILTRATION RATE 52.9 (>39); POTASSIUM SERUM 4.5 MEQ/L (3.5-5.1)
== END ==
LOC: M PLALAB 15:28
DX: H35.81 Retinal edema (principal)

== ENCOUNTER → 2022-01-11 | Outpatient (CLI) | payer MEDICARE | LOC: M PLARAD 12:29 | DX: H35.81 Retinal edema (principal) ==

== ENCOUNTER → 2022-01-18 | Outpatient (REF) | payer MEDICARE | LOC: M WUC 20:12 | PROVIDERS: ATTEND Physician Assistant | DX: N39.0 Urinary tract infection, site not specified (principal) ==

== ENCOUNTER → 2022-09-05 | Outpatient (CLI) | payer MEDICARE ==
[2022-09-05 11:07] LABS: HEMATOCRIT 35.6 % (36.0-47.0); HEMOGLOBIN 11.1 g/dl (12.0-15.5); MEAN CORPUSCULAR HEMOGLOBIN 28.8 pg (27.0-33.0); MEAN CORPUSCULAR HGB CONC 31.2 g/dl (32.0-36.5); MEAN CORPUSCULAR VOLUME 92.5 fl (80.0-96.0); PLATELET COUNT, AUTOMATED 272 10^3/uL (150-450); RED BLOOD COUNT 3.85 10^6/uL (4.00-5.40); WHITE BLOOD COUNT 8.8 10^3/uL (4.0-10.0)
[2022-09-05 11:11] LABS: IRON (FE) 48 UG/DL (50-170); PERCENT SATURATION 12.9 % (13.2-45.0); TOTAL IRON BINDING CAPACITY 371 UG/DL (250-425)
[2022-09-05 11:12] LABS: ALBUMIN 3.6 G/DL (3.2-5.2); ALKALINE PHOSPHATASE 118 U/L (46-116); ALT/SGPT 19 U/L (7.0-40); AST/SGOT 19 U/L (<34); BILIRUBIN,TOTAL 0.4 MG/DL (0.3-1.2); BLOOD UREA NITROGEN 35 MG/DL (9-23); CALCIUM LEVEL 9.7 MG/DL (8.3-10.6); CARBON DIOXIDE LEVEL 29 MMOL/L (20-31); CHLORIDE LEVEL 109 MMOL/L (98-107); CHOLESTEROL LEVEL 172 MG/DL (<200); CHOLESTEROL RISK RATIO 2.41 (<5); CREATININE FOR GFR 0.88 MG/DL (0.55-1.30); GLOMERULAR FILTRATION RATE > 60.0 (>39); GLUCOSE, FASTING 106 MG/DL (74-106); HDL CHOLESTEROL 71.3 MG/DL (>40); LDL CHOLESTEROL 65.9 MG/DL (<100); NON-HDL-C 100.7 MG/DL; POTASSIUM SERUM 4.3 MMOL/L (3.5-5.1); SODIUM LEVEL 143 MMOL/L (136-145); TOTAL 25(OH) VITAMIN D 53.7 NG/ML (20.0-100.0); TOTAL PROTEIN 6.7 G/DL (5.7-8.2); TRIGLYCERIDES LEVEL 174 MG/DL (<150)
[2022-09-05 11:14] LABS: FERRITIN 31.6 NG/ML (7.3-270.7)
[2022-09-05 11:44] LABS: HEMOGLOBIN A1c 6.1 % (4.0-6.0)
== END ==
LOC: M PLALAB 07:37
PROVIDERS: ATTEND Nurse Practitioner Adult Health
DX: R73.03 Prediabetes (principal); D64.9 Anemia, unspecified; E78.00 Pure hypercholesterolemia, unspecified; E55.9 Vitamin D deficiency, unspecified; Z79.899 Other long term (current) drug therapy

== ENCOUNTER → 2022-10-05 | Outpatient (CLI) | payer MEDICARE | LOC: M PLAIMG 07:25 | PROVIDERS: ATTEND Nurse Practitioner Adult Health | DX: M25.511 Pain in right shoulder (principal) ==

== ENCOUNTER → 2023-03-07 | Outpatient (CLI) | payer MEDICARE ==
[2023-03-07 15:46] LABS: HEMATOCRIT 34.1 % (36.0-47.0); HEMOGLOBIN 10.8 g/dl (12.0-15.5); MEAN CORPUSCULAR HEMOGLOBIN 29.8 pg (27.0-33.0); MEAN CORPUSCULAR HGB CONC 31.7 g/dl (32.0-36.5); MEAN CORPUSCULAR VOLUME 93.9 fl (80.0-96.0); PLATELET COUNT, AUTOMATED 273 10^3/uL (150-450); RED BLOOD COUNT 3.63 10^6/uL (4.00-5.40); WHITE BLOOD COUNT 11.3 10^3/uL (4.0-10.0)
[2023-03-07 15:58] LABS: HEMOGLOBIN A1c 5.8 % (4.0-6.0)
[2023-03-07 16:21] LABS: ALBUMIN 3.9 G/DL (3.2-5.2); ALKALINE PHOSPHATASE 151 U/L (46-116); ALT/SGPT 50 U/L (7.0-40); AST/SGOT 33 U/L (<34); BILIRUBIN,TOTAL 0.5 MG/DL (0.3-1.2); BLOOD UREA NITROGEN 39 MG/DL (9-23); CALCIUM LEVEL 9.9 MG/DL (8.3-10.6); CARBON DIOXIDE LEVEL 30 MMOL/L (20-31); CHLORIDE LEVEL 104 MMOL/L (98-107); CHOLESTEROL LEVEL 187 MG/DL (<200); CHOLESTEROL RISK RATIO 2.33 (<5); CREATININE FOR GFR 0.81 MG/DL (0.55-1.30); FERRITIN 75.9 NG/ML (7.3-270.7); GLOMERULAR FILTRATION RATE > 60.0 (>39); GLUCOSE, FASTING 83 MG/DL (74-106); LDL CHOLESTEROL 76.6 MG/DL (<100); POTASSIUM SERUM 4.5 MMOL/L (3.5-5.1); SODIUM LEVEL 141 MMOL/L (136-145); TOTAL 25(OH) VITAMIN D 53.8 NG/ML (20.0-100.0); TOTAL PROTEIN 7.3 G/DL (5.7-8.2); TRIGLYCERIDES LEVEL 152 MG/DL (<150)
== END ==
LOC: M PLALAB 12:46
PROVIDERS: ATTEND Nurse Practitioner Adult Health
DX: D64.9 Anemia, unspecified (principal); I10 Essential (primary) hypertension; R73.03 Prediabetes; E78.00 Pure hypercholesterolemia, unspecified; E55.9 Vitamin D deficiency, unspecified

== ENCOUNTER → 2023-04-03 | Outpatient (CLI) | payer MEDICARE ==
[2023-04-03 13:21] LABS: BASO # 0.1 10^3/uL (0.0-0.2); BASO % 0.9 % (0.0-1.0); EOS # 0.5 10^3/uL (0.0-0.5); EOS % 4.6 % (0.0-3.0); HEMATOCRIT 35.3 % (36.0-47.0); HEMOGLOBIN 10.9 g/dl (12.0-15.5); LYMPH # 2.5 10^3/uL (1.5-5.0); LYMPH % 25.3 % (24.0-44.0); MEAN CORPUSCULAR HEMOGLOBIN 29.1 pg (27.0-33.0); MEAN CORPUSCULAR HGB CONC 30.9 g/dl (32.0-36.5); MEAN CORPUSCULAR VOLUME 94.1 fl (80.0-96.0); MONO # 0.9 10^3/uL (0.0-0.8); MONO % 8.7 % (2.0-8.0); NEUTROPHILS # 5.9 10^3/uL (1.5-8.5); NEUTROPHILS % 60.1 % (36.0-66.0); PLATELET COUNT, AUTOMATED 298 10^3/uL (150-450); RED BLOOD COUNT 3.75 10^6/uL (4.00-5.40); WHITE BLOOD COUNT 9.8 10^3/uL (4.0-10.0)
[2023-04-03 13:30] LABS: ERYTHROCYTE SEDIMENTATION RATE 25 mm/hr (0-30)
[2023-04-03 13:44] LABS: LIPASE 37 U/L (12-53)
[2023-04-03 13:46] LABS: AMYLASE 78 U/L (30-118)
[2023-04-03 13:47] LABS: ALBUMIN 3.8 G/DL (3.2-5.2); ALKALINE PHOSPHATASE 138 U/L (46-116); ALT/SGPT 44 U/L (7.0-40); AST/SGOT 32 U/L (<34); BILIRUBIN,TOTAL 0.5 MG/DL (0.3-1.2); BLOOD UREA NITROGEN 41 MG/DL (9-23); CALCIUM LEVEL 9.9 MG/DL (8.3-10.6); CARBON DIOXIDE LEVEL 27 MMOL/L (20-31); CHLORIDE LEVEL 107 MMOL/L (98-107); CREATININE FOR GFR 0.83 MG/DL (0.55-1.30); GLOMERULAR FILTRATION RATE > 60.0 (>39); GLUCOSE, FASTING 91 MG/DL (74-106); POTASSIUM SERUM 4.8 MMOL/L (3.5-5.1); SODIUM LEVEL 142 MMOL/L (136-145); TOTAL PROTEIN 7.1 G/DL (5.7-8.2)
== END ==
LOC: M RAD 11:16
PROVIDERS: ATTEND Student in an Organized Health Care Education/Training Program
DX: K76.0 Fatty (change of) liver, not elsewhere classified (principal); K80.20 Calculus of gallbladder without cholecystitis without obstruction; Q61.02 Congenital multiple renal cysts; R10.10 Upper abdominal pain, unspecified

== ENCOUNTER → 2023-05-22 | Outpatient (CLI) | payer MEDICARE | LOC: M RAD 10:34 | PROVIDERS: ATTEND Registered Nurse Emergency | DX: R33.9 Retention of urine, unspecified (principal); R93.41 Abnormal radiologic findings on diagnostic imaging of renal pelvis, ureter, or bladder ==

== ENCOUNTER → 2023-07-12 | Outpatient (CLI) | payer MEDICARE | LOC: M RAD 09:25 | PROVIDERS: ATTEND Registered Nurse Emergency | DX: D41.02 Neoplasm of uncertain behavior of left kidney (principal); Z53.8 Procedure and treatment not carried out for other reasons ==

== ENCOUNTER → 2023-07-16 | Outpatient (CLI) | payer MEDICARE ==
[2023-07-16 10:02] LABS: BLOOD UREA NITROGEN 39 MG/DL (9-23); CALCIUM LEVEL 10.2 MG/DL (8.3-10.6); CARBON DIOXIDE LEVEL 30 MMOL/L (20-31); CHLORIDE LEVEL 107 MMOL/L (98-107); CREATININE FOR GFR 0.85 MG/DL (0.55-1.30); GLOMERULAR FILTRATION RATE > 60.0 (>39); GLUCOSE, FASTING 107 MG/DL (74-106); POTASSIUM SERUM 4.6 MMOL/L (3.5-5.1); SODIUM LEVEL 140 MMOL/L (136-145)
== END ==
LOC: M LAB 09:00
PROVIDERS: ATTEND Urology
DX: R93.41 Abnormal radiologic findings on diagnostic imaging of renal pelvis, ureter, or bladder (principal)

== ENCOUNTER → 2023-07-23 | Outpatient (CLI) | payer MEDICARE ==
[~2023-07-23] MED LIST changes: +ISOVUE-370 76% 100ML VIAL ONE
== END ==
LOC: M PLAIMG 09:53
PROVIDERS: ATTEND Registered Nurse Emergency
DX: N28.1 Cyst of kidney, acquired (principal)
CPT/HCPCS: 74170; Q9967

== ENCOUNTER → 2023-09-11 | Outpatient (CLI) | payer MEDICARE ==
[~2023-09-11] MED LIST changes: -ISOVUE-370 76% 100ML VIAL ONE
[2023-09-11 10:30] LABS: HEMATOCRIT 35.9 % (36.0-47.0); HEMOGLOBIN 11.2 g/dl (12.0-15.5); MEAN CORPUSCULAR HEMOGLOBIN 29.1 pg (27.0-33.0); MEAN CORPUSCULAR HGB CONC 31.2 g/dl (32.0-36.5); MEAN CORPUSCULAR VOLUME 93.2 fl (80.0-96.0); PLATELET COUNT, AUTOMATED 277 10^3/uL (150-450); RED BLOOD COUNT 3.85 10^6/uL (4.00-5.40); WHITE BLOOD COUNT 10.1 10^3/uL (4.0-10.0)
[2023-09-11 11:06] LABS: TOTAL 25(OH) VITAMIN D 75.9 NG/ML (20.0-100.0)
[2023-09-11 11:07] LABS: ALBUMIN 3.7 G/DL (3.2-5.2); BILIRUBIN,TOTAL 0.4 MG/DL (0.3-1.2); CALCIUM LEVEL 10.4 MG/DL (8.3-10.6); CHOLESTEROL RISK RATIO 2.2 (<5); CREATININE FOR GFR 0.96 MG/DL (0.55-1.30); GLOMERULAR FILTRATION RATE 59.8 (>39); HDL CHOLESTEROL 69.3 MG/DL (>40); LDL CHOLESTEROL 56.1 MG/DL (<100); MAGNESIUM LEVEL 1.8 MG/DL (1.8-2.4); NON-HDL-C 83.7 MG/DL; POTASSIUM SERUM 4.7 MMOL/L (3.5-5.1)
== END ==
LOC: M PLALAB 08:21
PROVIDERS: ATTEND Nurse Practitioner Adult Health
DX: I10 Essential (primary) hypertension (principal); E78.00 Pure hypercholesterolemia, unspecified; R73.03 Prediabetes; E55.9 Vitamin D deficiency, unspecified; D64.9 Anemia, unspecified

== ENCOUNTER → 2024-03-04 | Outpatient (CLI) | payer MEDICARE ==
[2024-03-04 11:55] LABS: ALBUMIN 3.7 G/DL (3.2-5.2); ALKALINE PHOSPHATASE 115 U/L (35-104); ALT/SGPT 19 U/L (7.0-40); AST/SGOT 17 U/L (<34); BILIRUBIN,TOTAL 0.6 MG/DL (0.3-1.2); BLOOD UREA NITROGEN 35 MG/DL (9-23); CALCIUM LEVEL 10.2 MG/DL (8.3-10.6); CARBON DIOXIDE LEVEL 28 MMOL/L (20-31); CHLORIDE LEVEL 108 MMOL/L (98-107); CHOLESTEROL LEVEL 154 MG/DL (<200); CHOLESTEROL RISK RATIO 2.06 (<5); CREATININE FOR GFR 0.87 MG/DL (0.55-1.30); GLOMERULAR FILTRATION RATE > 60.0 (>39); GLUCOSE, FASTING 105 MG/DL (74-106); HDL CHOLESTEROL 74.7 MG/DL (>40); IRON (FE) 56 UG/DL (50-170); LDL CHOLESTEROL 53.5 MG/DL (<100); MAGNESIUM LEVEL 1.7 MG/DL (1.8-2.4); NON-HDL-C 79.3 MG/DL; PERCENT SATURATION 16.2 % (13.2-45.0); POTASSIUM SERUM 4.2 MMOL/L (3.5-5.1); SODIUM LEVEL 140 MMOL/L (136-145); TOTAL IRON BINDING CAPACITY 345 UG/DL (250-425); TOTAL PROTEIN 7.3 G/DL (5.7-8.2); TRIGLYCERIDES LEVEL 129 MG/DL (<150)
[2024-03-04 11:56] LABS: FERRITIN 56.5 NG/ML (7.3-270.7); HEMATOCRIT 38.1 % (36.0-47.0); MEAN CORPUSCULAR HEMOGLOBIN 29.2 pg (27.0-33.0); MEAN CORPUSCULAR HGB CONC 31.5 g/dl (32.0-36.5); MEAN CORPUSCULAR VOLUME 92.7 fl (80.0-96.0); PLATELET COUNT, AUTOMATED 330 10^3/uL (150-450); RED BLOOD COUNT 4.11 10^6/uL (4.00-5.40); WHITE BLOOD COUNT 10.3 10^3/uL (4.0-10.0)
[2024-03-04 11:57] LABS: TOTAL 25(OH) VITAMIN D 79.4 NG/ML (20.0-100.0)
== END ==
LOC: M PLALAB 08:13
PROVIDERS: ATTEND Nurse Practitioner Adult Health
DX: D64.9 Anemia, unspecified (principal); I10 Essential (primary) hypertension; R73.03 Prediabetes; E78.00 Pure hypercholesterolemia, unspecified; E55.9 Vitamin D deficiency, unspecified

== ENCOUNTER → 2024-08-25 | Outpatient (CLI) | payer MEDICARE ==
[~2024-08-25] MED LIST changes: +MORP-137 PO; +MORP-138 PO; -MORP15TASA PO; -MSIR30TA PO
[2024-08-25 14:33] LABS: HEMATOCRIT 39.4 % (36.0-47.0); HEMOGLOBIN 12.3 g/dl (12.0-15.5); MEAN CORPUSCULAR HEMOGLOBIN 28.9 pg (27.0-33.0); MEAN CORPUSCULAR HGB CONC 31.2 g/dl (32.0-36.5); MEAN CORPUSCULAR VOLUME 92.5 fl (80.0-96.0); PLATELET COUNT, AUTOMATED 316 10^3/uL (150-450); RED BLOOD COUNT 4.26 10^6/uL (4.00-5.40); WHITE BLOOD COUNT 9.5 10^3/uL (4.0-10.0)
[2024-08-25 14:38] LABS: FERRITIN 45.3 NG/ML (7.3-270.7)
[2024-08-25 14:42] LABS: BILIRUBIN,TOTAL 0.6 MG/DL (0.3-1.2); CALCIUM LEVEL 9.9 MG/DL (8.3-10.6); CHOLESTEROL RISK RATIO 2.77 (<5); CREATININE FOR GFR 0.8 MG/DL (0.55-1.30); GLOMERULAR FILTRATION RATE 74.9 (>39); HDL CHOLESTEROL 90.9 MG/DL (>40); LDL CHOLESTEROL 130.9 MG/DL (<100); MAGNESIUM LEVEL 1.7 MG/DL (1.8-2.4); NON-HDL-C 161.1 MG/DL; POTASSIUM SERUM 4.6 MMOL/L (3.5-5.1); TOTAL PROTEIN 7.4 G/DL (5.7-8.2)
== END ==
LOC: M PLALAB 09:25
PROVIDERS: ATTEND Nurse Practitioner Adult Health
DX: D64.9 Anemia, unspecified (principal); I10 Essential (primary) hypertension; E78.00 Pure hypercholesterolemia, unspecified; R73.03 Prediabetes; E55.9 Vitamin D deficiency, unspecified

== ENCOUNTER 2024-11-05 16:41 | Emergency (ER) | payer MEDICARE ==
[~2024-11-05] VITALS: Ht 152.4 cm; Wt 73.6 kg
[~2024-11-05 16:41] MED LIST changes: -ESSE250T PO; -IBUP-1022 PO; +IBUP600T42 PO; +MAGN250T17 PO; -RA T500C2 PO; +TURM500C10 PO
[2024-11-05 17:50] LABS: BASO # 0.1 10^3/uL (0.0-0.2); BASO % 0.6 % (0.0-1.0); EOS # 0.3 10^3/uL (0.0-0.5); EOS % 2.7 % (0.0-3.0); LYMPH # 3.3 10^3/uL (1.5-5.0); LYMPH % 29.7 % (24.0-44.0); MONO # 1.0 10^3/uL (0.0-0.8); MONO % 9.0 % (2.0-8.0); NEUTROPHILS # 6.3 10^3/uL (1.5-8.5); NEUTROPHILS % 57.6 % (36.0-66.0); PLATELET COUNT, AUTOMATED 348 10^3/uL (150-450)
[2024-11-05 18:19] LABS: CK-MB VALUE MASS 1.7 NG/ML (<3.6)
[2024-11-05 18:20] LABS: CPK CREATINE PHOSPHOKINASE 94 U/L (34-145); MB/CK RELATIVE INDEX 1.80 (< OR =4)
[2024-11-05 18:21] LABS: ALT/SGPT 19 U/L (7.0-40); AST/SGOT 24 U/L (<34); CALCIUM LEVEL 10.5 MG/DL (8.3-10.6); CARBON DIOXIDE LEVEL 31 MMOL/L (20-31); CHLORIDE LEVEL 96 MMOL/L (98-107); CREATININE FOR GFR 1.03 MG/DL (0.55-1.30); GLOMERULAR FILTRATION RATE 55.0 (>32); POTASSIUM SERUM 4.2 MMOL/L (3.5-5.1); SODIUM LEVEL 141 MMOL/L (136-145)
[2024-11-05 18:22] LABS: THYROXINE (T4) 8.8 UG/DL (4.5-10.9)
[2024-11-05] MEDS ORDERED: PANTOPRAZOLE 40MG TAB PO ONE (19:50)
[2024-11-05] MEDS ORDERED: FAMOTIDINE 20 MG/2 ML VIAL IVP ONE (19:50)
[2024-11-05] MEDS ORDERED: PROT20TA11 PO (20:07)
[2024-11-05] MEDS ORDERED: PEPC1TAB5 PO (20:09)
[2024-11-05 21:00] VITALS: BP 161/75; TEMP 97.5; O2SAT 93
[2024-11-05] MEDS: predniSONE 20 MG TAB PO ONE (21:08)
[2024-11-05] MEDS: FAMOTIDINE 20 MG TAB PO ONE (21:08)
[2024-11-05] MEDS ORDERED: DOXY-442 PO (21:08)
[2024-11-05] MEDS ORDERED: PRED20TA PO (21:08)
[2024-11-05] MEDS ORDERED: CETI10CH PO (21:14)
== END 2024-11-05 21:30 | disposition home or self-care (01) ==
LOC: M ED 16:41
DX: R06.2 Wheezing (principal); I11.9 Hypertensive heart disease without heart failure; E78.5 Hyperlipidemia, unspecified; Z79.899 Other long term (current) drug therapy; Z91.040 Latex allergy status

== ENCOUNTER → 2025-01-05 | Outpatient (CLI) | payer MEDICARE ==
[~2025-01-05] MED LIST changes: +CETI10CH PO; +DOXY-442 PO; +PEPC1TAB5 PO; +PRED20TA PO; +PROT20TA11 PO
== END ==
LOC: M PLAIMG 08:39
PROVIDERS: ATTEND Physician Assistant
DX: R91.8 Other nonspecific abnormal finding of lung field (principal); R06.02 Shortness of breath; J43.9 Emphysema, unspecified; J98.11 Atelectasis

== ENCOUNTER 2025-01-07 12:20 | Emergency (ER) | payer MEDICARE ==
[~2025-01-07] VITALS: Ht 152.4 cm; Wt 73.0 kg
[2025-01-07 13:16] LABS: BASO # 0.1 10^3/uL (0.0-0.2); BASO % 0.3 % (0.0-1.0); EOS # 0.1 10^3/uL (0.0-0.5); EOS % 0.4 % (0.0-3.0); LYMPH # 1.5 10^3/uL (1.5-5.0); LYMPH % 10.2 % (24.0-44.0); MONO # 0.9 10^3/uL (0.0-0.8); MONO % 5.9 % (2.0-8.0); NEUTROPHILS # 12.2 10^3/uL (1.5-8.5); NEUTROPHILS % 82.8 % (36.0-66.0); PLATELET COUNT, AUTOMATED 319 10^3/uL (150-450)
[2025-01-07 13:51] LABS: CALCIUM LEVEL 9.8 MG/DL (8.3-10.6); CARBON DIOXIDE LEVEL 27.0 MMOL/L (20-31); CHLORIDE LEVEL 103.0 MMOL/L (98-107); CREATININE FOR GFR 0.79 MG/DL (0.55-1.30); GLOMERULAR FILTRATION RATE 75.6 (>32); POTASSIUM SERUM 4.2 MMOL/L (3.5-5.1); SODIUM LEVEL 140.0 MMOL/L (136-145)
[2025-01-07 13:54] LABS: CPK CREATINE PHOSPHOKINASE 131.0 U/L (34-145)
[2025-01-07 14:32] VITALS: BP 148/63; TEMP 97.8; O2SAT 98
== END 2025-01-07 14:41 | disposition home or self-care (01) ==
LOC: M ED 12:20
DX: S00.83XA Contusion of other part of head, initial encounter (principal); W01.198A Fall on same level from slipping, tripping and stumbling with subsequent striking against other object, initial encounter; Y92.009 Unspecified place in unspecified non-institutional (private) residence as the place of occurrence of the external cause; Y93.9 Activity, unspecified; Y99.9 Unspecified external cause status; I10 Essential (primary) hypertension